=== PATIENT | female | born 1935 | race Caucasian/White ===

== ENCOUNTER 2021-11-05 11:40 | Inpatient (IN) ==
[2021-11-05 13:16] LABS: Basophils # (auto) 0.02 K/uL (0-0.2); Basophils % (auto) 0.3 %; Eosinophils % (auto) 1.6 %; Hematocrit (blood only) 40.9 % (37-47); Hemoglobin 12.9 g/dL (12.0-16.0); Immature Granulocytes # (auto) 0.01 K/uL (0.00-0.02); Immature Granulocytes % (auto) 0.2 %; Lymphocytes # (auto) 1.67 K/uL (1.2-3.4); Lymphocytes % (auto) 27.5 %; Mean Corpuscular Hemoglobin 30.5 pg (25-34); Mean Corpuscular Hgb Conc 31.5 g/dL (32-36); Mean Corpuscular Volume 96.7 fL (80-100); Monocytes # (auto) 0.46 K/uL (0.11-0.59); Monocytes % (auto) 7.6 %; Neutrophils # (auto) 3.81 K/uL (1.4-6.5); Neutrophils % (auto) 62.8 %; Platelet Count 277 K/uL (130-400); RDW Coefficient of Variation 13.6 % (11.5-14.5); RDW Standard Deviation 48.2 fL (36.4-46.3); Red Blood Count 4.23 M/uL (4.2-5.4); White Blood Count 6.07 K/uL (4.8-10.8)
[2021-11-05 13:35] LABS: Albumin Level 3.4 gm/dl (3.4-5.0); Calcium 8.8 mg/dl (8.5-10.1); Creatinine Clr Calc Pharmacy 35.2 ml/min; Est GFR (African American) 44.6 ml/min; Est GFR (Non-African American) 38.5 ml/min; Potassium 3.9 mmol/L (3.5-5.1)
[2021-11-05 13:38] LABS: Albumin Globulin Ratio 0.7 (0.9-2); Bilirubin,Total 0.6 mg/dl (0.2-1); Total Protein 8.4 gm/dl (6.4-8.2)
[2021-11-05] MEDS ORDERED: MECLIZINE HCL 25 MG TAB PO STA (14:07)
--- NOTE | 2021-11-05 14:09 | Emergency Department Note ---
Impression & Plan Dizziness, Hypertensive urgency ED Provider Note NAME: JUHI QUESADA AGE: 86 SEX: F : 1935 ARRIVES VIA: Walk-In INFORMANT: Patient ED PROVIDER(S): Octavio Paris DO CHIEF COMPLAINT: Dizzy HPI: Patient is an 86-year-old female who presents to the ER for dizziness. This started this past . She notes it comes and goes with movement of her head or changing positions. At rest it goes away. She has mild posterior headache 4 out of 10. No weakness or numbness in her arms or legs. She does have some nausea. No chest pain or shortness of breath. No vomiting or diarrhea. No dysuria, urgency, or frequency. She has been taking all of her medications as she normally does which includes amlodipine and metoprolol. She has had this once before and was worked up in nothing was found to be acute. ROS: See above HPI for pertinent positives & negatives. A total of 10 systems reviewed and were otherwise negative. PAST MEDICAL HISTORY:See Below PAST SURGICAL HISTORY:See Below FAMILY HISTORY:See Below SOCIAL HISTORY:See Below HOME MEDICATIONS:See Below ALLERGIES:See Below VITALS:See Below PHYSICAL EXAMINATION: GENERAL: Sitting up in bed, alert, well appearing, well nourished, no distress, non-toxic EYE EXAM: normal conjunctiva. PERRL and EOM's intact. OROPHARYNX: no exudate, no erythema, lips, buccal mucosa, and tongue normal and mucous membranes are moist NECK: supple, no nuchal rigidity, no adenopathy, non-tender LUNGS: Clear to auscultation. Normal chest wall mechanics HEART: no murmurs, S1 normal and S2 normal ABDOMEN: abdomen soft, non-tender, normo-active bowel sounds, no masses, no rebound or guarding. UPPER EXTREMITIES: upper extremities are grossly normal. LOWER EXTREMITIES: No pitting edema. NEURO EXAM: Normal sensorium, cranial nerves II-XII intact, normal speech, no weakness of arms, no weakness of legs. No drift. Finger to nose intact. Gross sensation intact. MEDICAL DECISION MAKING: Patient is an 86-year-old female who presents the ER for dizziness. This appears to be very vertiginous as its changing positions. Vitals were remarkable for systolics in the 230s. IV was established blood work was obtained. Labs show no significant leukocytosis or anemia. BMP with a creatini ne 1.27. LFTs bilirubin were unremarkable. Troponin was negative. UA was unremarkable. Covid was negative. Systolics were in the 230s and trended down to the 190s after IV hydralazine. She was given her oral amlodipine. She is updated bedside. Discussed with hospitalist for further evaluation. Triage Nursing notes reviewed. Limited review of prior medical records performed Vital Signs: reviewed and remarkable for HTN Differential diagnosis: Differential diagnosis includes etiologies such as benign positional vertigo, dehydration, hypovolemia, anemia, tumor, infection, hypoglycemia, electrolyte abnormalities, cardiac sources, intracerebral event, toxicologic, neurological, as well as others were entertained. ER treatment provided: See below Diagnostics interpreted by me: ECG: Sinus rhythm rate of 71 Normal axis PVCs present QTC 449 Cardiac Monitoring: An order was placed for continuous cardiac monitoring. The monitor shows a rate of 80 with sinus rhythm. Laboratory studies: As stated above and show below. Imaging studies: CT angios of the head and neck show Consultation(s): Discussed with hospitalist for further evaluation Procedures: none Critical Care: None Past Med/Surg History Medical History History of CVA (cerebrovascular accident) HTN (hypertension) Post-surgical hypothyroidism PVC (premature ventricular contraction) Thyroid cancer Surgical History H/O thyroidectomy Family History Mother Hypertension Father Hypertension Social History Smoking Status: Former smoker Tobacco Type: Cigarettes Hx Alcohol Use: No Feels Safe at Home: Yes Allergies Allergies Allergy/AdvReac Type Severity Reaction Status Date / Time No Known Allergies Allergy Unverified 11/05/21 15:31 Home Meds Home Medications Medication Instructions Recorded Confirmed acetaminophen 500 mg tablet 500 mg PO HS 11/05/21 11/05/21 (Tylenol Extra Strength) amlodipine 10 mg tablet 10 mg PO DAILY 11/05/21 11/05/21 aspirin 81 mg tablet,delayed 81 mg PO DAILY 11/05/21 11/05/21 release calcium carb-ergocalciferol (vit 4 tab PO DAILY 11/05/21 11/05/21 D2) 600 mg calcium-200 unit tablet cholecalciferol (vitamin D3) 125 125 mcg PO DAILY 11/05/21 11/05/21 mcg (5,000 unit) tablet (Vitamin D3) citalopram 10 mg tablet 10 mg PO DAILY 11/05/21 11/05/21 levothyroxine 75 mcg tablet 75 mcg PO DAILY 11/05/21 11/05/21 (Euthyrox) metoprolol tartrate 25 mg tablet 12.5 mg PO BID 11/05/21 11/05/21 Results & Data (ED) Vital Signs Vital Signs - 24 hr 11/05/21 11:47 11/05/21 14:00 11/05/21 16:00 Temperature 36.1 C L Temperature Source Temporal Artery Scan Pulse Rate 68 Pulse Rate [Right Finger] 67 65 Pulse Rhythm [Right Finger] Regular Regular Pulse Strength [Right Finger] Normal Normal Respiratory Rate 20 18 16 Respiratory Effort / Characteristics Non-Labored Non-Labored Non-Labored Respiratory Depth Normal Normal Normal Respiratory Pattern Regular Regular Blood Pressure 183/85 H Blood Pressure [Right Arm] 209/82 H 196/87 H Blood Pressure Mean 117 Blood Pressure Mean [Right Arm] 124 123 Blood Pressure Position [Right Arm] Lying Lying Pulse Oximetry 96 95 95 Oxygen Delivery Method Room Air Room Air Room Air Sepsis Recent Fever Within 48 Hours No Sepsis New/Unexplained Change in Mental Status N/A Sepsis Action Taken by Nursing No Action Required 11/05/21 19:25 Temperature Temperature Source Pulse Rate Pulse Rate [Right Finger] 80 Pulse Rhythm [Right Finger] Regular Pulse Strength [Right Finger] Normal Respiratory Rate 18 Respiratory Effort / Characteristics Non-Labored Spontaneous Respiratory Depth Normal Respiratory Pattern Regular Blood Pressure Blood Pressure [Right Arm] 191/83 H Blood Pressure Mean Blood Pressure Mean [Right Arm] 119 Blood Pressure Position [Right Arm] Lying Pulse Oximetry 95 Oxygen Delivery Method Room Air Sepsis Recent Fever Within 48 Hours Sepsis New/Unexplained Change in Mental Status Sepsis Action Taken by Nursing Laboratory Data Result diagrams: 11/05/21 12:57 11/05/21 12:57 Lab Results 11/05/21 11/05/21 11/05/21 Range/Units 12:57 12:57 14:02 WBC 6.07 (4.8-10.8) K/uL RBC 4.23 (4.2-5.4) M/uL Hgb 12.9 (12.0-16.0) g/dL Hct 40.9 (37-47) % MCV 96.7 (80-100) fL MCH 30.5 (25-34) pg MCHC 31.5 L (32-36) g/dL RDW Std Deviation 48.2 H (36.4-46.3) fL RDW Coeff of Nathan 13.6 (11.5-14.5) % Plt Count 277 (130-400) K/uL MPV 11.0 H (7.4-10.4) fL Immature Gran % (Auto) 0.2 % Neut % (Auto) 62.8 % Lymph % (Auto) 27.5 % Howard % (Auto) 7.6 % Eos % (Auto) 1.6 % Baso % (Auto) 0.3 % Neut # (Auto) 3.81 (1.4-6.5) K/uL Lymph # (Auto) 1.67 (1.2-3.4) K/uL Howard # (Auto) 0.46 (0.11-0.59) K/uL Eos # (Auto) 0.10 (0-0.5) K/uL Baso # (Auto) 0.02 (0-0.2) K/uL Immature Gran # (Auto) 0.01 (0.00-0.02) K/uL Sodium 135 L (136-145) mmol/L Potassium 3.9 (3.5-5.1) mmol/L Chloride 101 (98-107) mmol/L Carbon Dioxide 29 (21-32) mmol/L Anion Gap 5.0 (3-11) BUN 23 H (7-18) mg/dl Creatinine 1.27 H (0.6-1.2) mg/dl Est Cr Clr Drug Dosing 35.2 ml/min Est GFR ( Amer) 44.6 ml/min Est GFR (Non-Af Amer) 38.5 ml/min BUN/Creatinine Ratio 18.0 (10-20) Glucose 102 H (70-99) mg/dl Calcium 8.8 (8.5-10.1) mg/dl Total Bilirubin 0.6 (0.2-1) mg/dl AST 24 (15-37) U/L ALT 32 (12-78) Alkaline Phosphatase 86 (45-117) U/L Troponin I (0-0.045) ng/ml Total Protein 8.4 H (6.4-8.2) gm/dl Albumin 3.4 (3.4-5.0) gm/dl Globulin 5.0 H (2.5-4.0) gm/dl Albumin/Globulin Ratio 0.7 L (0.9-2) Urine Color Yellow Urine Appearance Clear (Clear) Urine pH 7.5 (4.5-7.5) Ur Specific [place] 1.036 H (1.000-1.030) Urine Protein Negative (Negative) Urine Glucose (UA) Negative (Negative) Urine Ketones Negative (Negative) Urine Blood Negative (Negative) Urine Nitrite Negative (Negative) Urine Bilirubin Negative (Negative) Urine Urobilinogen Negative (Negative) Ur Leukocyte Esterase Negative (Negative) SARS-CoV-2, RNA, NAAT (NEGATIVE) 11/05/21 11/05/21 Range/Units 14:44 19:15 WBC (4.8-10.8) K/uL RBC (4.2-5.4) M/uL Hgb (12.0-16.0) g/dL Hct (37-47) % MCV (80-100) fL MCH (25-34) pg MCHC (32-36) g/dL RDW Std Deviation (36.4-46.3) fL RDW Coeff of Nathan (11.5-14.5) % Plt Count (130-400) K/uL MPV (7.4-10.4) fL Immature Gran % (Auto) % Neut % (Auto) % Lymph % (Auto) % Howard % (Auto) % Eos % (Auto) % Baso % (Auto) % Neut # (Auto) (1.4-6.5) K/uL Lymph # (Auto) (1.2-3.4) K/uL Howard # (Auto) (0.11-0.59) K/uL Eos # (Auto) (0-0.5) K/uL Baso # (Auto) (0-0.2) K/uL Immature Gran # (Auto) (0.00-0.02) K/uL Sodium (136-145) mmol/L Potassium (3.5-5.1) mmol/L Chloride (98-107) mmol/L Carbon Dioxide (21-32) mmol/L Anion Gap (3-11) BUN (7-18) mg/dl Creatinine (0.6-1.2) mg/dl Est Cr Clr Drug Dosing ml/min Est GFR ( Amer) ml/min Est GFR (Non-Af Amer) ml/min BUN/Creatinine Ratio (10-20) Glucose (70-99) mg/dl Calcium (8.5-10.1) mg/dl Total Bilirubin (0.2-1) mg/dl AST (15-37) U/L ALT (12-78) Alkaline Phosphatase (45-117) U/L Troponin I < 0.015 (0-0.045) ng/ml Total Protein (6.4-8.2) gm/dl Albumin (3.4-5.0) gm/dl Globulin (2.5-4.0) gm/dl Albumin/Globulin Ratio (0.9-2) Urine Color Urine Appearance (Clear) Urine pH (4.5-7.5) Ur Specific [place] (1.000-1.030) Urine Protein (Negative) Urine Glucose (UA) (Negative) Urine Ketones (Negative) Urine Blood (Negative) Urine Nitrite (Negative) Urine Bilirubin (Negative) Urine Urobilinogen (Negative) Ur Leukocyte Esterase (Negative) SARS-CoV-2, RNA, NAAT NEGATIVE (NEGATIVE) Administered Medications Hydralazine HCl (Hydralazine Hcl 20 Mg/Ml Vial) 5 mg IV Q6H PRN PRN Reason: HTN Stop: 12/05/21 19:14 Last Admin: 11/05/21 19:25 Dose: 5 mg Documented by: [id number] Discontinued Medications Amlodipine Besylate (Amlodipine Besylate 5 Mg Tab) 10 mg PO NOW ONE Stop: 11/05/21 16:43 Last Admin: 11/05/21 17:57 Dose: 10 mg Documented by: [id number] Hydralazine HCl (Hydralazine Hcl 20 Mg/Ml Vial) 10 mg IV NOW STA Stop: 11/05/21 17:27 Last Admin: 11/05/21 17:57 Dose: 10 mg Documented by: [id number] Sodium Chloride (Nss) 500 mls @ 999 mls/hr IV .Q31M ONE Stop: 11/05/21 16:02 Last Infusion: 11/05/21 17:57 Dose: 0 mls/hr Documented by: [id number] Admin: 11/05/21 16:10 Dose: 999 mls/hr Documented by: [id number] Ioversol (Optiray 320 125ml) 117 ml IV ONCE ONE Stop: 11/05/21 15:01 Last Admin: 11/05/21 15:01 Dose: 117 ml Documented by: [id number] Meclizine HCl (Meclizine Hcl 25 Mg Tab) 25 mg PO NOW STA Stop: 11/05/21 14:08 Last Admin: 11/05/21 14:43 Dose: 25 mg Documented by: [id number] Imaging Data Radiologist's Impression: Head CTA 11/05/21 14:06 CT ANGIOGRAM OF THE BRAIN COMBO; CT ANGIOGRAM OF THE NECK CLINICAL HISTORY: Headache. Dizziness. COMPARISON STUDY: No priors. TECHNIQUE: Unenhanced axial CT scan of the brain is performed. Subsequently, following the IV administration of 117 of Optiray 320, CT angiogram of the head and neck was performed from the aortic arch to the vertex. Images are reviewed in the axial, sagittal, and coronal planes. 3-D MIPS images are created and assessed. IV contrast was administered without complication. All measurements were calculated based on NASCET criteria. A dose lowering technique was uti lized adhering to the principles of ALARA. CT DOSE: 1071.35 mGy.cm FINDINGS: Brain parenchyma: There is age-related involutional change noting [id number] subcortical and periventricular microangiopathic disease. There is no hemorrhage, mass effect, or evidence of acute territorial ischemia by CT criteria. There is no evidence of enhancing mass lesion on the angiogram phase images. A small chronic lacunar infarct is noted in the right cerebellar hemisphere. The ventricles, sulci, and cisterns are prominent secondary to involutional change. Blackburn-white matter differentiation is preserved. No extra- axial fluid collection is seen. Thoracic aorta: There is atherosclerotic calcification of the thoracic aorta. Visualized portions of the thoracic aorta are normal in caliber. The aortic arch demonstrates bovine variant anatomy. Right carotid arterial system: The right common carotid artery is widely patent. Atherosclerotic plaque in the carotid bulb causes approximately 50% luminal narrowing at the origin of the right internal carotid artery. The remainder of the internal carotid artery is widely patent, as is the external carotid artery. Left carotid arterial system: The left common carotid artery is widely patent, as are the left internal and external carotid arteries. Calcified plaque is noted in the carotid bulb. Vertebral arteries: The vertebral arteries are widely patent bilaterally noting left-sided dominance. Subclavian arteries: Widely patent bilaterally. Intracranial vasculature: There is atherosclerotic calcification of the cavernous carotid and vertebral arteries. The internal carotid arteries are patent at the skull base, as are the anterior and middle cerebral arteries bilaterally. The vertebrobasilar system and posterior cerebral arteries are widely patent. The left vertebral artery is dominant. 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 No additional aneurysm is seen. No high-grade stenosis or focal vessel cut off is identified Throughout the intracranial circulation. Jugular veins: Patent bilaterally. Dural sinuses: Patent. Lung apices: Partially visualized upper lobe lung parenchyma appears clear. Soft tissues: The visualized pharyngeal soft tissues are normal in appearance noting angiographic phase technique. The oropharyngeal airway appears widely patent. The thyroid gland is atrophic. The salivary glands are normal in appearance. No cervical lymphadenopathy is seen. Skeletal structures: The skeletal structures are osteopenic. The calvarium appears intact. The cervical spine is maintained noting multilevel spondylosis. No lytic or blastic lesion is seen. Orbits: The bony orbits are intact. Orbital contents are normal as visualized. Sinuses and mastoids: There is mild mucosal thickening in the left frontal sinus. The remaining paranasal sinuses are clear. The mastoid air cells are well pneumatized. IMPRESSION: 1. There is no hemorrhage, mass effect, or evidence of acute territorial isch emia by CT criteria. 2. 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 3. Otherwise unremarkable CT angiogram of the brain. 4. There is approximately 50% focal stenosis at the origin of the right internal carotid artery. 4. Otherwise unremarkable CT angiogram of the neck. ACT 112: Negative or not required by law. Electronically signed by: Hill Gonzalez M.D. 11/05/2021 3:19 PM Neck CTA 11/05/21 14:06 CT ANGIOGRAM OF THE BRAIN COMBO; CT ANGIOGRAM OF THE NECK CLINICAL HISTORY: Headache. Dizziness. COMPARISON STUDY: No priors. TECHNIQUE: Unenhanced axial CT scan of the brain is performed. Subsequently, following the IV administration of 117 of Optiray 320, CT angiogram of the head and neck was performed from the aortic arch to the vertex. Images are reviewed in the axial, sagittal, and coronal planes. 3-D MIPS images are created and assessed. IV contrast was administered without complication. All measurements were calculated based on NASCET criteria. A dose lowering technique was utilized adhering to the principles of ALARA. CT DOSE: 1071.35 mGy.cm FINDINGS: Brain parenchyma: There is age-related involutional change noting [id number] subcortical and periventricular microangiopathic disease. There is no hemorrhage, mass effect, or evidence of acute territorial ischemia by CT criteria. There is no evidence of enhancing mass lesion on the angiogram phase images. A small chronic lacunar infarct is noted in the right cerebellar hemisphere. The ventricles, sulci, and cisterns are prominent secondary to involutional change. Blackburn-white matter differentiation is preserved. No extra- axial fluid collection is seen. Thoracic aorta: There is atherosclerotic calcification of the thoracic aorta. Visualized portions of the thoracic aorta are normal in caliber. The aortic arch demonstrates bovine variant anatomy. Right carotid arterial system: The right common carotid artery is widely patent. Atherosclerotic plaque in the carotid bulb causes approximately 50% luminal narrowing at the origin of the right internal carotid artery. The remainder of the internal carotid artery is widely patent, as is the external carotid artery. Left carotid arterial system: The left common carotid artery is widely patent, as are the left internal and external carotid arteries. Calcified plaque is noted in the carotid bulb. Vertebral arteries: The vertebral arteries are widely patent bilaterally noting left-sided dominance. Subclavian arteries: Widely patent bilaterally. Intracranial vasculature: There is atherosclerotic calcification of the cavernous carotid and vertebral arteries. The internal carotid arteries are patent at the skull base, as are the anterior and middle cerebral arteries bilaterally. The vertebrobasilar system and posterior cerebral arteries are wi lyudmila patent. The left vertebral artery is dominant. 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 No additional aneurysm is seen. No high-grade stenosis or focal vessel cut off is identified Throughout the intracranial circulation. Jugular veins: Patent bilaterally. Dural sinuses: Patent. Lung apices: Partially visualized upper lobe lung parenchyma appears clear. Soft tissues: The visualized pharyngeal soft tissues are normal in appearance noting angiographic phase technique. The oropharyngeal airway appears widely patent. The thyroid gland is atrophic. The salivary glands are normal in appearance. No cervical lymphadenopathy is seen. Skeletal structures: The skeletal structures are osteopenic. The calvarium appears intact. The cervical spine is maintained noting multilevel spondylosis. No lytic or blastic lesion is seen. Orbits: The bony orbits are intact. Orbital contents are normal as visualized. Sinuses and mastoids: There is mild mucosal thickening in the left frontal sinus. The remaining paranasal sinuses are clear. The mastoid air cells are well pneumatized. IMPRESSION: 1. There is no hemorrhage, mass effect, or evidence of acute territorial ischemia by CT criteria. 2. 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 3. Otherwise unremarkable CT angiogram of the brain. 4. There is approximately 50% focal stenosis at the origin of the right internal carotid artery. 4. Otherwise unremarkable CT angiogram of the neck. ACT 112: Negative or not required by law. Electronically signed by: Hill Gonzalez M.D. 11/05/2021 3:19 PM Chest X-Ray 11/05/21 14:09 SINGLE VIEW CHEST CLINICAL HISTORY: Dizziness. FINDINGS: An AP, portable, upright chest radiograph is obtained. No prior studies are available for comparison at the time of dictation. The examination is mildly degraded by portable technique and patient rotation. There is a large hiatal hernia. The cardiomediastinal silhouette is unremarkable noting athe rosclerotic calcification of the thoracic aorta. There is mild bibasilar scarring/atelectasis. The lungs and pleural spaces are otherwise clear. No pneumothorax is seen. The skeletal structures are osteopenic. The bony thorax is grossly intact. IMPRESSION: 1. No acute cardiopulmonary abnormality. 2. Large hiatal hernia. ACT 112: Negative or not required by law. Electronically signed by: Hill Gonzalez M.D. 11/05/2021 3:04 PM Discharge Plan Visit Data Chief Complaint: Dizziness Stated Complaint: DIZZINESS, NAUSEA, GENERALIZED PAIN ED Provider: Octavio Paris Discharge Problem: Dizziness, Hypertensive urgency Forms Stand Alone Forms: My [facility] Prescriptions Prescriptions: No Action citalopram 10 mg tablet 10 mg PO DAILY RF: 0 aspirin [Aspir-Low] 81 mg Tablet,Delayed Release (Dr/Ec) 81 mg PO DAILY RF: 0 acetaminophen [Tylenol Extra Strength] 500 mg Tablet 500 mg PO HS RF: 0 levothyroxine [Euthyrox] 75 mcg tablet 75 mcg PO DAILY RF: 0 amlodipine 10 mg tablet 10 mg PO DAILY RF: 0 Calcium + Vitamin D 600 mg calcium- 200 unit Tablet 4 tab PO DAILY RF: 0 metoprolol tartrate 25 mg tablet 12.5 mg PO BID RF: 0 cholecalciferol (vitamin D3) [Vitamin D3] 125 mcg (5,000 unit) Tablet 125 mcg PO DAILY RF: 0 Referrals Referrals: PCP,NO [Primary Care Provider] -
[2021-11-05] MEDS ORDERED: OPTIRAY 320 125ml IV ONE (15:00)
--- NOTE | 2021-11-05 15:06 | XRay Report ---
SINGLE VIEW CHEST CLINICAL HISTORY: Dizziness. FINDINGS: An AP, portable, upright chest radiograph is obtained. No prior studies are available for c omparison at the time of dictation. The examination is mildly degraded by portable technique and tomasz ent rotation. There is a large hiatal hernia. The cardiomediastinal silhouette is unremarkable noting atherosclerotic calcification of the thoracic aorta. There is mild bibasilar scarring/atelectasis. T he lungs and pleural spaces are otherwise clear. No pneumothorax is seen. The skeletal structures are osteopenic. The bony thorax is grossly intact. IMPRESSION: 1. No acute cardiopulmonary abnormality. 2. Large hiatal hernia. ACT 112: Negative or not required by law. Electronically signed by: Hill Gonzalez M.D. 11/05/2021 3:04 PM
--- NOTE | 2021-11-05 15:20 | CT Scan Report ---
CT ANGIOGRAM OF THE BRAIN COMBO; CT ANGIOGRAM OF THE NECK CLINICAL HISTORY: Headache. Dizziness. COMPARISON STUDY: No priors. TECHNIQUE: Unenhanced axial CT scan of the brain is performed. Subsequently, following the IV adminis tration of 117 of Optiray 320, CT angiogram of the head and neck was performed from the aortic arch t o the vertex. Images are reviewed in the axial, sagittal, and coronal planes. 3-D MIPS images are cre ated and assessed. IV contrast was administered without complication. All measurements were calculate d based on NASCET criteria. A dose lowering technique was utilized adhering to the principles of ALA RA. CT DOSE: 1071.35 mGy.cm FINDINGS: Brain parenchyma: There is age-related involutional change noting [id number] subcortical and pe riventricular microangiopathic disease. There is no hemorrhage, mass effect, or evidence of acute ter ritorial ischemia by CT criteria. There is no evidence of enhancing mass lesion on the angiogram phas e images. A small chronic lacunar infarct is noted in the right cerebellar hemisphere. The ventricles , sulci, and cisterns are prominent secondary to involutional change. Blackburn-white matter differentiati on is preserved. No extra-axial fluid collection is seen. Thoracic aorta: There is atherosclerotic calcification of the thoracic aorta. Visualized portions of the thoracic aorta are normal in caliber. The aortic arch demonstrates bovine variant anatomy. Right carotid arterial system: The right common carotid artery is widely patent. Atherosclerotic plaq ue in the carotid bulb causes approximately 50% luminal narrowing at the origin of the right internal carotid artery. The remainder of the internal carotid artery is widely patent, as is the external ca rotid artery. Left carotid arterial system: The left common carotid artery is widely patent, as are the left internal medicine veterinary technician al and external carotid arteries. Calcified plaque is noted in the carotid bulb. Vertebral arteries: The vertebral arteries are widely patent bilaterally noting left-sided dominance. Subclavian arteries: Widely patent bilaterally. Intracranial vasculature: There is atherosclerotic calcification of the cavernous carotid and vertebr al arteries. The internal carotid arteries are patent at the skull base, as are the anterior and midd le cerebral arteries bilaterally. The vertebrobasilar system and posterior cerebral arteries are wide ly patent. The left vertebral artery is dominant. 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 No additional aneurysm is seen. No high-grade stenosis or focal vessel cut off is identified Throughout the intracranial circulation. Jugular veins: Patent bilaterally. Dural sinuses: Patent. Lung apices: Partially visualized upper lobe lung parenchyma appears clear. Soft tissues: The visualized pharyngeal soft tissues are normal in appearance noting angiographic pha se technique. The oropharyngeal airway appears widely patent. The thyroid gland is atrophic. The sali vary glands are normal in appearance. No cervical lymphadenopathy is seen. Skeletal structures: The skeletal structures are osteopenic. The calvarium appears intact. The cervic al spine is maintained noting multilevel spondylosis. No lytic or blastic lesion is seen. Orbits: The bony orbits are intact. Orbital contents are normal as visualized. Sinuses and mastoids: There is mild mucosal thickening in the left frontal sinus. The remaining paran emelyn sinuses are clear. The mastoid air cells are well pneumatized. IMPRESSION: 1. There is no hemorrhage, mass effect, or evidence of acute territorial ischemia by CT criteria. 2. 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 3. Otherwise unremarkable CT angiogram of the brain. 4. There is approximately 50% focal stenosis at the origin of the right internal carotid artery. 4. Otherwise unremarkable CT angiogram of the neck. ACT 112: Negative or not required by law. Electronically signed by: Hill Gonzalez M.D. 11/05/2021 3:19 PM
[2021-11-05] MEDS ORDERED: SODIUM CHLORIDE 0.9% 500 ML IV ONE (15:32)
[2021-11-05] MEDS ORDERED: amLODIPine BESYLATE 5 MG TAB PO ONE (16:42)
[2021-11-05 16:48] LABS: Appearance Urine Clear (Clear); Bilirubin Urine Negative (Negative); Blood Urine Negative (Negative); Color Urine Yellow; Glucose Urine UA Negative (Negative); Ketones Urine Negative (Negative); Leukocyte Esterase Urine Negative (Negative); Nitrite Urine Negative (Negative); Protein Urine Negative (Negative); Specific Gravity Urine 1.036 (1.000-1.030); Urobilinogen Urine Negative (Negative); pH Urine 7.5 (4.5-7.5)
[2021-11-05] MEDS ORDERED: hydrALAZINE HCL 20 MG/ML VIAL IV STA (17:26)
[2021-11-05] MEDS ORDERED: hydrALAZINE HCL 20 MG/ML VIAL IV PRN (19:01)
--- NOTE | 2021-11-05 19:45 | History & Physical Report ---
Date of Service November 05, 2021 Assessment & Plan (1) Hypertensive urgency: Plan: -Admit to telemetry -Patient presenting from home with reports of dizziness and nausea -In the ED, found to be significantly hypertensive with BP 209/82 -Patient was given her home dose of amlodipine 10 mg and 10 mg IV hydralazine -Continue home dose amlodipine 10 mg, metoprolol 12.5 mg twice daily, add losartan 25 mg. Continue as needed hydralazine -Dizziness likely due to uncontrolled BP. CTA head and neck unremarkable for acute findings. 50% focal stenosis at the origin of the right internal carotid artery. 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 (2) Post-surgical hypothyroidism: Plan: -Continue levothyroxine (3) PVC (premature ventricular contraction): Plan: -On metoprolol (4) DVT prophylaxis: Plan: -SQ heparin History of Present Illness Chief Complaint: Dizziness, Nausea Primary Care Provider: NO PCP 86-year-old female with PMH HTN, thyroid cancer s/p thyroidectomy, PVCs, and other problems listed below who presents to the ED for evaluation of dizziness and nausea. Patient is currently visiting from [place]. She has been staying with her daughter since August. Patient reports that over the past 1 week or so, she has had worsening dizziness. Dizziness seems to come on with standing and movement of her head. She also has developed nausea associated with it. Reports that she has been having trouble ambulating. No syncopal event. Denies chest pain, palpitations, shortness of breath. No other recent illnesses, fevers, chills. Denies abdominal pain, vomiting, diarrhea. No urinary symptoms. In the ED, patient is found to be significantly hypertensive with BP 209/82. Labs are unremarkable. Patient was given her home dose of amlodipine 10 mg and IV hydralazine 10 mg, meclizine, IVF. Allergies Allergy/AdvReac Type Severity Reaction Status Date / Time No Known Allergies Allergy Unverified 11/05/21 15:31 Home Medications Medication Instructions Recorded Confirmed Type acetaminophen 500 mg tablet 500 mg PO HS 11/05/21 11/05/21 History (Tylenol Extra Strength) amlodipine 10 mg tablet 10 mg PO DAILY 11/05/21 11/05/21 History aspirin 81 mg tablet,delayed 81 mg PO DAILY 11/05/21 11/05/21 History release calcium carb-ergocalciferol (vit 4 tab PO DAILY 11/05/21 11/05/21 History D2) 600 mg calcium-200 unit tablet cholecalciferol (vitamin D3) 125 125 mcg PO DAILY 11/05/21 11/05/21 History mcg (5,000 unit) tablet (Vitamin D3) citalopram 10 mg tablet 10 mg PO DAILY 11/05/21 11/05/21 History levothyroxine 75 mcg tablet 75 mcg PO DAILY 11/05/21 11/05/21 History (Euthyrox) metoprolol tartrate 25 mg tablet 12.5 mg PO BID 11/05/21 11/05/21 History Past Med/Surg History Medical History History of CVA (cerebrovascular accident) HTN (hypertension) Post-surgical hypothyroidism PVC (premature ventricular contraction) Thyroid cancer Surgical History H/O thyroidectomy Family History Mother Hypertension Father Hypertension Social History Smoking Status: Former smoker Tobacco Type: Cigarettes Hx Alcohol Use: No Feels Safe at Home: Yes Review of Systems Review of Systems: ROS per HPI, all other systems reviewed and negative Physical Exam Constitutional: WD/WN, vitals as above Eyes: PERRL, conjunctivae normal, anicteric sclerae ENMT: external ear and nose normal, oropharynx normal Respiratory: normal respiratory effort, lungs clear to auscultation Cardiovascular: Rate/Rhythm: regular rate and regular rhythm Vessels: normal peripheral pulses Extremities: no edema Gastrointestinal (Abdomen): normal bowel sounds, soft, nontender, no hepatosplenomegaly Musculoskeletal: no cyanosis or clubbing, extremities motor strength 5/5 Skin: no rashes, warm and dry Neurologic: PERRL, EOMI, accommodation nl, no face palsy, no dysarthria Psychiatric: A+Ox3, euthymic affect Results & Data Results & Data ([facility]) Vital Signs (Past 12 Hours) Vital Signs Temp Pulse Pulse Resp BP BP Pulse Ox 11/05/21 19:25 80 18 191/83 H 95 11/05/21 16:00 65 16 196/87 H 95 11/05/21 14:00 67 18 209/82 H 95 11/05/21 11:47 36.1 C L 68 20 183/85 H 96 Laboratory Results Short CBC 11/05/21 Range/Units 12:57 WBC 6.07 (4.8-10.8) K/uL Hgb 12.9 (12.0-16.0) g/dL Hct 40.9 (37-47) % Plt Count 277 (130-400) K/uL BMP 11/05/21 12:57 Sodium 135 L Potassium 3.9 Chloride 101 Carbon Dioxide 29 BUN 23 H Creatinine 1.27 H Glucose 102 H Calcium 8.8 Cardiac Enzymes 11/05/21 Range/Units 14:44 Troponin I < 0.015 (0-0.045) ng/ml Liver Function 11/05/21 Range/Units 12:57 Total Bilirubin 0.6 (0.2-1) mg/dl AST 24 (15-37) U/L ALT 32 (12-78) Alkaline Phosphatase 86 (45-117) U/L Albumin 3.4 (3.4-5.0) gm/dl Urine 11/05/21 Range/Units 14:02 Urine Color Yellow Urine Appearance Clear (Clear) Urine pH 7.5 (4.5-7.5) Ur Specific [place] 1.036 H (1.000-1.030) Urine Protein Negative (Negative) Urine Glucose (UA) Negative (Negative) Diagnostic Findings Head CTA 11/05/21 14:06 CT ANGIOGRAM OF THE BRAIN COMBO; CT ANGIOGRAM OF THE NECK CLINICAL HISTORY: Headache. Dizziness. COMPARISON STUDY: No priors. TECHNIQUE: Unenhanced axial CT scan of the brain is performed. Subsequently, following the IV administration of 117 of Optiray 320, CT angiogram of the head and neck was performed from the aortic arch to the vertex. Images are reviewed in the axial, sagittal, and coronal planes. 3-D MIPS images are created and assessed. IV contrast was administered without complication. All measurements were calculated based on NASCET criteria. A dose lowering technique was utilized adhering to the principles of ALARA. CT DOSE: 1071.35 mGy.cm FINDINGS: Brain parenchyma: There is age-related involutional change noting [id number] subcortical and periventricular microangiopathic disease. There is no hemorrhage, mass effect, or evidence of acute territorial ischemia by CT criteria. There is no evidence of enhancing mass lesion on the angiogram phase images. A small chronic lacunar infarct is noted in the right cerebellar hemisphere. The ventricles, sulci, and cisterns are prominent secondary to involutional change. Blackburn-white matter differentiation is preserved. No extra- axial fluid collection is seen. Thoracic aorta: There is atherosclerotic calcification of the thoracic aorta. Visualized portions of the thoracic aorta are normal in caliber. The aortic arch demonstrates bovine variant anatomy. Right carotid arterial system: The right common carotid artery is widely patent. Atherosclerotic plaque in the carotid bulb causes approximately 50% luminal narrowing at the origin of the right internal carotid artery. The remainder of the internal carotid artery is widely patent, as is the external carotid artery. Left carotid arterial system: The left common carotid artery is widely patent, as are the left internal and external carotid arteries. Calcified plaque is noted in the carotid bulb. Vertebral arteries: The vertebral arteries are widely patent bilaterally noting left-sided dominance. Subclavian arteries: Widely patent bilaterally. Intracranial vasculature: There is atherosclerotic calcification of the cavernous carotid and vertebral arteries. The internal carotid arteries are patent at the skull base, as are the anterior and middle cerebral arteries bilaterally. The vertebrobasilar system and posterior cerebral arteries are widely patent. The left vertebral artery is dominant. 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 No additional aneurysm is seen. No high-grade stenosis or focal vessel cut off is identified Throughout the intracranial circulation. Jugular veins: Patent bilaterally. Dural sinuses: Patent. Lung apices: Partially visualized upper lobe lung parenchyma appears clear. Soft tissues: The visualized pharyngeal soft tissues are normal in appearance noting angiographic phase technique. The oropharyngeal airway appears widely patent. The thyroid gland is atrophic. The salivary glands are normal in appearance. No cervical lymphadenopathy is seen. Skeletal structures: The skeletal structures are osteopenic. The calvarium appears intact. The cervical spine is maintained noting multilevel spondylosis. No lytic or blastic lesion is seen. Orbits: The bony orbits are intact. Orbital contents are normal as visualized. Sinuses and mastoids: There is mild mucosal thickening in the left frontal sinus. The remaining paranasal sinuses are clear. The mastoid air cells are well pneumatized. IMPRESSION: 1. There is no hemorrhage, mass effect, or evidence of acute territorial ischemia by CT criteria. 2. 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 3. Otherwise unremarkable CT angiogram of the brain. 4. There is approximately 50% focal stenosis at the origin of the right internal carotid artery. 4. Otherwise unremarkable CT angiogram of the neck. ACT 112: Negative or not required by law. Electronically signed by: Hill Gonzalez M.D. 11/05/2021 3:19 PM Neck CTA 11/05/21 14:06 CT ANGIOGRAM OF THE BRAIN COMBO; CT ANGIOGRAM OF THE NECK CLINICAL HISTORY: Headache. Dizziness. COMPARISON STUDY: No priors. TECHNIQUE: Unenhanced axial CT scan of the brain is performed. Subsequently, following the IV administration of 117 of Optiray 320, CT angiogram of the head and neck was performed from the aortic arch to the vertex. Images are reviewed in the axial, sagittal, and coronal planes. 3-D MIPS images are created and assessed. IV contrast was administered without complication. All measurements were calculated based on NASCET criteria. A dose lowering technique was u tilized adhering to the principles of ALARA. CT DOSE: 1071.35 mGy.cm FINDINGS: Brain parenchyma: There is age-related involutional change noting [id number]-oc-hfbvcgev subcortical and periventricular microangiopathic disease. There is no hemorrhage, mass effect, or evidence of acute territorial ischemia by CT criteria. There is no evidence of enhancing mass lesion on the angiogram phase images. A small chronic lacunar infarct is noted in the right cerebellar hemisphere. The ventricles, sulci, and cisterns are prominent secondary to involutional change. Blackburn-white matter differentiation is preserved. No extra- axial fluid collection is seen. Thoracic aorta: There is atherosclerotic calcification of the thoracic aorta. Visualized portions of the thoracic aorta are normal in caliber. The aortic arch demonstrates bovine variant anatomy. Right carotid arterial system: The right common carotid artery is widely patent. Atherosclerotic plaque in the carotid bulb causes approximately 50% luminal narrowing at the origin of the right internal carotid artery. The remainder of the internal carotid artery is widely patent, as is the external carotid artery. Left carotid arterial system: The left common carotid artery is widely patent, as are the left internal and external carotid arteries. Calcified plaque is noted in the carotid bulb. Vertebral arteries: The vertebral arteries are widely patent bilaterally noting left-sided dominance. Subclavian arteries: Widely patent bilaterally. Intracranial vasculature: There is atherosclerotic calcification of the cavernous carotid and vertebral arteries. The internal carotid arteries are patent at the skull base, as are the anterior and middle cerebral arteries bilaterally. The vertebrobasilar system and posterior cerebral arteries are widely patent. The left vertebral artery is dominant. 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 No additional aneurysm is seen. No high-grade stenosis or focal vessel cut off is identified Throughout the intracranial circulation. Jugular veins: Patent bilaterally. Dural sinuses: Patent. Lung apices: Partially visualized upper lobe lung parenchyma appears clear. Soft tissues: The visualized pharyngeal soft tissues are normal in appearance noting angiographic phase technique. The oropharyngeal airway appears widely patent. The thyroid gland is atrophic. The salivary glands are normal in appearance. No cervical lymphadenopathy is seen. Skeletal structures: The skeletal structures are osteopenic. The calvarium appea rs intact. The cervical spine is maintained noting multilevel spondylosis. No lytic or blastic lesion is seen. Orbits: The bony orbits are intact. Orbital contents are normal as visualized. Sinuses and mastoids: There is mild mucosal thickening in the left frontal sinus. The remaining paranasal sinuses are clear. The mastoid air cells are well pneumatized. IMPRESSION: 1. There is no hemorrhage, mass effect, or evidence of acute territorial ischemia by CT criteria. 2. 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 3. Otherwise unremarkable CT angiogram of the brain. 4. There is approximately 50% focal stenosis at the origin of the right internal carotid artery. 4. Otherwise unremarkable CT angiogram of the neck. ACT 112: Negative or not required by law. Electronically signed by: Hill Gonzalez M.D. 11/05/2021 3:19 PM Chest X-Ray 11/05/21 14:09 SINGLE VIEW CHEST CLINICAL HISTORY: Dizziness. FINDINGS: An AP, portable, upright chest radiograph is obtained. No prior studies are available for comparison at the time of dictation. The examination is mildly degraded by portable technique and patient rotation. There is a large hiatal hernia. The cardiomediastinal silhouette is unremarkable noting atherosclerotic calcification of the thoracic aorta. There is mild bibasilar scarring/atelectasis. The lungs and pleural spaces are otherwise clear. No pneumothorax is seen. The skeletal structures are osteopenic. The bony thorax is grossly intact. IMPRESSION: 1. No acute cardiopulmonary abnormality. 2. Large hiatal hernia. ACT 112: Negative or not required by law. Electronically signed by: Hill Gonzalez M.D. 11/05/2021 3:04 PM Code Status & VTE Plan Code Status Patient is a full code as per my discussion with her. VTE Prophylaxis Plan VTE Prophylaxis will be ordered: Yes Supervising Physician Co-Signing Physician Notes 86-year-old female with PMH HTN, thyroid cancer s/p thyroidectomy, PVCs, presented to the ED 11/15/2021 dizziness, sick and stomach and nausea. Patient reports taking her medications compliantly but reports not measuring her blood pressure that often but reports her blood pressure does not go above 150s. Patient found to have high blood pressure at ED presentation. We will continue to monitor, titrate her blood pressure medication, as needed me dications in place. Upon examination: GENERAL: Alert and oriented x3. NAD, on RA. HEENT: No pallor, no icterus. Pupils equal, round and reactive to light. Oral mucosa moist. NECK: No JVD, no neck masses. HEART: S1 and S2 heard. Regular rate and rhythm. No murmur, no gallop. RESPIRATORY SYSTEM: Normal AP diameter. No accessory muscle use. No wheezing, no crackles. ABDOMEN: Soft, bowel sounds present, nontender, no distention. CENTRAL NERVOUS SYSTEM: No facial droop. Speech is clear. Obeys simple commands. Moves extremities. EXTREMITIES: No edema, no erythema seen. I have seen and examined the patient and have discussed the case with the provider above. I agree with the assessment and plan as stated.
[2021-11-05] MEDS: LOSARTAN POTASSIUM 25 MG TAB PO SCH (20:23)
[2021-11-05] MEDS ORDERED: NON-FORMULARY MEDICATION (Citalopram 10 mg tablet) PO SCH (21:00)
[2021-11-05] MEDS ORDERED: PROMETHAZINE HCL 12.5 MG in SODIUM CHLORIDE 0.9% 50 ML IV PRN (22:35)
[2021-11-05] MEDS ORDERED: PROMETHAZINE 12.5 MG/50.5 ML NSS IV ONE (22:41)
[2021-11-05] MEDS: METOPROLOL TARTRATE 25 MG TAB PO SCH (23:02)
[2021-11-05] MEDS: CITALOPRAM 20 MG TAB PO SCH (23:04)
[2021-11-05] MEDS: HEPARIN SOD 5,000 UNIT/0.5 ML VIAL SQ SCH (23:59)
[2021-11-06 05:31] LABS: Hematocrit (blood only) 36.6 % (37-47); Hemoglobin 11.7 g/dL (12.0-16.0); Mean Corpuscular Hemoglobin 30.2 pg (25-34); Mean Corpuscular Volume 94.6 fL (80-100); Platelet Count 249 K/uL (130-400); RDW Coefficient of Variation 13.7 % (11.5-14.5); RDW Standard Deviation 47.1 fL (36.4-46.3); Red Blood Count 3.87 M/uL (4.2-5.4); White Blood Count 6.41 K/uL (4.8-10.8)
[2021-11-06] MEDS: HEPARIN SOD 5,000 UNIT/0.5 ML VIAL SQ SCH ×3 (06:02→21:30)
[2021-11-06] MEDS: LEVOTHYROXINE SODIUM 75 MCG TABLET PO SCH (06:06)
[2021-11-06 06:07] LABS: BUN Creatinine Ratio 18.7 (10-20); Calcium 8.5 mg/dl (8.5-10.1); Creatinine Clr Calc Pharmacy 39.5 ml/min; Est GFR (African American) 51.3 ml/min; Est GFR (Non-African American) 44.3 ml/min; Potassium 3.8 mmol/L (3.5-5.1)
[2021-11-06] MEDS: amLODIPine BESYLATE 5 MG TAB PO SCH (08:51)
[2021-11-06] MEDS: LOSARTAN POTASSIUM 25 MG TAB PO SCH (08:52)
[2021-11-06] MEDS: METOPROLOL TARTRATE 25 MG TAB PO SCH ×2 (08:53→21:30)
[2021-11-06] MEDS: ASPIRIN 81 MG ECTAB PO SCH (08:53)
--- NOTE | 2021-11-06 12:26 | Neurology Consultation ---
Date of Consultation November 06, 2021 Assessment & Plan (1) Dizziness: 1. PT - Esther manuever- and evaluation of gait 2. MRI brain with and without contrast - r/o stroke and tumor- will need to be done as outpatient open facility 3. CTA head and neck - no significant stenosis. 3.5 mm aneurysm can be evaluated by neurosurgery as outpatient 4. caution patient regarding cold and sinus medications, also likely still grieving loss of . 5. if stays local will see her in our office in 2-3 weeks if return to [place] will need to be set up for neurology follow up 6. ok to discharge form neurology stand point. 7. continue aspirin 81 mg daily 8. optimize HTN HLD DM LDL <70 (2) Hypertensive urgency: 1. blood pressure control Supervising Physician Co-Signing Physician Notes I have seen and discussed above patient with Dr Bladimir Ny, neurology I have interviewed and examined Deisy today and find her to be pretty normal neurologically with no head movement induced vertigo normal eye movements normal speech normal facial motility and strength without any cerebellar dysfunction and apparently able to ambulate without deficits. This apparently occurred 4 years ago or least a similar event that and she was found to have a "stroke" and was advised to see neurology and apparently did go for an evaluation with a balance type center and was told that she did not have vertigo The current symptoms are similar have been present since but have now responded to appropriate medications for vertigo and at this point with negative imaging studies I think she probably could be discharged on continued low-dose aspirin therapy and scheduled for an outpatient open MRI as she will not do a closed unit having had extreme claustrophobic reactions in the past We have discussed our impressions with her current attending and I think discharge from the emergency room inpatient unit will occur today. We will try to arrange for the outpatient MRI scan after she has a return visit with us in [facility] She may however be on route to return to her home in [place] and if this is the case then she can be followed up there and will at any rate need a follow-up CT angiography study in a year to check on the incidental small intracranial aneurysm which of course has nothing to do with her current complaints Bladimir Ny MD History of Present Illness Reason for Consultation: dizziness Requesting Physician: Isabelle Murray DO Attending Physician: Isabelle Murray DO History of Present Illness Deisy is an 86 year old female with PMH- HTN, thyroid cancer s/p thyroidectomy, PVCs. She presented to the ED 11/05/21 for evaluation of dizziness and nausea.She is currently visiting from [place] and staying with her daughter since August.Over the past 1 week or so, she has had worsening dizziness.The dizziness seems to happen with standing and movement of her head. She also has developed nausea associated with it.She has been having trouble ambulating. No syncopal event. On admission she was significantly hypertensive with BP 209/82. She was given her home dose of amlodipine 10 mg and IV hydralazine 10 mg, meclizine, IVF. She is feeling much better now. She had a previous MRI brain which showed she had an old stroke. This was done about 4 years ago after an episode of dizziness. She took her blood pressure medicine as prescribed but she had also taking some sinus medication which likely caused her blood pressure to spike. She can not tolerate MRI unless it is open but she is now feeling much better. She is here visiting her daughter because her in August and it is the first time she was able to visit for years. Her grandkids came to visit and this made her very nervous. denies, CP, SOB, abdominal pain, one sided weakness, numbness tingling. Allergies Allergy/AdvReac Type Severity Reaction Status Date / Time No Known Allergies Allergy Unverified 11/05/21 15:31 Home Medications Medication Instructions Recorded Confirmed Type acetaminophen 500 mg tablet 500 mg PO HS 11/05/21 11/05/21 History (Tylenol Extra Strength) amlodipine 10 mg tablet 10 mg PO DAILY 11/05/21 11/05/21 History aspirin 81 mg tablet,delayed 81 mg PO DAILY 11/05/21 11/05/21 History release calcium carb-ergocalciferol (vit 4 tab PO DAILY 11/05/21 11/05/21 History D2) 600 mg calcium-200 unit tablet cholecalciferol (vitamin D3) 125 125 mcg PO DAILY 11/05/21 11/05/21 History mcg (5,000 unit) tablet (Vitamin D3) citalopram 10 mg tablet 10 mg PO DAILY 11/05/21 11/05/21 History levothyroxine 75 mcg tablet 75 mcg PO DAILY 11/05/21 11/05/21 History (Euthyrox) metoprolol tartrate 25 mg tablet 12.5 mg PO BID 11/05/21 11/05/21 History Patient History Medical History History of CVA (cerebrovascular accident) HTN (hypertension) Post-surgical hypothyroidism PVC (premature ventricular contraction) Thyroid cancer Surgical History H/O thyroidectomy Family History Mother Hypertension Father Hypertension Social History Smoking Status: Former smoker Tobacco Type: Cigarettes Hx Alcohol Use: No Feels Safe at Home: Yes Assistive Devices: None Review of Systems Review of Systems: All systems reviewed & are unremarkable except as noted in HPI & below Physical Exam Physical Exam: Physical Exam: Constitutional: appearance over nourished, healthy Ears, Nose, Mouth and Throat: mucous membranes moist, no injection and skin normal, eyes normal Cardiovascular: normal S-1 and S-2 and regular rate and rhythm Respiratory: clear to auscultation (CTA) and no rales, rhonchi or wheeze Musculoskeletal: no peripheral edema and good distal pulses Skin: no stigmata of neurocutaneous disease noted and normal and intact Eyes: extraocular muscles intact (EOMI) and pupils equal, round and reactive to light (PERRL), no nystagmus NEUROLOGIC EXAMINATION: Mental status: Alert and interactive Oriented to full date and location Oriented to person Speech fluent with no evidence of aphasia Cranial Nerves no facial droop or asymmetry Reflexes: Deep tendon reflexes were symmetrical decrease LE Sensory: light cool touch Coordination: finger to nose Gait/Stance: Posture lying in bed Motor: Negative for pronator drift of out stretched arms with eyes closed. 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 hip flex 5/5 Results & Data ([facility]) Vital Signs (Past 12 Hours) Vital Signs Pulse Resp BP Pulse Ox 11/06/21 09:30 66 16 142/54 H 95 11/06/21 08:30 65 20 158/57 H 96 11/06/21 08:00 61 20 138/52 L 96 11/06/21 07:30 63 16 144/58 H 96 11/06/21 07:00 64 20 139/62 95 11/06/21 06:30 58 L 16 133/56 L 96 11/06/21 05:12 61 16 157/65 H 96 11/06/21 05:00 63 16 157/65 H 96 11/06/21 03:35 60 18 128/54 L 96 11/06/21 02:00 63 18 126/51 L 96 Laboratory Results Abnormal lab results 11/05/21 11/05/21 11/05/21 Range/Units 12:57 12:57 14:02 RBC (4.2-5.4) M/uL Hgb (12.0-16.0) g/dL Hct (37-47) % MCHC 31.5 L (32-36) g/dL RDW Std Deviation 48.2 H (36.4-46.3) fL MPV 11.0 H (7.4-10.4) fL Sodium 135 L (136-145) mmol/L BUN 23 H (7-18) mg/dl Creatinine 1.27 H (0.6-1.2) mg/dl Glucose 102 H (70-99) mg/dl Total Protein 8.4 H (6.4-8.2) gm/dl Globulin 5.0 H (2.5-4.0) gm/dl Albumin/Globulin Ratio 0.7 L (0.9-2) Ur Specific [place] 1.036 H (1.000-1.030) 11/06/21 11/06/21 Range/Units 04:53 04:53 RBC 3.87 L (4.2-5.4) M/uL Hgb 11.7 L (12.0-16.0) g/dL Hct 36.6 L (37-47) % MCHC (32-36) g/dL RDW Std Deviation 47.1 H (36.4-46.3) fL MPV 11.0 H (7.4-10.4) fL Sodium (136-145) mmol/L BUN 21 H (7-18) mg/dl Creatinine (0.6-1.2) mg/dl Glucose (70-99) mg/dl Total Protein (6.4-8.2) gm/dl Globulin (2.5-4.0) gm/dl Albumin/Globulin Ratio (0.9-2) Ur Specific [place] [facility] (1.000-1.030) Diagnostic Findings CXR-no acute cardiopulmonary abnormality. Large hiatal hernia. CTA head and neck-There is no hemorrhage, mass effect, or evidence of acute territorial ischemia by CT criteria. 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 . Otherwise unremarkable CT angiogram of the brain. There is approximately 50% focal stenosis at the origin of the right internal carotid artery.otherwise. unremarkable CT angiogram of the neck.
--- NOTE | 2021-11-06 12:53 | Hospitalist Progress Note ---
Date of Service November 06, 2021 Assessment & Plan (1) Hypertensive urgency: Plan: BP improved into the normal range with hydralazine. Cont losartan 25mg daily (new med), amlodipine 10mg daily, and lopressor 12.5mg PO BID per home regimen. PRN hydralazine as needed. CTA head and neck revealing 50% focal stenosis at the origin of the right internal carotid artery. 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 (2) Dizziness: Plan: Dizziness persists with head turning per patient report despite feeling better. Normal neuro exam and workup including head and neck CTA. CXR normal and no evidence of infection otherwise. Will check orthostatics, consult PT and OT as patient states "it was wild" when referring to her attempts to ambulate last evening. Will also consult neurology for thoughts on dizziness etiology. No current outpatient records available for review as she is from out [facility]. (3) Post-surgical hypothyroidism: Plan: -Continue levothyroxine per home regimen. (4) PVC (premature ventricular contraction): Plan: h/o PVCs on metoprolol per home regimen. (5) DVT prophylaxis: Plan: -SQ heparin (6) DVT prophylaxis: Admission and Anticipated Discharge Date Admission Date: November 05, 2021 Subjective 86 yo F presents with acute dizziness that began a few days ago. She reports "furniture walking" for about one year now. She reports having a runny nose last week for a few days and took an OTC cold medication on Sat. Subsequent dizziness ensued. She denies checking her BP at home which was elevated coming in and is now improved into the normal range. She denies any runny nose or sinus pain or ear full ness at this time but still has persistent dizziness when she turns her head side to side. TM are clear on evaluation. She is not acutely ill-appearing. She denies any cough, fevers, chills or other infetious symptoms at this time. She is reporting feeling improved in that she feels less "sick to my stomach" and feels "my head is clearer." Overnight she was placed on 2LPM [place] oxygen supplementation because her resting oxygen (not asleep) went to 88%. She doesn't typically use oxygen at home and is currently visiting her daughter from [place]. She reports long-standing neck pain and states that she has spinal stenosis which she feels may have something to do with her symptoms. She has yet to discuss treatment options with her PCP and doesn't see a chiropractor. Review of Systems Review of Systems: All systems were reviewed and negative except as indicated above. Physical Exam Physical Exam: CONSTITUTIONAL: obese, vitals as above, generally well-justice earing, NAD EYES: EOMI bilaterally, PERRL, normal conjunctivae, no scleral icterus ENT: external ear and nose normal, oropharynx clear, no TM abnormality, NECK: trachea midline, RESPIRATORY: clear to auscultation bilaterally, no crackles, rales or wheezes, normal respiratory effort CARDIOVASCULAR: regular rate and rhythm, S1 and 2 heard without murmurs, gallops or rubs, no JVD, no peripheral edema, GASTROINTESTINAL: soft, nontender, ND, no guarding MUSCULOSKELETAL: strength 5/5 throughout, head is normocephalic and atraumatic, SKIN: warm and dry, NEUROLOGIC: could not elicits patellar DTRs as patient was tensing. No facial palsy, no dysarthria. CN 2-12 grossly intact, no sensory deficit, normal cognition, normal speech, no tremor PSYCHIATRIC: alert cooperative and oriented to person, place and time. Euthymic mood, makes good eye contact, language grossly intact, recent and remote memory grossly intact. Results & Data Results & Data ([facility]) Vital Signs (Past 12 Hours) Vital Signs Pulse Resp BP Pulse Ox 11/06/21 09:30 66 16 142/54 H 95 11/06/21 08:30 65 20 158/57 H 96 11/06/21 08:00 61 20 138/52 L 96 11/06/21 07:30 63 16 144/58 H 96 11/06/21 07:00 64 20 139/62 95 11/06/21 06:30 58 L 16 133/56 L 96 11/06/21 05:12 61 16 157/65 H 96 11/06/21 05:00 63 16 157/65 H 96 11/06/21 03:35 60 18 128/54 L 96 11/06/21 02:00 63 18 126/51 L 96 Laboratory Results Short CBC 11/05/21 11/06/21 Range/Units 12:57 04:53 WBC 6.07 6.41 (4.8-10.8) K/uL Hgb 12.9 11.7 L (12.0-16.0) g/dL Hct 40.9 36.6 L (37-47) % Plt Count 277 249 (130-400) K/uL BMP 11/05/21 11/06/21 12:57 04:53 Sodium 135 L 139 Potassium 3.9 3.8 Chloride 101 106 Carbon Dioxide 29 27 BUN 23 H 21 H Creatinine 1.27 H 1.13 Glucose 102 H 92 Calcium 8.8 8.5 Cardiac Enzymes 11/05/21 Range/Units 14:44 Troponin I < 0.015 (0-0.045) ng/ml Liver Function 11/05/21 Range/Units 12:57 Total Bilirubin 0.6 (0.2-1) mg/dl AST 24 (15-37) U/L ALT 32 (12-78) Alkaline Phosphatase 86 (45-117) U/L Albumin 3.4 (3.4-5.0) gm/dl Urine 11/05/21 Range/Units 14:02 Urine Color Yellow Urine Appearance Clear (Clear) Urine pH 7.5 (4.5-7.5) Ur Specific [place] 1.036 H (1.000-1.030) Urine Protein Negative (Negative) Urine Glucose (UA) Negative (Negative) Medications Administered Current Inpatient Medications Acetaminophen (Acetaminophen 325 Mg Tab) 650 mg PO Q4H PRN PRN Reason: Pain or Fever Stop: 12/05/21 21:31 Amlodipine Besylate (Amlodipine Besylate 5 Mg Tab) 10 mg PO DAILY ARIELLA Stop: 12/06/21 08:59 Last Admin: 11/06/21 08:51 Dose: 10 mg Documented by: Aspirin (Aspirin 81 Mg Ectab) 81 mg PO DAILY ARIELLA Stop: 12/06/21 08:59 Last Admin: 11/06/21 08:53 Dose: 81 mg Documented by: Citalopram Hydrobromide (Citalopram 20 Mg Tab) 10 mg PO HS ARIELLA Stop: 12/05/21 20:59 Last Admin: 11/05/21 23:04 Dose: 10 mg Documented by: Heparin Sodium (Porcine) (Heparin Sod 5,000 Unit/0.5 Ml Vial) 5,000 units SQ Q8 ARIELLA Stop: 12/05/21 21:59 Last Admin: 11/06/21 06:02 Dose: 5,000 units Documented by: Hydralazine HCl (Hydralazine Hcl 20 Mg/Ml Vial) 5 mg IV Q6H PRN PRN Reason: HTN Stop: 12/05/21 19:14 Last Admin: 11/05/21 19:25 Dose: 5 mg Documented by: Promethazine HCl 12.5 mg/ (Sodium Chloride) 50.5 mls @ 202 mls/hr IV Q6H PRN PRN Reason: Nausea And Vomiting Stop: 12/05/21 22:34 Levothyroxine Sodium (Levothyroxine Sodium 75 Mcg Tablet) 75 mcg PO DAILYBB [facility] Stop: 12/06/21 06:29 Last Admin: 11/06/21 06:06 Dose: 75 mcg Documented by: Losartan Potassium (Losartan Potassium 25 Mg Tab) 25 mg PO QAM [facility] Stop: 12/05/21 19:04 Last Admin: 11/06/21 08:52 Dose: 25 mg Documented by: Metoprolol Tartrate (Metoprolol Tartrate 25 Mg Tab) 12.5 mg PO BID [facility] Stop: 12/05/21 21:31 Last Admin: 11/06/21 08:53 Dose: 12.5 mg Documented by:
--- NOTE | 2021-11-06 12:58 | Electrocardiogram Report ---
Test Reason : Blood Pressure : / mmHG Vent. Rate : 071 BPM Atrial Rate : 071 BPM P-R Int : 148 ms QRS Dur : 082 ms QT Int : 414 ms P-R-T Axes : 044 013 013 degrees QTc Int : 449 ms Sinus rhythm with frequent Premature ventricular complexes Premature atrial complexes Otherwise normal ECG No previous ECGs available Confirmed by Leandro Caballero ([id number]) on 11/06/2021 12:58:40 PM Referred By: Confirmed By:Leandro Caballero
[2021-11-06] MEDS: CITALOPRAM 20 MG TAB PO SCH (21:30)
[2021-11-06] MEDS: ACETAMINOPHEN 325 MG TAB PO PRN (21:43)
[2021-11-07] MEDS: LEVOTHYROXINE SODIUM 75 MCG TABLET PO SCH (05:59)
[2021-11-07] MEDS: HEPARIN SOD 5,000 UNIT/0.5 ML VIAL SQ SCH ×3 (06:00→20:15)
[2021-11-07] MEDS: METOPROLOL TARTRATE 25 MG TAB PO SCH ×2 (09:28→20:15)
[2021-11-07] MEDS: amLODIPine BESYLATE 5 MG TAB PO SCH (09:29)
[2021-11-07] MEDS: ASPIRIN 81 MG ECTAB PO SCH (09:30)
[2021-11-07] MEDS: LOSARTAN POTASSIUM 25 MG TAB PO SCH (09:31)
[2021-11-07 09:39] VITALS: TEMP 97.9
[2021-11-07] MEDS ORDERED: ALPRAZolam 0.5 MG TABLET PO ONE (16:05)
[2021-11-07] MEDS: ACETAMINOPHEN 325 MG TAB PO PRN (17:40)
[2021-11-07] MEDS ORDERED: GADOBUTROL 65ML VIAL IV ONE (18:09)
--- NOTE | 2021-11-07 19:01 | Magnetic Resonance Report ---
MR brain wo/w con HISTORY: 86 years-old Female dizzy, rule out stroke, mass acute dizziness with strokelike symptoms COMPARISON: CTA head and neck 11/05/2021 TECHNIQUE: Multiplanar multisequence MRI of the brain was obtained both with and without use of 8.3 c c [employer] FINDINGS: Director Of Residential Services localizer images demonstrate no gross extracranial abnormality. There is no restricted diffusio n to suggest acute or subacute infarct. Midline structures appear unremarkable. No acute intracranial hemorrhage, midline shift, abnormal extra-axial collection, hydrocephalus or intracranial mass. Stud y is mildly motion degraded. Age-related involutional changes. Mild scattered T2/FLAIR hyperintense f oci noted throughout the white matter. There is no abnormal intracranial enhancement. Chronic lacunar infarcts of the right cerebellar hemisphere. Cerebral venous sinuses and major arterial flow voids a ppear patent. The 3.5 mm saccular aneurysm of the supraclinoid left internal carotid artery is not re adily seen. Mastoid air cells and paranasal sinuses are generally clear. Prior bilateral lens repair. IMPRESSION: 1. No acute intracranial abnormality. No acute or subacute infarct. 2. Age-related involutional changes with chronic microvascular ischemic disease. ACT 112: Negative or not required by law. The above report was generated using voice recognition software. It may contain grammatical, syntax o r spelling errors. Electronically signed by: Jesus Vazquez M.D. 11/07/2021 7:00 PM
[2021-11-07] MEDS: CITALOPRAM 20 MG TAB PO SCH (20:14)
[2021-11-08] MEDS: HEPARIN SOD 5,000 UNIT/0.5 ML VIAL SQ SCH ×2 (05:56→13:22)
[2021-11-08] MEDS: LEVOTHYROXINE SODIUM 75 MCG TABLET PO SCH (05:56)
[2021-11-08] MEDS: amLODIPine BESYLATE 5 MG TAB PO SCH (08:15)
[2021-11-08] MEDS: ASPIRIN 81 MG ECTAB PO SCH (08:15)
[2021-11-08] MEDS: METOPROLOL TARTRATE 25 MG TAB PO SCH (08:16)
[2021-11-08] MEDS: LOSARTAN POTASSIUM 25 MG TAB PO SCH (08:16)
--- NOTE | 2021-11-08 11:23 | XRay Report ---
XR chest 1V portable CLINICAL HISTORY: overnight hypoxia, cough TECHNIQUE: Single frontal radiograph of the chest was obtained. Comparison: Comparison is made to chest one view 11/05/2021 FINDINGS: No lines and tubes are seen. The cardiomediastinal silhouette is stable. The lungs are clear. No evid ence of pleural effusion or pneumothorax. Redemonstration of large hiatal hernia. IMPRESSION: No acute chest disease. ACT 112: Negative or not required by law. Electronically signed by: Naif James M.D. 11/08/2021 11:21 AM
--- NOTE | 2021-11-08 15:06 | Discharge Summary ---
Date of Service November 08, 2021 Admission HPI Per Admitting Provider 86-year-old female with PMH HTN, thyroid cancer s/p thyroidectomy, PVCs, and other problems listed below who presents to the ED for evaluation of dizziness and nausea. Patient is currently visiting from [place]. She has been staying with her daughter since August. Patient reports that over the past 1 week or so, she has had worsening dizziness. Dizziness seems to come on with standing and movement of her head. She also has developed nausea associated with it. Reports that she has been having trouble ambulating. No syncopal event. Denies chest pain, palpitations, shortness of breath. No other recent illnesses, fevers, chills. Denies abdominal pain, vomiting, diarrhea. No urinary symptoms. In the ED, patient is found to be significantly hypertensive with BP 209/82. Labs are unremarkable. Patient was given her home dose of amlodipine 10 mg and IV hydralazine 10 mg, meclizine, IVF. Admission Exam Per Admitting Provider Constitutional: WD/WN, vitals as above Eyes: PERRL, conjunctivae normal, anicteric sclerae ENMT: external ear and nose normal, oropharynx normal Respiratory: normal respiratory effort, lungs clear to auscultation Cardiovascular: Rate/Rhythm: regular rate and regular rhythm Vessels: normal peripheral pulses Extremities: no edema Gastrointestinal (Abdomen): normal bowel sounds, soft, nontender, no hep atosplenomegaly Musculoskeletal: no cyanosis or clubbing, extremities motor strength 5/5 Skin: no rashes, warm and dry Neurologic: PERRL, EOMI, accommodation nl, no face palsy, no dysarthria Psychiatric: A+Ox3, euthymic affect Principal Diagnosis Hypertensive urgency Vertigo Anxiety Acute Bronchitis Discharge Exam CONSTITUTIONAL: obese, vitals as above, generally well-appearing, NAD EYES: pupils are round and equal bilaterally, normal conjunctivae, no scleral icterus ENT: external ear and nose normal NECK: trachea midline, MMM RESPIRATORY: clear to auscultation bilaterally, no crackles, rales or wheezes, normal respiratory effort CARDIOVASCULAR: regular rate and rhythm, S1 and 2 heard without murmurs, gallops or rubs, no JVD, no peripheral edema, GASTROINTESTINAL: soft, nontender, ND, no guarding MUSCULOSKELETAL: strength 5/5 throughout, head is normocephalic and atraumatic, SKIN: warm and dry, NEUROLOGIC: CN 2-12 grossly intact, no sensory deficit, normal cognition, normal speech, no tremor, no gross focal deficit. PSYCHIATRIC: alert cooperative and oriented to person, place and time. t. Discharge Data Allergies Allergy/AdvReac Type Severity Reaction Status Date / Time No Known Allergies Allergy Unverified 11/05/21 15:31 Consultations 11/05/21 17:51 ED Decision to Admit Stat 11/06/21 12:05 Consult Neurology Routine Ordered Studies Laboratory Results WBC 6.41 K/uL (4.8-10.8) 11/06/21 04:53 RBC 3.87 M/uL (4.2-5.4) L 11/06/21 04:53 Hgb 11.7 g/dL (12.0-16.0) L 11/06/21 04:53 Hct 36.6 % (37-47) L 11/06/21 04:53 MCV 94.6 fL (80-100) 11/06/21 04:53 MCH 30.2 pg (25-34) 11/06/21 04:53 MCHC 32.0 g/dL (32-36) 11/06/21 04:53 RDW Std Deviation 47.1 fL (36.4-46.3) H 11/06/21 04:53 RDW Coeff of Nathan 13.7 % (11.5-14.5) 11/06/21 04:53 Plt Count 249 K/uL (130-400) 11/06/21 04:53 MPV 11.0 fL (7.4-10.4) H 11/06/21 04:53 Immature Gran % (Auto) 0.2 % 11/05/21 12:57 Neut % (Auto) 62.8 % 11/05/21 12:57 Lymph % (Auto) 27.5 % 11/05/21 12:57 [place] % (Auto) 7.6 % 11/05/21 12:57 Eos % (Auto) 1.6 % 11/05/21 12:57 Baso % (Auto) 0.3 % 11/05/21 12:57 Neut # (Auto) 3.81 K/uL (1.4-6.5) 11/05/21 12:57 Lymph # (Auto) 1.67 K/uL (1.2-3.4) 11/05/21 12:57 [place] # (Auto) 0.46 K/uL (0.11-0.59) 11/05/21 12:57 Eos # (Auto) 0.10 K/uL (0-0.5) 11/05/21 12:57 Baso # (Auto) 0.02 K/uL (0-0.2) 11/05/21 12:57 Immature Gran # (Auto) 0.01 K/uL (0.00-0.02) 11/05/21 12:57 Sodium 139 mmol/L (136-145) 11/06/21 04:53 Potassium 3.8 mmol/L (3.5-5.1) 11/06/21 04:53 Chloride 106 mmol/L (98-107) 11/06/21 04:53 Carbon Dioxide 27 mmol/L (21-32) 11/06/21 04:53 Anion Gap 6.0 (3-11) 11/06/21 04:53 BUN 21 mg/dl (7-18) H 11/06/21 04:53 Creatinine 1.13 mg/dl (0.6-1.2) 11/06/21 04:53 Est Cr Clr Drug Dosing 39.5 ml/min 11/06/21 04:53 Est GFR ( Amer) 51.3 ml/min 11/06/21 04:53 Est GFR (Non-Af Amer) 44.3 ml/min 11/06/21 04:53 BUN/Creatinine Ratio 18.7 (10-20) 11/06/21 04:53 Glucose 92 mg/dl (70-99) 11/06/21 04:53 Calcium 8.5 mg/dl (8.5-10.1) 11/06/21 04:53 Total Bilirubin 0.6 mg/dl (0.2-1) 11/05/21 12:57 AST 24 U/L (15-37) 11/05/21 12:57 ALT 32 (12-78) 11/05/21 12:57 Alkaline Phosphatase 86 U/L (45-117) 11/05/21 12:57 Troponin I < 0.015 ng/ml (0-0.045) 11/05/21 14:44 Total Protein 8.4 gm/dl (6.4-8.2) H 11/05/21 12:57 Albumin 3.4 gm/dl (3.4-5.0) 11/05/21 12:57 Globulin 5.0 gm/dl (2.5-4.0) H 11/05/21 12:57 Albumin/Globulin Ratio 0.7 (0.9-2) L 11/05/21 12:57 Urine Color Yellow 11/05/21 14:02 Urine Appearance Clear (Clear) 11/05/21 14:02 Urine pH 7.5 (4.5-7.5) 11/05/21 14:02 Ur Specific [place] 1.036 (1.000-1.030) H 11/05/21 14:02 Urine Protein Negative (Negative) 11/05/21 14:02 Urine Glucose (UA) Negative (Negative) 11/05/21 14:02 Urine Ketones Negative (Negative) 11/05/21 14:02 Urine Blood Negative (Negative) 11/05/21 14:02 Urine Nitrite Negative (Negative) 11/05/21 14:02 Urine Bilirubin Negative (Negative) 11/05/21 14:02 Urine Urobilinogen Negative (Negative) 11/05/21 14:02 Ur Leukocyte Esterase Negative (Negative) 11/05/21 14:02 SARS-CoV-2, RNA, NAAT NEGATIVE (NEGATIVE) 11/05/21 19:15 Impressions Head CTA 11/05/21 14:06 CT ANGIOGRAM OF THE BRAIN COMBO; CT ANGIOGRAM OF THE NECK CLINICAL HISTORY: Headache. Dizziness. COMPARISON STUDY: No priors. TECHNIQUE: Unenhanced axial CT scan of the brain is performed. Subsequently, following the IV administration of 117 of Optiray 320, CT angiogram of the head and neck was performed from the aortic arch to the vertex. Images are reviewed in the axial, sagittal, and coronal planes. 3-D MIPS images are created and assessed. IV contrast was administered without complication. All measurements were calculated based on NASCET criteria. A dose lowering technique was utilized adhering to the principles of ALARA. CT DOSE: 1071.35 mGy.cm FINDINGS: Brain parenchyma: There is age-related involutional change noting [id number] subcortical and periventricular microangiopathic disease. There is no hemorrhage, mass effect, or evidence of acute territorial ischemia by CT criteria. There is no evidence of enhancing mass lesion on the angiogram phase images. A small chronic lacunar infarct is noted in the right cerebellar hemisphere. The ventricles, sulci, and cisterns are prominent secondary to involutional change. Blackburn-white matter differentiation is preserved. No extra- axial fluid collection is seen. Thoracic aorta: There is atherosclerotic calcification of the thoracic aorta. Visualized portions of the thoracic aorta are normal in caliber. The aortic arch demonstrates bovine variant anatomy. Right carotid arterial system: The right common carotid artery is widely patent. Atherosclerotic plaque in the carotid bulb causes approximately 50% luminal narrowing at the origin of the right internal carotid artery. The remainder of the internal carotid artery is widely patent, as is the external carotid artery. Left carotid arterial system: The left common carotid artery is widely patent, as are the left internal and external carotid arteries. Calcified plaque is noted in the carotid bulb. Vertebral arteries: The vertebral arteries are widely patent bilaterally noting left-sided dominance. Subclavian arteries: Widely patent bilaterally. Intracranial vasculature: There is atherosclerotic calcification of the cavernous carotid and vertebral arteries. The internal carotid arteries are patent at the skull base, as are the anterior and middle cerebral arteries bilaterally. The vertebrobasilar system and posterior cerebral arteries are widely patent. The left vertebral artery is dominant. 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 No additional aneurysm is seen. No high-grade stenosis or focal vessel cut off is identified Throughout the intracranial circulation. Jugular veins: Patent bilaterally. Dural sinuses: Patent. Lung apices: Partially visualized upper lobe lung parenchyma appears clear. Soft tissues: The visualized pharyngeal soft tissues are normal in appearance noting angiographic phase technique. The oropharyngeal airway appears widely patent. The thyroid gland is atrophic. The salivary glands are normal in appearance. No cervical lymphadenopathy is seen. Skeletal structures: The skeletal structures are osteopenic. The calvarium appears intact. The cervical spine is maintained noting multilevel spondylosis. No lytic or blastic lesion is seen. Orbits: The bony orbits are intact. Orbital contents are normal as visualized. Sinuses and mastoids: There is mild mucosal thickening in the left frontal sinus. The remaining paranasal sinuses are clear. The mastoid air cells are well pneumatized. IMPRESSION: 1. There is no hemorrhage, mass effect, or evidence of acute territorial ischemia by CT criteria. 2. 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 3. Otherwise unremarkable CT angiogram of the brain. 4. There is approximately 50% focal stenosis at the origin of the right internal carotid artery. 4. Otherwise unremarkable CT angiogram of the neck. ACT 112: Negative or not required by law. Electronically signed by: Hill Gonzalez M.D. 11/05/2021 3:19 PM Neck CTA 11/05/21 14:06 CT ANGIOGRAM OF THE BRAIN COMBO; CT ANGIOGRAM OF THE NECK CLINICAL HISTORY: Headache. Dizziness. COMPARISON STUDY: No priors. TECHNIQUE: Unenhanced axial CT scan of the brain is performed. Subsequently, following the IV administration of 117 of Optiray 320, CT angiogram of the head and neck was performed from the aortic arch to the vertex. Images are reviewed in the axial, sagittal, and coronal planes. 3-D MIPS images are created and assessed. IV contrast was administered without complication. All measurements were calculated based on NASCET criteria. A dose lowering technique was utilized adhering to the principles of ALARA. CT DOSE: 1071.35 mGy.cm FINDINGS: Brain parenchyma: There is age-related involutional change noting [id number] subcortical and periventricular microangiopathic disease. There is no hemorrhage, mass effect, or evidence of acute territorial ischemia by CT criteria. There is no evidence of enhancing mass lesion on the angiogram phase images. A small chronic lacunar infarct is noted in the right cerebellar hemisphere. The ventricles, sulci, and cisterns are prominent secondary to involutional change. Blackburn-white matter differentiation is preserved. No extra- axial fluid collection is seen. Thoracic aorta: There is atherosclerotic calcification of the thoracic aorta. Visualized portions of the thoracic aorta are normal in caliber. The aortic arch demonstrates bovine variant anatomy. Right carotid arterial system: The right common carotid artery is widely patent. Atherosclerotic plaque in the carotid bulb causes approximately 50% luminal narrowing at the origin of the right internal carotid artery. The remainder of the internal carotid artery is widely patent, as is the external carotid artery. Left carotid arterial system: The left common carotid artery is widely patent, as are the left internal and external carotid arteries. Calcified plaque is noted in the carotid bulb. Vertebral arteries: The vertebral arteries are widely patent bilaterally noting left-sided dominance. Subclavian arteries: Widely patent bilaterally. Intracranial vasculature: There is atherosclerotic calcification of the cavernous carotid and vertebral arteries. The internal carotid arteries are patent at the skull base, as are the anterior and middle cerebral arteries bilaterally. The vertebrobasilar system and posterior cerebral arteries are widely patent. The left vertebral artery is dominant. 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 No additional aneurysm is seen. No high-grade stenosis or focal vessel cut off is identified Throughout the intracranial circulation. Jugular veins: Patent bilaterally. Dural sinuses: Patent. Lung apices: Partially visualized upper lobe lung parenchyma appears clear. Soft tissues: The visualized pharyngeal soft tissues are normal in appearance noting angiographic phase technique. The oropharyngeal airway appears widely patent. The thyroid gland is atrophic. The salivary glands are normal in appearance. No cervical lymphadenopathy is seen. Skeletal structures: The skeletal structures are osteopenic. The calvarium appears intact. The cervical spine is maintained noting multilevel spondylosis. No lytic or blastic lesion is seen. Orbits: The bony orbits are intact. Orbital contents are normal as visualized. Sinuses and mastoids: There is mild mucosal thickening in the left frontal sinus. The remaining paranasal sinuses are clear. The mastoid air cells are well pneumatized. IMPRESSION: 1. There is no hemorrhage, mass effect, or evidence of acute territorial ischemia by CT criteria. 2. 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 3. Otherwise unremarkable CT angiogram of the brain. 4. There is approximately 50% focal stenosis at the origin of the right internal carotid artery. 4. Otherwise unremarkable CT angiogram of the neck. ACT 112: Negative or not required by law. Electronically signed by: Hill Gonzalez M.D. 11/05/2021 3:19 PM Brain MRI 11/07/21 16:04 MR brain wo/w con HISTORY: 86 years-old Female dizzy, rule out stroke, mass acute dizziness with strokelike symptoms COMPARISON: CTA head and neck 11/05/2021 TECHNIQUE: Multiplanar multisequence MRI of the brain was obtained both with and without use of 8.3 cc Gadavist FINDINGS: Microfiche Camera Operator localizer images demonstrate no gross extracranial abnormality. There is no restricted diffusion to suggest acute or subacute infarct. Midline structures appear unremarkable. No acute intracranial hemorrhage, midline shift, abnormal extra-axial collection, hydrocephalus or intracranial mass. Study is mildly motion degraded. Age-related involutional changes. Mild scattered T2/FLAIR hyperintense foci noted throughout the white matter. There is no abnormal intracranial enhancement. Chronic lacunar infarcts of the right cerebellar hem isphere. Cerebral venous sinuses and major arterial flow voids appear patent. The 3.5 mm saccular aneurysm of the supraclinoid left internal carotid artery is not readily seen. Mastoid air cells and paranasal sinuses are generally clear. Prior bilateral lens repair. IMPRESSION: 1. No acute intracranial abnormality. No acute or subacute infarct. 2. Age-related involutional changes with chronic microvascular ischemic disease. ACT 112: Negative or not required by law. The above report was generated using voice recognition software. It may contain grammatical, syntax or spelling errors. Electronically signed by: Jesus Vazquez M.D. 11/07/2021 7:00 PM Chest X-Ray 11/08/21 10:43 XR chest 1V portable CLINICAL HISTORY: overnight hypoxia, cough TECHNIQUE: Single frontal radiograph of the chest was obtained. Comparison: Comparison is made to chest one view 11/05/2021 FINDINGS: No lines and tubes are seen. The cardiomediastinal silhouette is stable. The lungs are clear. No evidence of pleural effusion or pneumothorax. Redemonstration of large hiatal hernia. IMPRESSION: No acute chest disease. ACT 112: Negative or not required by law. Electronically signed by: Naif James M.D. 11/08/2021 11:21 AM Hospital Course (1) Hypertensive urgency: BP improved into the normal range with hydralazine and addition of losartan. There was a significant improvement in symptoms after her blood pressure was controlled. Workup included a CTA head and neck revealing 50% focal stenosis at the origin of the right internal carotid artery. 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 Neurology was consulted and recommended physical therapy and MRI which was performed and negative for any mass, stroke or other acute intracranial process. She was found to have microvascular diseas e. In the physical therapy session cervical range of motion was normal in all major planes with no change in symptoms. She underwent a modified Bowman-Hallpike test which was essentially within normal limits for left-sided testing with no vertigo and no observed nystagmus. However right-sided testing produced marked dizziness/vertigo with some nystagmus but patient was closing her eyes due to the vertigo despite cues to keep her eyes open. (2) Anxiety: She is on citalopram but states that with recent life stressors to her pills may not be "strong enough." Follow-up with primary care to discuss additional strategies for controlling anxiety better. (3) Acute bronchitis: Patient reports a new progressive cough throughout this admission. Chest x-ray negative. Z-Colt provided at discharge. (4) Vertigo: Likely BPPV, positive Alejandro-Hallpike on the right however patient did not keep her eyes open to confirm nystagmus. She reports history of vertigo in the past. Central causes of vertigo ruled out. Follow-up with neurology as outpatient. (5) Carotid aneurysm, left: Cont outpatient monitoring. Overnight, patient reportedly required 2 L of oxygen. She never felt short of breath and reports this recent cough mildly productive as noted above. A two-step test was performed by respiratory ensuring she did not need any supplemental oxygen prior to discharge. Further work-up of her nighttime oxygen needs may be pursued with an outpatient sleep study or overnight pulse oximetry test. Would defer to primary care doctor to arrange this as needed. No known structural lung disease. At time of discharge she was hemodynamically stable and afebrile and tolerating p.o. She was reporting an improvement overall in her symptoms since admission and was eager to return home. She was discharged in stable condition with her daughter with close primary care follow-up recommended. Neurology appointment for follow-up was set up prior to her discharge Total Time Total Time Spent Total Time Spent (In Minutes): 60 Discharge Plan Discharge Items Patient Disposition: Home - Self-Care Reason For Visit: DIZZINESS, NAUSEA, GENERALIZED PAIN Discharge Diagnosis: Hypertensive urgency Vertigo Anxiety acute bronchitis Condition on Discharge: Good Activity: Resume your previous activity Non-emergency contact: Primary Care Provider Call non-emergency contact if: you have any medication questions and your symptoms worsen Follow-up/Referrals: Yisel Li PA-C [Outside Practitioners] - (Date & Time 11/09/2021 1:40 PM Yisel Li PA-C Family Medicine [address] [place] [address] ) Aisha Boyer PA-C [Physician Business Intelligence Analyst] - (Date & Time 11/29/2021 11:20 AM Provider Aisha Boyer PA-C Neurology [address] , [place] [address] ) Diet: Heart Healthy Addtl Attending Provider Instructions: Ms. Mora, You were admitted to the hospital for elevated blood pressure, called hypertensive urgency. As a result, you have been placed on an additional blood pressure medicine called losartan. Please stay on this medication until you see your primary care doctor who may want to adjust this. You will need blood work in 2 weeks time to ensure your kidney function and electrolytes are staying stable on this medicine. Your primary care doctor can order this for you when you follow-up with them. At this visit will also be important to discuss your anxiety which appears to be somewhat uncontrolled. This may be contributing to your dizziness symptoms. You have had an MRI that ruled out a stroke and your symptoms appear to improve with control of your blood pressure. You have a follow-up with neurology to continue monitoring your symptom of dizziness. As you have had a new cough a repeat chest x-ray was performed and was clear of any pneumonia. You have been given a short course of antibiotics to take. However, symptoms should be monitored by her primary care doctor on follow-up. You were found to have an incidental 3.5 mm aneurysm in the left carotid artery. This may need to be monitored and a referral to vascular surgery can be placed by your primary care doctor on follow-up. It was a pleasure taking care of you! Please call if you have any questions or problems. You can reach a [facility] hospitalist on duty at [facility] 24 hours a day by calling [phone]. Take care of yourself. Isabelle Murray, DO [facility] Hospitalist Pending Studies at Discharge: No Stand-Alone Forms: My [facility] Medications and DC Order Prescriptions: New losartan 50 mg tablet 50 mg PO DAILY Qty: 30 RF: 0 azithromycin 250 mg tablet See Rx Instructions .ROUTE .COMPLEX Qty: 6 RF: 0 Continued citalopram 10 mg tablet 10 mg PO DAILY RF: 0 aspirin 81 mg Tablet,Delayed Release (Dr/Ec) 81 mg PO DAILY RF: 0 acetaminophen [Tylenol Extra Strength] 500 mg Tablet 500 mg PO HS RF: 0 levothyroxine [Euthyrox] 75 mcg tablet 75 mcg PO DAILY RF: 0 amlodipine 10 mg tablet 10 mg PO DAILY RF: 0 calcium carbonate-vitamin D2 600 mg calcium- 200 unit Tablet 4 tab PO DAILY RF: 0 metoprolol tartrate 25 mg tablet 12.5 mg PO BID RF: 0 cholecalciferol (vitamin D3) [Vitamin D3] 125 mcg (5,000 unit) Tablet 125 mcg PO DAILY RF: 0 Discharge Orders: Discharge Order (Routine); Ordered 11/08/21 Ordered By: Isabelle Murray Admission Data Admit Date/Time: 11/08/21 08:32 Attending Provider: Isabelle Murray Admit Provider: Paddy Whyte Primary Care Provider: PCP,NO Other Providers: Paddy Whyte ; Bladimir Ny ; [facility]
[2021-11-08 15:12] VITALS: BP 146/67; PULSE 57; O2SAT 98
--- NOTE | 2021-11-08 15:32 | Hospitalist Progress Note ---
Date of Service November 07, 2021 Patient was seen on 11/07, however, this note retrospectively documented that encounter. Assessment & Plan (1) Hypertensive urgency: Plan: BP improved into the normal range with hydralazine and addition of losartan. There was a significant improvement in symptoms after her blood pressure was controlled. Workup included a CTA head and neck revealing 50% focal stenosis at the origin of the right internal carotid artery. 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 Neurology was consulted and recommended physical therapy and MRI which was performed and negative for any mass, stroke or other acute intracranial process. 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 In the physical therapy session cervical range of motion was normal in all major planes with no change in symptoms. She underwent a modified Lawrence-Hallpike test which was essentially within normal limits for left-sided testing with no vertigo and no observed nystagmus. However right-sided testing produced marked dizziness/vertigo with some nystagmus but patient was closing her eyes due to the vertigo despite cues to keep her eyes open. (2) Vertigo: Plan: Likely BPPV, positive Alejandro-Hallpike on the right however patient did not keep her eyes open to confirm nystagmus. She reports history of vertigo in the past. MRI brain pending today. (3) Anxiety: Plan: She is on citalopram but states that with recent life stressors to her pills may not be "strong enough." Follow-up with primary care to discuss additional strategies for controlling anxiety better. (4) Carotid aneurysm, left: Plan: Cont outpatient monitoring. (5) DVT prophylaxis: Plan: Heparin Full Code Dispo-to home in am pending MRI results this evening. Isabelle Murray DO [facility] Hospitalist Admission and Anticipated Discharge Date Admission Date: November 08, 2021 Subjective 86 yo F presents with acute dizziness that began a few days ago. She reports feeling better but still has some persistent dizziness. Modified Lawrence-Hallpike on the right was positive however patient did not keep her eyes open to document vertigo. She worked with physical therapy who has cleared her for home, however, we discussed expediting the MRI of the brain which was recommended by neurology. After some consideration she decided to go forward with that which was ordered. Otherwise she denies any chest pain, shortness of breath or other issues today. Tolerating p.o. Denies any headache or visual changes Review of Systems Review of Systems: All systems reviewed negative except as indicated above Physical Exam Physical Exam: CONSTITUTIONAL: obese, vitals as above, generally well- appearing, NAD EYES: pupils are round and equal bilaterally, normal conjunctivae, no scleral icterus ENT: external ear and nose normal NECK: trachea midline, MMM RESPIRATORY: clear to auscultation bilaterally, no crackles, rales or wheezes, normal respiratory effort CARDIOVASCULAR: regular rate and rhythm, S1 and 2 heard without murmurs, delgado ps or rubs, no JVD, no peripheral edema, GASTROINTESTINAL: soft, nontender, ND, no guarding MUSCULOSKELETAL: strength 5/5 throughout, head is normocephalic and atraumatic, SKIN: warm and dry, NEUROLOGIC: CN 2-12 grossly intact, no sensory deficit, normal cognition, normal speech, no tremor, no gross focal deficit. PSYCHIATRIC: alert cooperative and oriented to person, place and time. Results & Data Results & Data ([facility]) Vital Signs (Past 12 Hours) Vital Signs Temp Pulse Pulse Pulse Pulse Pulse Resp 11/08/21 15:10 36.6 C 57 L 18 11/08/21 10:43 73 92 H 59 L 11/08/21 08:06 60 18 11/08/21 08:04 69 15 11/08/21 07:00 65 3 L 11/08/21 06:34 57 L 18 11/08/21 06:00 53 L 14 11/08/21 05:45 57 L 7 L 11/08/21 05:00 57 L 15 11/08/21 04:00 53 L 14 Resp Resp Resp BP BP Pulse Ox Pulse Ox 11/08/21 15:10 146/67 H 98 11/08/21 10:43 20 18 18 95 11/08/21 08:06 150/76 H 11/08/21 08:04 11/08/21 07:00 98 11/08/21 06:34 146/67 H 99 11/08/21 06:00 96 11/08/21 05:45 146/67 H 98 11/08/21 05:00 98 11/08/21 04:00 97 Pulse Ox Pulse Ox 11/08/21 15:10 11/08/21 10:43 95 93 11/08/21 08:06 11/08/21 08:04 11/08/21 07:00 11/08/21 06:34 11/08/21 06:00 11/08/21 05:45 11/08/21 05:00 11/08/21 04:00
== END 2021-11-08 15:30 | disposition home or self-care (01) | DRG 305 ==
LOC: ED 11:40 → EDINP 11:40 → SUATTDRO 18:05 → EDINP 21:30

== ENCOUNTER 2024-01-21 07:32 | Observation (INO) ==
--- NOTE | 2023-11-29 08:03 | History & Physical Report ---
Date of Service November 29, 2023 date of surgery: 12/24/23 Procedure: Right Total Knee Arthroplasty Surgeon: Alan Cleary, DO Assessment & Plan (1) Arthritis of right knee: Plan: Further care discussed with patient and at this point in time has failed cons ervative measures and after discussion with Dr Cleary, she would like to proceed with a right total knee replacement. patient lives alone and will require SNF vs rehab. DVT prophylaxiswith TEDs, SCDs and will also place on aspirin 81 mg p.o. b.i.d. for a month postop. Patient will have follow up appointment in our office two weeks post op for staple/suture removal and re-evaluation. Patient otherwise has no other questions or concerns. The risks and benefits have been discussed including, but not limited to, risk of infection, nerve injury, stiffness, loss of motion, failure to improve, etc. Reasonable outcomes and options of treatment were discussed. An explanation of appropriate alternatives to the procedure that may be advantageous were discussed and their risks and benefits, as well as the risks and benefits of not proceeding with treatment. I offered to answer any additional inquiries concerning the treatment involved. All the patient's questions were answered. The patient is agreeable, understanding of the treatment plan and alternatives, and wishes to proceed with the treatment plan. Please note the above document was generated using voice recognition software. It may contain grammatical, syntax or spelling errors. Any formal questions or concerns about the content, text or information contained within the body of this dictation should be directly addressed to the provider for clarification History of Present Illness Chief Complaint: Right knee pain Primary Care Provider: ANGELIQUE Maki Ms Mora is an 88-year-old female who presented for preop prior to upcoming right total knee arthroplasty. She has a longstanding history of right knee pain which gradually worsened and is now affecting her daily activities. She rates her current pain as a 6 out of 10. She undergone previous injections including viscosupplementation with no improvement, she is also tried oral anti- inflammatories and Tylenol as well. At this point time she has failed conservative measures and wishes to proceed with a right total knee arthroplasty Allergies Allergy/AdvReac Type Severity Reaction Status Date / Time No Known Allergies Allergy Unverified 09/05/23 14:28 Home Medications Medication Instructions Recorded Confirmed Type acetaminophen 500 mg tablet 500 mg PO HS 11/05/21 09/05/23 History (Tylenol Extra Strength) cholecalciferol (vitamin D3) 125 125 mcg PO DAILY 11/05/21 09/05/23 History mcg (5,000 unit) tablet (Vitamin D3) citalopram 10 mg tablet 10 mg PO DAILY 11/05/21 09/05/23 History losartan 50 mg tablet 50 mg PO DAILY #30 tabs 11/08/21 09/05/23 Rx levothyroxine 100 mcg capsule 100 mcg PO DAILY 01/14/23 09/05/23 History calcium carbonate 600 mg calcium 1,800 mg PO DAILY 09/05/23 09/05/23 History (1,500 mg) tablet losartan 50 mg-hydrochlorothiazide 0.5 tab PO .COMPLEX 09/05/23 09/05/23 History 12.5 mg tablet metoprolol succinate 50 mg 50 mg PO BID 09/05/23 History tablet,extended release 24 hr Past Med/Surg History Medical History DVT prophylaxis Dizziness DVT prophylaxis Hypertensive urgency Thyroid cancer History of CVA (cerebrovascular accident) Post-surgical hypothyroidism HTN (hypertension) PVC (premature ventricular contraction) Surgical History H/O thyroidectomy Family History Mother Hypertension Father Hypertension Social History Smoking Status: Never smoker Tobacco Type: Cigarettes Hx Alcohol Use: No Hx Substance Use: No Preferred Language: Indian Communication Ability: Effective Piped Pocket Machine Operator Required: No Beliefs That Will Affect Care: None Current Living Situation: Alone Feels Safe at Home: Yes Assistive Devices: None Review of Systems Review of Systems: All systems reviewed & are unremarkable except as noted in HPI & below Constitutional: no fever, no chills and no sweats Respiratory: no cough and no dyspnea Cardiovascular: no chest pain, no dyspnea and no orthopnea Gastrointestinal: no abdominal pain, no nausea and no vomiting Musculoskeletal: as per Subjective / HPI Physical Exam Constitutional: WD/WN, vitals as above no acute distress Respiratory: normal respiratory effort, lungs clear to auscultation no respiratory distress, no labored breathing and does not use accessory muscles Cardiovascular: RRR, no murmur, no edema Gastrointestinal (Abdomen): normal bowel sounds, soft, nontender, no hepatosplenomegaly Musculoskeletal: Knee: + knee abnormal to inspection (RIGHT KNEE), + effusion (+1 effusion), + limited ROM of knee (ROM 0/3/110), + knee ROM with crepitation, + joint line tenderness (medial joint line) and + Nick's sign positive; no deformity, no skin erythema, no ecchymosis, no valgus laxity, no varus laxity, anterior drawer test negative, Yolanda's sign negative and pivot shift test negative Results & Data Results & Data Diagnostic Findings Right Knee X-ray: Right knee series showing advanced degenerative changes to the right knee, tricompartmental joint space narrowing, osteophyte formation and subchondral sclerosis noted. no acute bony pathology noted.
--- NOTE | 2023-12-04 16:14 | PAT Medication Instructions ---
Medication Instructions Date of Service December 04, 2023 Home Medications acetaminophen 500 mg tablet (Tylenol Extra Strength) 500 mg PO HS cholecalciferol (vitamin D3) 125 mcg (5,000 unit) tablet (Vitamin D3) 125 mcg PO QAM citalopram 10 mg tablet 20 mg PO HS levothyroxine 100 mcg capsule 100 mcg PO QAM calcium carbonate 600 mg calcium (1,500 mg) tablet 600 mg PO QAM metoprolol succinate 50 mg tablet,extended release 24 hr 50 mg PO BID biotin 1 tab PO DAILY losartan 100 mg-hydrochlorothiazide 12.5 mg tablet 0.5 tab PO BID STOP taking 2 weeks before surgery (or as soon as possible if surgery is within 2 weeks) biotin 1 tab PO DAILY DO NOT take the morning of surgery cholecalciferol (vitamin D3) 125 mcg (5,000 unit) tablet (Vitamin D3) 125 mcg PO QAM calcium carbonate 600 mg calcium (1,500 mg) tablet 600 mg PO QAM losartan 100 mg-hydrochlorothiazide 12.5 mg tablet 0.5 tab PO BID Take morning of surgery With a small sip of water, OTHERWISE NOTHING TO EAT OR DRINK AFTER MIDNIGHT: levothyroxine 100 mcg capsule 100 mcg PO QAM metoprolol succinate 50 mg tablet,extended release 24 hr 50 mg PO BID Take evening before surgery acetaminophen 500 mg tablet (Tylenol Extra Strength) 500 mg PO HS citalopram 10 mg tablet 20 mg PO HS metoprolol succinate 50 mg tablet,extended release 24 hr 50 mg PO BID losartan 100 mg-hydrochlorothiazide 12.5 mg tablet 0.5 tab PO BID Other Notes If you have any questions please call us at [phone] or [phone] or [phone] or [phone]
--- NOTE | 2023-12-09 10:15 | Anesthesiology Consultation ---
Date of Service December 09, 2023 Assessment & Plan (1) Encounter for pre-operative examination: - awaiting medical clearance, cardiology advised Dr. Santiago is out of office until 12/16/23. Optimization form to be faxed to PCP Dr. Jenifer Linn with [facility] in [place], [place]. - Case discussed in detail with Dr. Escobedo who advised patient have PCP clearance prior to surgery given HTN and age prior to surgery. Workload note also sent to [facility] cardiology for continuity of care. Surgeon's office made aware. - cardiology office visit 09/05/23 [place]: "...Dyspnea on exertion: Currently she believes her exertional ability is stable. Coronary disease: By history she had a catheterization showing coronary artery disease somewhere around 2011 in [place]. Although her coronary artery disease may not have progressed it would be advisable for her to take aspirin and atorvastatin as she had been on before, but she is no longer taking these. Hypertension: Her blood pressure is elevated, she is now off of amlodipine and only on losartan and metoprolol. I have not altered this regimen...Cryptogenic stroke: By history she has stroke identified and described to her as being an old stroke, a right hemispheric site. This was quite a few years ago and to my knowledge has not recurred, but a cause was not identified. Her current description of palpitations is worrisome and that it could represent atrial fibrillation. I am therefore going to use a 3-day monitor which she believes should record the symptoms. If it is atrial fibrillation she would need to be on an anticoagulant. She had been treated with aspirin and atorvastatin, which may help prevent further strokes if they are atherosclerotic, but she is no longer on these..." Chart Review Chart Review: Pending: Refer to Additional Notes / Consult section and Patient seen in Pre Admission Testing Teaching & Discussion Pre-Anesthesia Teaching/Discussion Notes: Instructed NPO after midnight before surgery, except medications with 15 cc of water. Medication instructions provided according to the PAT guidelines. History Surgery Operation Date: 12/24/23 07:15 Proposed Procedures p Right Total Knee Arthroplasty(Right) - Alan Cleary DO Height/Weight Height: 5 ft 6 in Weight: 85.7 kg Allergies Allergy/AdvReac Type Severity Reaction Status Date / Time No Known Allergies Allergy Verified 12/04/23 15:15 Medications Home Medications Medication Instructions Recorded Confirmed Last Taken acetaminophen 500 mg tablet 500 mg PO HS 11/05/21 12/04/23 Unknown (Tylenol Extra Strength) cholecalciferol (vitamin D3) 125 125 mcg PO QAM 11/05/21 12/04/23 Unknown mcg (5,000 unit) tablet (Vitamin D3) citalopram 10 mg tablet 20 mg PO HS 11/05/21 12/04/23 Unknown levothyroxine 100 mcg capsule 100 mcg PO QAM 01/14/23 12/04/23 Unknown calcium carbonate 600 mg calcium 600 mg PO QAM 09/05/23 12/04/23 Unknown (1,500 mg) tablet metoprolol succinate 50 mg 50 mg PO BID 09/05/23 12/04/23 Unknown tablet,extended release 24 hr biotin 1 tab PO DAILY 12/04/23 12/04/23 Unknown losartan 100 0.5 tab PO BID 12/04/23 12/04/23 Unknown mg-hydrochlorothiazide 12.5 mg tablet Past Medical History Medical History (Updated 12/09/23 @ 10:25 by Valery Spencer PA-C) Anxiety CAD (coronary artery disease) 2011 cath-not requiring stents per pt/[facility] cardio office note Carotid aneurysm, left DVT (deep venous thrombosis) right foot-in setting of trauma-7-8 yrs ago GERD (gastroesophageal reflux disease) occasional-diet controlled Hiatal hernia History of CVA (cerebrovascular accident) "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 and told her she had a stroke in the past as it was seen in imaging at [facility]">no residual effects HTN (hypertension) controlled, stable per pt Post-surgical hypothyroidism PVC (premature ventricular contraction) dx at "home in [place], [place]"; f/[place] dr. [place] [facility] [place] SOB (shortness of breath) on exertion chronic, denies change or worsening Thyroid cancer dx in her late 70's, in [place], [place]; sx tx only Patient denies h/o seizures, heart attack, heart failure, DM, or blood transfusions. Exercise / Class Metabolic Activity III < 4 Walking/Shop/Light housework (occasional shortness of breath with flat [id number] change or worsening) Past Family History Family History Mother Hypertension Father Hypertension Past Surgical History Surgical History H/O thyroidectomy History of cardiac cath ~age 81, for SOB, [place], [place], no stents; f/u dr. weaver, [place] History of dilatation and curettage History of esophagogastroduodenoscopy (EGD) Hx of bilateral cataract extraction Hx of colonoscopy Hx of dilation of urethra Hx of eye surgery "laser" surgery on eye after cataract sx. Hx of tonsillectomy Past Anesthesia History No Hx of Anesthesia Complications and No Family Hx of Anesthesia Complications History of PONV History of PONV (dilation of urethra) and Hx of Motion Sickness Social History Smoking Status: Former smoker Do You Dip or Chew Tobacco: No Smoking End Date: age 22 Hx Alcohol Use: No Hx Substance Use: No substance use type: does not use Review of Systems Snoring, denies witnessed apneas. Patient denies chest pain, shortness of breath, fever, chills, cough, wheezing, or palpitations. Physical Exam Vital Signs Vitals BP 172/81 (Pt notes is anxious/stressed regarding surgery) P 65 TEMP 97.9 SP02 94% on RA RESP 17 Physical Patient resting comfortably in chair in no acute distress, alert and oriented, responding appropriately throughout visit Full cervical extension range of motion without pain TMD 3.5 finger breadths Mallampati Score 3 Dentition: intact, denies chipped or loose teeth, caps/crowns, implants or bridges Lungs: normal respiratory effort. Good air movement, clear throughout to auscultation, no adventitious breath sounds Cardiac: regular rate and rhythm, no murmurs noted Carotid arteries: negative bruit bilat Lab Results Anesthesia Preop Results Results Anesthesia Widget: WBC 5.08 K/ul (4.8-10.8) 12/09/23 Hgb 12.2 g/dl (12.0-16.0) 12/09/23 Hct 37.3 % (37.0-47.0) 12/09/23 Plt 237 K/uL (130-400) 12/09/23 Na 134 mmol/L (136-145) L 12/09/23 K 3.4 mmol/L (3.5-5.1) L 12/09/23 Cl 96 mmol/L (98-107) L 12/09/23 CO2 30 mmol/L (21-32) 12/09/23 BUN 22 mg/dl (6-23) 12/09/23 Creat 1.13 mg/dl (0.6-1.2) 12/09/23 Glucose Level 74 mg/dl (70-99(Fasting)) 12/09/23 PT 10.3 Seconds (9.0-12.0) 12/09/23 PTT 28 Seconds (21-31) 12/09/23 INR 0.9 (0.9-1.1) 12/09/23 HA1c 6.0 % (4.5-5.6) H 12/09/23 Urine Color Yellow 12/09/23 Urine Appearance Clear (Clear) 12/09/23 Urine pH 7.0 (4.5-7.5) 12/09/23 Urine Specific Hardesty 1.015 (1.000-1.030) 12/09/23 Urine Protein Negative (Negative) 12/09/23 Urine Glucose (UA) Negative (Negative) 12/09/23 Urine Ketones Negative (Negative) 12/09/23 Urine Blood Negative (Negative) 12/09/23 Urine Nitrite Negative (Negative) 12/09/23 Urine Bilirubin Negative (Negative) 12/09/23 Urine Urobilinogen Negative (Negative) 12/09/23 Urine Leukocyte Esterase Trace (Negative) H 12/09/23 Urine WBC (Auto) 1-5 /hpf (0-5) 12/09/23 Urine RBC (Auto) 0-4 /hpf (0-4) 12/09/23 Urine Hyaline Casts (Auto) 0 /lpf (0-5) 12/09/23 Urine Epithelial Cells (Auto) >30 /lpf (0-5) H 12/09/23 Urine Bacteria (Auto) 1+ (Negative) H 12/09/23 Blood Type O Negative 12/09/23 Antibody Screen NEGATIVE 12/09/23 Testing Electrocardiogram Date: 09/05/23 NSR, rate 67 bpm Chest X-Ray Date: 12/09/23 1. No acute process of the chest. 2. Large hiatal hernia. Echocardiogram Date: 11/06/21 EF 55-60% Grossly normal valvular structure and function Trivial pericardial effusion Stress Test Date: 01/01/23 Pharmacologic Negative for ischemia at MPHR 88% EF 55-60% Mild LVH Moderate biatrial enlargement Mild RV dilation with normal function. Mild mitral regurgitation Other Testing Cardiac event monitor 09/12/23 Sinus rhythm, 52-88 bpm, avg 63 bpm Noted PVCs-burdeon 0.4% SVE: burden 0.6% SVT: 16 events VTach: 1 event-3 beats at 95 bpm Head and neck CTA 11/05/21 1. There is no hemorrhage, mass effect, or evidence of acute territorial ischemia by CT criteria. 2. 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 3. Otherwise unremarkable CT angiogram of the brain. 4. There is approximately 50% focal stenosis at the origin of the right internal carotid artery. 4. Otherwise unremarkable CT angiogram of the neck.
--- NOTE | 2023-12-27 08:14 | History & Physical Report ---
Date of Service December 27, 2023 date of surgery: 01/21/24 Procedure: Right Total Knee Arthroplasty Surgeon: Alan Cleary, DO Assessment & Plan (1) Arthritis of right knee: Plan: Further care discussed with patient and at this point in time has failed cons ervative measures and after discussion with Dr Cleary, she would like to proceed with a right total knee replacement. patient lives alone and will require SNF vs rehab. DVT prophylaxiswith TEDs, SCDs and will also place on aspirin 81 mg p.o. b.i.d. for a month postop. Patient will require cardiac clearance prior to her surgery, Patient will have follow up appointment in our office two weeks post op for staple/suture removal and re-evaluation. Patient otherwise has no other questions or concerns. The risks and benefits have been discussed including, but not limited to, risk of infection, nerve injury, stiffness, loss of motion, failure to improve, etc. Reasonable outcomes and options of treatment were discussed. An explanation of appropriate alternatives to the procedure that may be advantageous were discussed and their risks and benefits, as well as the risks and benefits of not proceeding with treatment. I offered to answer any additional inquiries concerning the treatment involved. All the patient's questions were answered. The patient is agreeable, understanding of the treatment plan and alternatives, and wishes to proceed with the treatment plan. Please note the above document was generated using voice recognition software. It may contain grammatical, syntax or spelling errors. Any formal questions or concerns about the content, text or information contained within the body of this dictation should be directly addressed to the provider for clarification History of Present Illness Chief Complaint: Right knee pain Primary Care Provider: NO PCP Ms Mora is an 88-year-old female who presented for preop prior to upcoming right total knee arthroplasty. She has a longstanding history of right knee pain which gradually worsened and is now affecting her daily activities. She rates her current pain as a 6 out of 10. She undergone previous injections including viscosupplementation with no improvement, she is also tried oral anti- inflammatories and Tylenol as well. At this point time she has failed conservative measures and wishes to proceed with a right total knee arthroplasty Allergies Allergy/AdvReac Type Severity Reaction Status Date / Time No Known Allergies Allergy Verified 12/18/23 14:33 Home Medications Medication Instructions Recorded Confirmed Type acetaminophen 500 mg tablet 500 mg PO HS 11/05/21 12/18/23 History (Tylenol Extra Strength) cholecalciferol (vitamin D3) 125 125 mcg PO QAM 11/05/21 12/18/23 History mcg (5,000 unit) tablet (Vitamin D3) citalopram 10 mg tablet 20 mg PO HS 11/05/21 12/18/23 History levothyroxine 100 mcg capsule 100 mcg PO QAM 01/14/23 12/18/23 History calcium carbonate 600 mg calcium 600 mg PO QAM 09/05/23 12/18/23 History (1,500 mg) tablet metoprolol succinate 50 mg 50 mg PO BID 09/05/23 12/18/23 History tablet,extended release 24 hr losartan 100 0.5 tab PO BID 12/04/23 12/18/23 History mg-hydrochlorothiazide 12.5 mg tablet Past Med/Surg History Medical History GERD (gastroesophageal reflux disease) occasional-diet controlled DVT (deep venous thrombosis) right foot-in setting of trauma-7-8 yrs ago Hiatal hernia Anxiety SOB (shortness of breath) on exertion chronic, denies change or worsening CAD (coronary artery disease) 2011 cath-not requiring stents per pt/[place] [facility] office note Carotid aneurysm, left Thyroid cancer dx in her late 70's, in [place], [place]; sx tx only History of CVA (cerebrovascular accident) "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 and told her she had a stroke in the past as it was seen in imaging at [place]">no residual effects Post-surgical hypothyroidism HTN (hypertension) controlled, stable per pt PVC (premature ventricular contraction) dx at "home in [place], [place]"; f/u sal strong while in [place] in the Surgical History History of dilatation and curettage Hx of dilation of urethra History of esophagogastroduodenoscopy (EGD) Hx of colonoscopy Hx of eye surgery "laser" surgery on eye after cataract sx. Hx of bilateral cataract extraction Hx of tonsillectomy History of cardiac cath ~age 81, for SOB, [place], [place], no stents; f/u jean strong H/O thyroidectomy Family History Mother Hypertension Father Hypertension Social History Smoking Status: Former smoker Tobacco Type: Cigarettes Second Hand Exposure: No; Do You Dip or Chew Tobacco: No; Hx Alcohol Use: No Hx Substance Use: No Preferred Language: Setswana Communication Ability: Effective Senior Structural Engineer Required: No Beliefs That Will Affect Care: None Current Living Situation: Family Feels Safe at Home: Yes Assistive Devices: Denture - Upper, Denture - Lower, Glasses and Walker Review of Systems Constitutional: no fever, no chills and no sweats Respiratory: no cough and no dyspnea Cardiovascular: no chest pain, no dyspnea and no orthopnea Gastrointestinal: no abdominal pain, no nausea and no vomiting Musculoskeletal: as per Subjective / HPI Physical Exam Physical Exam: HT: 5ft 6in WT: 85.7kg Constitutional: WD/WN, vitals as above no acute distress Respiratory: normal respiratory effort, lungs clear to auscultation no respiratory distress, no labored breathing and does not use accessory muscles Cardiovascular: RRR, no murmur, no edema Gastrointestinal (Abdomen): normal bowel sounds, soft, nontender, no hepatosplenomegaly Musculoskeletal: Knee: + knee abnormal to inspection (RIGHT KNEE), + effusion (+1 effusion), + limited ROM of knee (ROM 0/3/110), + knee ROM with crepitation, + joint line tenderness (medial joint line) and + Nick's sign positive; no deformity, no skin erythema, no ecchymosis, no valgus laxity, no varus laxity, anterior drawer test negative, Yolanda's sign negative and pivot shift test negative Results & Data Results & Data Diagnostic Findings Right Knee X-ray: Right knee series showing advanced degenerative changes to the right knee, tricompartmental joint space narrowing, osteophyte formation and subchondral sclerosis noted. no acute bony pathology noted.
[~2024-01-21 07:32] MED LIST: BUPIVACAINE 0.25% PF 30 ML VIAL ONE; BUPIVACAINE 0.5 % 5 MG/1 ML PF 10ML VIAL ONE
[2024-01-21] MEDS ORDERED: ATROPINE SULFATE 0.1 MG/ML 10ML SYR IV PRN (07:52)
[2024-01-21] MEDS ORDERED: ONDANSETRON INJ 2 MG/ML 2 ML VIAL IV PRN (07:52)
[2024-01-21] MEDS ORDERED: fentaNYL citrate PF 100 MCG/2 ML VIAL IV PRN (07:52)
[2024-01-21] MEDS ORDERED: ePHEDrine sulfate 50 MG/ML AMP IV PRN (07:52)
[2024-01-21] MEDS ORDERED: PHENYLEPHRINE 100MCG/ML 10ML SYR IV ONE (08:04)
[2024-01-21] MEDS ORDERED: ePHEDrine sulfate 50 MG/ML AMP ONE (08:04)
[2024-01-21] MEDS ORDERED: ONDANSETRON INJ 2 MG/ML 2 ML VIAL ONE (08:04)
[2024-01-21] MEDS ORDERED: PROPOFOL IV EMULSION 10 MG/ML 20 ML VIAL IV ONE (08:04)
[2024-01-21] MEDS ORDERED: MIDAZOLAM HCL 1 MG/ML 2ML VIAL ONE (08:04)
[2024-01-21] MEDS: LR 500ML BOLUS, THEN 15ML/HR IV SCH (08:53)
[2024-01-21] MEDS: ACETAMINOPHEN 500 MG TAB PO SCH ×2 (08:53→17:37)
[2024-01-21] MEDS: GABAPENTIN 300 MG CAP PO SCH (08:54)
[2024-01-21] MEDS: CeleBREX 200 MG CAP PO SCH (08:54)
[2024-01-21] MEDS: METOCLOPRAMIDE HCL 10 MG TABLET PO SCH (08:54)
[2024-01-21] MEDS: FAMOTIDINE 20 MG TAB PO SCH (08:54)
[2024-01-21] MEDS: LR 60ML/HR IV SCH (08:57)
[2024-01-21] MEDS: TRANEXAMIC ACID / 0.7% NACL 1,000 MG/100 ML BAG IV ONE ×2 (09:48→11:05)
[2024-01-21] MEDS: ceFAZolin 2000MG 2,000 MG/15 ML SYR IV SCH ×2 (10:04→17:38)
[2024-01-21] MEDS ORDERED: LABETALOL HCL IV 5 MG/ML 20ML IV PRN (10:13)
[2024-01-21] MEDS: ORTHO JOINT ANESTHETIC ONE (10:39)
[2024-01-21] MEDS: ROPIV 0.5% 246mg, Ketorolac 30mg, EPINEPHrine 0.5mg in NSS INFIL SCH (11:05)
[2024-01-21] MEDS ORDERED: hydrALAZINE HCL 20 MG/ML VIAL ONE (11:06)
--- NOTE | 2024-01-21 11:06 | Operative Report ---
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 LATRICE Hidalgo Estimated Blood Loss 5 Findings Consistent with Post-Op Diagnosis Patient presents with severe end-stage tricompartmental degenerative joint disease of the right knee with valgus alignment 10 degree flexion contracture large osteophytes subchondral sclerosis subchondral cystic changes eburnated [id number] with a moderate to large effusion Specimens Bone and cartilage Drains Medium bore Hemovac Anesthesia Type MAC Spinal Regional Complications none Disposition Accompanied Patient To Recovery: No Disposition: Recovery Room Indications Patient presents with severe end-stage tricompartmental degenerative joint dis ease of the right knee failed attempted conservative management occluding physical therapy anti-inflammatories relative rest activity modification corticosteroid injection viscosupplementation the above intraoperative findings were noted Description of Procedure After proper prepping and draping of the Right lower extremity anterior midline incision was made over the region of the extensor extensor mechanism after meticulous hemostasis was obtained and maintained in subcutaneous tissues a medial parapatellar incision was made The patella was subluxed lateralward the medial lateral gutter were cleaned from any hypertrophic synovitis and scar tissue of the distal femoral block was placed and the distal femoral osteotomy cut was made subsequently the chamfers anterior and posterior osteotomy cuts were made utilizing the 4-in-1 block the tibia was subsequently subluxed anteriorward medial and ateral meniscal remnants were excised in their entirety remnants of the anterior and posterior cruciate ligaments were excised in their entirety excellent exposure of the proximal tibia was obtained the tibial osteotomy guide was placed on the proximal tibial osteotomy cut was made once again the knee was irrigated with copious amounts of sterile saline solution the patella was subsequently everted lateralward thickened scar tissue around the p atella was removed the patella was subsequently cut utilizing a freehand technique and was drilled prepared for final preparation and placement of patella socially flexion-extension gaps were checked and the equal and symmetric trials were placed to the appropriate femoral and tibial trials with poly-spacer being placed for equal flexion and extension gaps and full range of motion including extension to 0 and flexion to 140 the trial components after having been taken to recovery range of motion was subsequently removed meticulous hemostasis was obtained and maintained subsequently a knee block injection of joint cocktail including ropivacaine 0.5% 150 mg. Bupivacaine 0.5% epinephrine 1-200,030 mL's toradol 30 mg dexamethasone 4 mg ketamine 10 mg clonidine 100 micrograms normal saline solution 30 mg was infiltrated into the soft tissues of the posterior knee medial lateral gutters and periosteal synovium special attention was paid to protect neurovascular structures at all times subsequently trial components having been removed the knee was irrigated with sterile saline solution. debris was removed the proximal tibia was subsequently prepared and was made ready for the placement of the tibial component tibial component was also cemented and tamped into position the femoral component was subsequently placed and cemented in the position the patellar component was subsequently cemented in position because hemostasis once again obtained and maintained wound having been thoroughly irrigated with debridement and debridement lavage was performed as well as a medial parapatellar incision closed with #1 Vicryl in interrupted fashion subcutaneous was closed with #2 Vicryl skin was closed with skin clips. PA-C was necessary for prepping and drapping as well as wound closure of deep fascia Sub cutaneous tissue and skin and was necessary for the case. A sterile compressive dressing was placed patient was taken to recovery in stable condition of report dictated by Evin I attest to the content of the Intraoperative Record and any orders documented therein. Any exceptions are noted below.Due to the complex nature of the procedure, the entire surgery was performed with the operational assistance of LATRICE Hidalgo. The triage assistant, under direct supervision, was involved in the actual performance of all aspects of the surgical procedure including hemostasis, tissue retraction and incision, instrument management, patient positioning, and wound closure. I attest to the content of the Intraoperative Record and any orders documented therein. Any exceptions are noted below.
--- NOTE | 2024-01-21 12:28 | XRay Report ---
XR knee RT 1 or 2V routine CLINICAL HISTORY: Surgical Post Op TECHNIQUE: 2 views of the right knee were obtained. Comparison: Comparison is made to knee radiographs 09/25/2022 FINDINGS: Patient is status post total knee arthroplasty with expected postsurgical changes including soft tiss ue swelling and subcutaneous emphysema. No periarticular lucency or hardware fracture is seen. IMPRESSION: Expected postoperative appearance status post placement of total knee arthroplasty. ACT 112: Negative or not required by law. Electronically signed by: Naif James M.D. 01/21/2024 12:27 PM
[2024-01-21] MEDS: hydrALAZINE HCL 20 MG/ML VIAL IV ONE (12:39)
--- NOTE | 2024-01-21 13:30 | Anesthesiology Progress Note ---
Date of Service January 21, 2024 Anesthesia Post Procedure Vital Signs Vital Signs: Temp Pulse Pulse Resp BP Pulse Ox O2 Del Method 01/21/24 13:15 36.4 C L 54 L 19 145/59 H 92 Room Air 01/21/24 13:05 53 L 22 158/62 H 93 Room Air 01/21/24 12:55 53 L 17 160/69 H 95 Room Air 01/21/24 12:45 52 L 16 185/76 H 94 Room Air 01/21/24 12:35 52 L 17 187/72 H 94 Room Air 01/21/24 12:30 192/71 H 01/21/24 12:25 53 L 20 168/67 H 94 Room Air 01/21/24 12:15 53 L 18 174/69 H 95 Room Air 01/21/24 12:05 54 L 17 155/67 H 94 Room Air 01/21/24 11:55 54 L 12 161/66 H 96 Room Air 01/21/24 11:45 57 L 12 164/67 H 100 Oxymask 01/21/24 11:35 36.2 C L 58 L 15 167/66 H 100 Oxymask 01/21/24 08:30 36.6 C 56 L 20 220/83 H 94 Room Air O2 Flow Rate 01/21/24 13:15 01/21/24 13:05 01/21/24 12:55 01/21/24 12:45 01/21/24 12:35 01/21/24 12:30 01/21/24 12:25 01/21/24 12:15 01/21/24 12:05 01/21/24 11:55 01/21/24 11:45 7 01/21/24 11:35 7 01/21/24 08:30 Transfer of Care Handoff Completed per policy Notes Mental Status: alert / awake / arousable Patient Amnestic to Procedure: Yes Nausea / Vomiting: adequately controlled Pain: adequately controlled Airway Patency, RR, SpO2: stable & adequate BP & HR: stable & adequate Hydration State: stable & adequate Neuraxial Anesthesia: was administered and sensory block is resolving Anesthetic Complications: no major complications apparent and Pt Satisfied with anesthetic care Notes: Patient received 5mg IV hydralazine near end of case in OR and another 5mg IV hydralazine in recovery. BP responded nicely. She is awake and conversant. No pain/PONV/chest pain/SOB/dizziness/blurry vision. Patient satisfied with her anesthetic care. Plan to go to med-tele for postop monitoring and possible BP control.
[2024-01-21] MEDS ORDERED: MAGNESIUM HYDROXIDE SUSP 30 ML UDC PO PRN (14:51)
[2024-01-21] MEDS ORDERED: NALOXONE HCL 0.4 MG/1 ML VIAL/CARP IV PRN (14:51)
[2024-01-21] MEDS ORDERED: bisacodyL 10 MG SUPP PR PRN (14:51)
[2024-01-21] MEDS ORDERED: diphenhydrAMINE Capsule 25 MG CAP PO PRN (14:51)
[2024-01-21] MEDS ORDERED: METOCLOPRAMIDE HCL INJ 5 MG/ML 2 ML VIAL IV PRN (14:51)
[2024-01-21] MEDS ORDERED: HYDROmorphone INJ 1 MG/ML SYRINGE IV PRN (14:51)
--- NOTE | 2024-01-21 17:17 | Hospitalist Consultation ---
Date of Consultation January 21, 2024 Assessment & Plan (1) Arthritis of right knee: s/p Right Total Knee Arthroplasty(Right) utilizing [employer] journey 2 patient-matched total knee arthroplasty size femur 4 tibia 3 poly 11 patella 29 oval- Alan Cleary DO 01/20 EBL 5cc Pain control, bowel regimen per primary service DVT proph: ASA 81mg BID PT/OT consults ordered Checking BMP/mag given pre-op hypokalemia. Monitoring on med tele, NSR/sinus tanya Monitor labs in AM (2) CAD (coronary artery disease): follows with [facility] cardiology, recently seen by Dr Santiago Continues on metoprolol BID Usual losartan increased to 100mg daily, HCTZ remains 25mg daily per most recent cardiology note -- cancelling current HCTZ/Losartan order and will monitor BP overnight and ensure renal function stable on AM labs (and post-op to ensure no electrolyte abn) --> If BP stable/no hypotension and renal function stable in AM can resume at correct dosing 100-25mg ASA BID for DVT proph as above, should be on daily but had not been taking per recent cards note Lipid panel acceptable TRG 128, chol 158, LDL 81, HDL 51 - should be on statin therapy given hx cryptogenic stroke per cards note. can be discussed in f/u telemetry monitoring post-op (3) HTN (hypertension): BP stable post-op in settingof pain 169/68 continue metoprolol BID holding AM hCTZ/losartan as above and hopefully able to resume in AM if no hypotension/Cr elevation Monitor (4) Hypothyroidism: s/p thyroidectomy most recent TSH wnl, remains on synthroid daily (5) Cryptogenic stroke: as above, noted old CVA per cards note. should be on ASA/statin as outlined (6) Carotid aneurysm, left: noted during admission in 2021 -- outpt f/u PCP Plan Thank you for allowing hospitalist service participate in the care of Ms Mora. Hospitalist service will follow along. Please call with any questions/concerns. Supervising Physician Co-Signing Physician Notes The patient was seen by me. The chart was reviewed. Case discussed with LATRICE Cooper. Agree with assessment and plan History of Present Illness Reason for Consultation: post-op management, HTN h/o CAD Requesting Physician: Dr Cleary Attending Physician: Alan J Cleary, DO History of Present Illness 88yo female with PMHx significant for hypothyroidism (s/p thyroidectomy), CAD, HTN, PVC, anxiety, GERD, CVA presented for elective RIGHT total knee arthoplasty with Dr Cleary this morning. EBL 5cc Evaluated post op in room 258-1, sitting up in bed, doing well. Ate turkey sandwich for lunch, inquiring about supper. Will discuss w/ nursing to ensure she receives a tray. Reports not having any CP/SOB at present time, on room air. Pain coming back to her left leg at present time, nursing calling pharmacy for medications. No abdominal pain, nausea, vomiting reported. Notable recent change to her HCTZ-Losartan. Lab in drawing repeat BMP/mag to ensure no electrolyte abnormality/replacement needed given hypokalemia on pre-op labs and no mag checked. Discussed likely from HCTZ use, she reports she is not on any oral potassium at baseline. Does endorse some fatigue, hx thyroidectomy and recent TSH wnl and remains on Synthroid. Patient was seen by PCP and cardiology prior to surgery. UA obtained/given bactrim and tolerated x 7 pills but had GI upset. Urine cx finalized mixed el. Cardiology recently changed her losartan component of her losartan-HCTZ to 100mg-25mg daily. Was told to be on aspirin, on BID for DVT prophylaxis but should continue daily. Lipid panel acceptable TRG 128, chol 158, LDL 81, HDL 51 and will need f/u about statin therapy given hx cryptogenic stroke (by history told old stroke, right hemispheric site, several years ago, have not identified afib but possible has missed it but should be on aspirin daily per recent note). She reports she had not started this yet but discussed BID x 6weeks then should continue once daily. She notes to take with food as does have reflux but not on meds. Typically takes tums or maalox if needed. Discussed adding pepcid if needed as got steroids with surgery and can sometimes make this worse. Questions/concerns addressed at this time. Allergies Allergy/AdvReac Type Severity Reaction Status Date / Time No Known Allergies Allergy Verified 01/21/24 08:16 Home Medications Medication Instructions Recorded Confirmed Type acetaminophen 500 mg tablet 500 mg PO HS 11/05/21 01/21/24 History (Tylenol Extra Strength) cholecalciferol (vitamin D3) 125 125 mcg PO QAM 11/05/21 01/21/24 History mcg (5,000 unit) tablet (Vitamin D3) citalopram 10 mg tablet 20 mg PO HS 11/05/21 01/21/24 History levothyroxine 100 mcg capsule 100 mcg PO QAM 01/14/23 01/21/24 History calcium carbonate 600 mg calcium 600 mg PO QAM 09/05/23 01/21/24 History (1,500 mg) tablet metoprolol succinate 50 mg 50 mg PO BID #180 tabs 01/07/24 01/21/24 Rx tablet,extended release 24 hr losartan 100 1 tab PO DAILY #30 tabs 01/09/24 01/21/24 Rx mg-hydrochlorothiazide 25 mg tablet Patient History Medical History GERD (gastroesophageal reflux disease) occasional-diet controlled DVT (deep venous thrombosis) right foot-in setting of trauma-7-8 yrs ago Hiatal hernia Anxiety SOB (shortness of breath) on exertion chronic, denies change or worsening CAD (coronary artery disease) 2012 cath-not requiring stents per pt/[place] cardio office note Carotid aneurysm, left Thyroid cancer dx in her late 70's, in [place], [place]; sx tx only History of CVA (cerebrovascular accident) "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 and told her she had a stroke in the past as it was seen in imaging at [place]">no residual effects Post-surgical hypothyroidism HTN (hypertension) controlled, stable per pt PVC (premature ventricular contraction) dx at "home in [place], [place]"; f/u sal strong while in [place] in the Surgical History History of dilatation and curettage Hx of dilation of urethra History of esophagogastroduodenoscopy (EGD) Hx of colonoscopy Hx of eye surgery Hx of bilateral cataract extraction Hx of tonsillectomy History of cardiac cath H/O thyroidectomy Family History Mother Hypertension Father Hypertension Social History Smoking Status: Former smoker Tobacco Type: Cigarettes Smoking End Date: age 22; Second Hand Exposure: No; Do You Dip or Chew Tobacco: No; Tobacco Cessation Education Requested by Patient: No Hx Alcohol Use: No Hx Substance Use: No Preferred Language: Kinyarwanda Communication Ability: Effective Oracle Fusion Developer Required: No Beliefs That Will Affect Care: None Current Living Situation: Alone Other Information That Helps Us Care for You: No Feels Safe at Home: Yes Safety Concerns: Feels Safe At This Time Assistive Devices: Denture - Upper, Denture - Lower and Glasses Review of Systems Review of Systems: All systems reviewed & are unremarkable except as noted in HPI & below Physical Exam Physical Exam: General: 88yo female sitting up in bed post-op, NAD, appears well Head atraumatic, normocephalic, mmm, trachea midline, prior thyroidectomy scar noted Resp: even/unlabored , no w/c/r, on room air CV: RRR/slightly tanya to 50s at times, no significant m/r/g, no pitting edema/calf tenderness, pulses palpable, toes mobile GI: +BS, soft/NT MSK/Neuro: dressing to RIGHT knee c/d/i, NAHUN wrap in place, 2 ice packs, drain functioning, approx 50cc bloody output, toes mobile, sensation returning to light touch, intact to pressure, cap refill wnl, SCDs in place Psych: AOx3, cooperative with exam Results & Data Results & Data Vital Signs (Past 12 Hours) Vital Signs Temp Pulse Pulse Pulse Pulse Resp BP 01/21/24 16:45 56 L 01/21/24 15:41 36.5 C 56 L 16 169/68 H 01/21/24 15:05 36.6 C 58 L 20 151/73 H 01/21/24 14:35 36.5 C 56 L 20 133/71 01/21/24 14:15 57 L 16 141/57 H 01/21/24 14:00 57 L 14 129/58 L 01/21/24 13:45 56 L 19 156/68 H 01/21/24 13:30 53 L 16 148/69 H 01/21/24 13:15 36.4 C L 54 L 19 145/59 H 01/21/24 13:05 53 L 22 158/62 H 01/21/24 12:55 53 L 17 160/69 H 01/21/24 12:45 52 L 16 185/76 H 01/21/24 12:35 52 L 17 187/72 H 01/21/24 12:30 192/71 H 01/21/24 12:25 53 L 20 168/67 H 01/21/24 12:15 53 L 18 174/69 H 01/21/24 12:05 54 L 17 155/67 H 01/21/24 11:55 54 L 12 161/66 H 01/21/24 11:45 57 L 12 164/67 H 01/21/24 11:35 36.2 C L 58 L 15 167/66 H 01/21/24 08:30 36.6 C 56 L 20 220/83 H Pulse Ox O2 Del Method O2 Flow Rate 01/21/24 16:45 01/21/24 15:41 95 Room Air 01/21/24 15:05 93 Room Air 01/21/24 14:35 96 Room Air 01/21/24 14:15 92 Room Air 01/21/24 14:00 95 Room Air 01/21/24 13:45 92 Room Air 01/21/24 13:30 94 Room Air 01/21/24 13:15 92 Room Air 01/21/24 13:05 93 Room Air 01/21/24 12:55 95 Room Air 01/21/24 12:45 94 Room Air 01/21/24 12:35 94 Room Air 01/21/24 12:30 01/21/24 12:25 94 Room Air 01/21/24 12:15 95 Room Air 01/21/24 12:05 94 Room Air 01/21/24 11:55 96 Room Air 01/21/24 11:45 100 Oxymask 7 01/21/24 11:35 100 Oxymask 7 01/21/24 08:30 94 Room Air Diagnostic Findings Knee X-Ray 01/21/24 11:39 XR knee RT 1 or 2V routine CLINICAL HISTORY: Surgical Post Op TECHNIQUE: 2 views of the right knee were obtained. Comparison: Comparison is made to knee radiographs 09/25/2022 FINDINGS: Patient is status post total knee arthroplasty with expected postsurgical changes including soft tissue swelling and subcutaneous emphysema. No periarticular lucency or hardware fracture is seen. IMPRESSION: Expected postoperative appearance status post placement of total knee arthroplasty. ACT 112: Negative or not required by law. Electronically signed by: Naif James M.D. 01/21/2024 12:27 PM PG Care Time/CCT Total # of Minutes Spent Total Time Spent with Patient: Total time spent is greater than 50% in coordination of care (as documented) at patient's floor/unit and/or counseling patient: Coding Level of Care Code 68917 IN/OBS CONSULT LVL 3,45M Diagnoses Arthritis of right knee M17.11 Coronary artery disease involving [place] coronary artery of [place] heart without angina pectoris I25.10 Associated angina: without angina Coronary Disease-Associated Artery/Lesion type: [place] artery [place] vs. transplanted heart: [place] heart Primary hypertension I10 Hypertension type: primary hypertension Hypothyroidism E03.9 Cryptogenic stroke I63.9 Carotid aneurysm, left I72.0 (2) CAD (coronary artery disease) Associated angina: without angina Coronary Disease-Associated Artery/Lesion type: [place] artery [place] vs. transplanted heart: [place] heart Qualified Code(s): I25.10 - Atherosclerotic heart disease of [place] coronary artery without angina pectoris (3) HTN (hypertension) Hypertension type: primary hypertension Qualified Code(s): I10 - Essential (primary) hypertension
[2024-01-21] MEDS ORDERED: FAMOTIDINE 20 MG TAB PO PRN (17:32)
[2024-01-21] MEDS: KETOROLAC TROMETHAMINE 15 MG/ML VIAL IV SCH (17:37)
[2024-01-21 17:59] LABS: BUN Creatinine Ratio 21.5 (10-20); Calcium 8.3 mg/dl (8.6-10.3); Creatinine Clr Calc Pharmacy 30.1 ml/min; Est GFR (African American) 37.7 ml/min; Est GFR (Non-African American) 32.6 ml/min; Potassium 3.5 mmol/L (3.5-5.1)
[2024-01-21] MEDS: SODIUM CHLORIDE 0.9% 1,000 ML IV SCH (18:32)
[2024-01-21] MEDS: hydrALAZINE HCL 20 MG/ML VIAL ONE (18:45)
[2024-01-21] MEDS: DOCUSATE SODIUM 100 MG CAP PO SCH (20:01)
[2024-01-21] MEDS: SENNA 8.6 MG TAB PO SCH (20:02)
[2024-01-21] MEDS: METOPROLOL SUCC 50MG EXT REL TAB PO SCH (20:02)
[2024-01-21] MEDS: CITALOPRAM 20 MG TAB PO SCH (20:02)
[2024-01-21] MEDS: ASPIRIN 81 MG ECTAB PO SCH (20:03)
[2024-01-22 06:39] LABS: Basophils # (auto) 0.03 K/uL (0.00-0.20); Basophils % (auto) 0.5 %; Eosinophils % (auto) 1.5 %; Hematocrit (blood only) 33.8 % (37.0-47.0); Hemoglobin 11.3 g/dl (12.0-16.0); Immature Granulocytes # (auto) 0.02 K/uL (0.01-0.20); Immature Granulocytes % (auto) 0.3 %; Lymphocytes # (auto) 1.19 K/uL (1.20-3.40); Mean Corpuscular Hemoglobin 30.9 pg (25.0-34.0); Mean Corpuscular Hgb Conc 33.4 g/dL (32.0-36.0); Mean Corpuscular Volume 92.3 fL (80.0-100.0); Mean Platelet Volume 10.9 fL (9.4-12.4); Monocytes # (auto) 0.53 K/uL (0.11-0.59); Neutrophils # (auto) 4.73 K/uL (1.40-6.50); Neutrophils % (auto) 71.7 %; Platelet Count 223 K/uL (130-400); RDW Coefficient of Variation 12.9 % (11.5-14.5); RDW Standard Deviation 43.7 fL (36.4-46.3); Red Blood Count 3.66 M/uL (4.20-5.40)
[2024-01-22 06:50] LABS: Albumin Globulin Ratio 1.1 (0.9-2); Albumin Level 3.2 gm/dl (3.4-5.0); BUN Creatinine Ratio 20.8 (10-20); Bilirubin,Total 0.6 mg/dl (0.2-1.0); Calcium 7.6 mg/dl (8.6-10.3); Creatinine Clr Calc Pharmacy 27.2 ml/min; Est GFR (African American) 33.5 ml/min; Est GFR (Non-African American) 28.9 ml/min; Globulin 2.8 gm/dl (2.5-4.0); Magnesium 1.9 mg/dl (1.7-2.4); Potassium 3.5 mmol/L (3.5-5.1)
[2024-01-22 07:05] LABS: Thyroid Stimulating Hormone 7.093 uIu/ml (0.300-4.500)
--- NOTE | 2024-01-22 07:27 | Orthopedic Progress Note ---
Date of Service January 22, 2024 Assessment & Plan (1) History of total right knee replacement: Plan: POD #1 s/p right TKA pt/ot dvt proph with JOCY/SCD/ASA plan for d/c home with HHPT, plans to stay with her daughter at her daughters house Admission and Anticipated Discharge Date Admission Date: January 21, 2024 Subjective POD #1 s/p Right TKA Review of Systems Constitutional: no fever, no chills and no sweats Respiratory: no cough and no dyspnea Cardiovascular: no chest pain and no dyspnea Gastrointestinal: no abdominal pain, no nausea and no vomiting Physical Exam Physical Exam: Vital Signs Temp 36.7 C 01/22/24 04:12 Pulse 61 01/22/24 07:17 Resp 18 01/22/24 04:12 BP 138/69 01/22/24 04:12 Pulse Ox 90 01/22/24 04:12 O2 Del Method Room Air 01/22/24 04:12 O2 Flow Rate 7 01/21/24 11:45 Intake & Output 01/21/24 01/22/24 01/22/24 18:59 06:59 18:59 Intake Total 1000 / 2600 1600 / 2600 Output Total 45 / 45 Balance 955 / 2555 1600 / 2555 Weight 84 kg Intake: IV 100 / 1500 1400 / 1500 Lactated Ringe r's 1,000 ml @ 15 0 / 0 mls/hr IV .Q24 H ARIELLA Rx#: [id number] Sodium Chlorid e 0.9% 1,000 ml @ 1300 / 1300 100 mls/hr IV .Q10H ARIELLA Rx#: [id number] Tranexamic Aci d / 0.7% NaCl 1, 100 / 200 100 / 200 000 mg In 100 ml @ 1 MG/KG/HR 8 .4 mls/hr IV . [id number] ONE Rx#: [id number] IV Perioperative 900 / 900 Oral 200 / 200 Output: Estimated Blood Loss 5 / 5 Drain Output 40 / 40 Right Knee Hem ovac 40 / 40 Other: # Unmeasured Voi ds 1 Weight Measureme nt Method Standing Scale Musculoskeletal: Right Leg: NVDI, calf SNT, negative tammy sign. DP palpable, able to wiggle toes/ankle movement without difficulty. dressing clean dry and intact. Results & Data Vital Signs (Past 12 Hours) Vital Signs Temp Pulse Pulse Resp BP Pulse Ox O2 Del Method 01/22/24 07:17 61 01/22/24 04:12 36.7 C 52 L 18 138/69 90 Room Air 01/22/24 00:34 61 01/21/24 23:31 36.7 C 76 18 177/80 H 91 Room Air 01/21/24 20:00 64 01/21/24 20:00 Room Air 01/21/24 19:53 36.7 C 58 L 18 137/65 91 Room Air Laboratory Results Laboratory Results WBC 6.60 K/ul (4.8-10.8) 01/22/24 05:52 RBC 3.66 M/uL (4.20-5.40) L 01/22/24 05:52 Hgb 11.3 g/dl (12.0-16.0) L 01/22/24 05:52 Hct 33.8 % (37.0-47.0) L 01/22/24 05:52 MCV 92.3 fL (80.0-100.0) 01/22/24 05:52 MCH 30.9 pg (25.0-34.0) 01/22/24 05:52 MCHC 33.4 g/dL (32.0-36.0) 01/22/24 05:52 RDW Std Deviation 43.7 fL (36.4-46.3) 01/22/24 05:52 RDW Coeff of Nathan 12.9 % (11.5-14.5) 01/22/24 05:52 Plt Count 223 K/uL (130-400) 01/22/24 05:52 MPV 10.9 fL (9.4-12.4) 01/22/24 05:52 Immature Gran % (Auto) 0.3 % 01/22/24 05:52 Neut % (Auto) 71.7 % 01/22/24 05:52 Lymph % (Auto) 18.0 % 01/22/24 05:52 [place] % (Auto) 8.0 % 01/22/24 05:52 Eos % (Auto) 1.5 % 01/22/24 05:52 Baso % (Auto) 0.5 % 01/22/24 05:52 Neut # (Auto) 4.73 K/uL (1.40-6.50) 01/22/24 05:52 Lymph # (Auto) 1.19 K/uL (1.20-3.40) L 01/22/24 05:52 [place] # (Auto) 0.53 K/uL (0.11-0.59) 01/22/24 05:52 Eos # (Auto) 0.10 K/uL (0.00-0.50) 01/22/24 05:52 Baso # (Auto) 0.03 K/uL (0.00-0.20) 01/22/24 05:52 Immature Gran # (Auto) 0.02 K/uL (0.01-0.20) 01/22/24 05:52 Sodium 134 mmol/L (136-145) L 01/22/24 05:52 Potassium 3.5 mmol/L (3.5-5.1) 01/22/24 05:52 Chloride 102 mmol/L (98-107) 01/22/24 05:52 Carbon Dioxide 27 mmol/L (21-32) 01/22/24 05:52 Anion Gap 5 (3-11) 01/22/24 05:52 BUN 33 mg/dl (6-23) H 01/22/24 05:52 Creatinine 1.59 mg/dl (0.6-1.2) H 01/22/24 05:52 Est Cr Clr Drug Dosing 27.2 ml/min 01/22/24 05:52 Est GFR ( Amer) 33.5 ml/min 01/22/24 05:52 Est GFR (Non-Af Amer) 28.9 ml/min 01/22/24 05:52 BUN/Creatinine Ratio 20.8 (10-20) H 01/22/24 05:52 Glucose 87 mg/dl (70-99(Fasting)) 01/22/24 05:52 Calcium 7.6 mg/dl (8.6-10.3) L 01/22/24 05:52 Magnesium 1.9 mg/dl (1.7-2.4) 01/22/24 05:52 Total Bilirubin 0.6 mg/dl (0.2-1.0) 01/22/24 05:52 AST 18 U/L (13-39) 01/22/24 05:52 ALT 7 U/L (7-52) 01/22/24 05:52 Alkaline Phosphatase 52 U/L (34-104) 01/22/24 05:52 Total Protein 6.0 gm/dl (6.0-8.3) 01/22/24 05:52 Albumin 3.2 gm/dl (3.4-5.0) L 01/22/24 05:52 Globulin 2.8 gm/dl (2.5-4.0) 01/22/24 05:52 Albumin/Globulin Ratio 1.1 (0.9-2) 01/22/24 05:52 TSH 7.093 uIu/ml (0.300-4.500) H 01/22/24 05:52 Impressions Knee X-Ray 01/21/24 11:39 XR knee RT 1 or 2V routine CLINICAL HISTORY: Surgical Post Op TECHNIQUE: 2 views of the right knee were obtained. Comparison: Comparison is made to knee radiographs 09/25/2022 FINDINGS: Patient is status post total knee arthroplasty with expected postsurgical changes including soft tissue swelling and subcutaneous emphysema. No periarticular lucency or hardware fracture is seen. IMPRESSION: Expected postoperative appearance status post placement of total knee arthroplasty. ACT 112: Negative or not required by law. Electronically signed by: Naif James M.D. 01/21/2024 12:27 PM
--- NOTE | 2024-01-22 07:30 | Discharge Summary ---
Date of Service date of discharge: January 22, 2024 date of admission: 01/21/24 Admission HPI Per Admitting Provider Ms Mora is an 88-year-old female who presented for preop prior to upcoming right total knee arthroplasty. She has a longstanding history of right knee pain which gradually worsened and is now affecting her daily activities. She rates her current pain as a 6 out of 10. She undergone previous injections including viscosupplementation with no improvement, she is also tried oral anti- inflammatories and Tylenol as well. At this point time she has failed conservative measures and wishes to proceed with a right total knee arthroplasty Principal Diagnosis right knee osteoarthritis Discharge Exam Vital Signs Temp 36.7 C 01/22/24 04:12 Pulse 61 01/22/24 07:17 Resp 18 01/22/24 04:12 BP 138/69 01/22/24 04:12 Pulse Ox 90 01/22/24 04:12 O2 Del Method Room Air 01/22/24 04:12 O2 Flow Rate 7 01/21/24 11:45 Intake & Output 01/21/24 01/22/24 01/22/24 18:59 06:59 18:59 Intake Total 1000 / 2600 1600 / 2600 Output Total 45 / 45 Balance 955 / 2555 1600 / 2555 Weight 84 kg Intake: IV 100 / 1500 1400 / 1500 Lactated Ringer's 1,000 ml @ 15 0 / 0 mls/hr IV .Q24H [facility] Rx#: [id number] Sodium Chloride 0.9% 1,000 ml @ 1300 / 1300 100 mls/hr IV .Q10H [facility] Rx#: [id number] Tranexamic Acid / 0.7% NaCl 1, 100 / 200 100 / 200 000 mg In 100 ml @ 1 MG/KG/HR 8 .4 mls/hr IV .[id number] ONE Rx#: [id number] IV Perioperative 900 / 900 Oral 200 / 200 Output: Estimated Blood Loss 5 / 5 Drain Output 40 / 40 Right Knee Hemovac 40 / 40 Other: # Unmeasured Voids 1 Weight Measurement Method Standing Scale Musculoskeletal Right Leg: NVDI, calf SNT, negative tammy sign. DP palpable, able to wiggle toes/ankle movement without difficulty. dressing clean dry and intact. Discharge Data Allergies Allergy/AdvReac Type Severity Reaction Status Date / Time No Known Allergies Allergy Verified 01/21/24 08:16 Consultations 01/21/24 14:51 Consult Hospitalist Routine Procedures Performed Operation Date: 01/21/24 09:15 Actual Procedures p Right Total Knee Arthroplasty(Right) - Alan Vinson DO Ordered Studies 01/21/24 05:00 US - OR guided needle placemen Routine Hospital Course (1) History of total right knee replacement: POD #1 s/p right TKA pt/ot dvt proph with JOCY/SCD/ASA plan for d/c home with HHPT, plans to stay with her daughter at her daughters house Total Time Total Time Spent Total Time Spent (In Minutes): 20 Discharge Plan Discharge Items Patient Disposition: Home - Home Health Services Reason For Visit: Right Knee Osteoarthritis Discharge Diagnosis: right total knee replacement Activity: Per Instructions section Weightbearing Comment: WBAT with walker Non-emergency contact: Surgeon Call non-emergency contact if: you have any medication questions, your temperature is above 101, your wound has increased redness, your wound has increased drainage and your wound pain has increased Follow-up/Referrals: PCP,NO [Physician] - Diet: Regular Ambulatory Orders: Basic Metabolic Panel (Routine) Timeframe: 20240124 Location: Determined by Patient Ordered By: Karen Astorga Attending Provider Instructions: ACTIVITY RECOMMENDATIONS: SELF CARE INSTRUCTIONS AFTER TOTAL KNEE REPLACEMENT A. You may need to continue a physical therapy program after discharge from the hospital. There are several options available to you. Your doctor will assist you in selecting the best one for you. 1. An out-patient facility 2 to 3 times a week for therapy or home therapy. 2. Continue working on all exercises taught to you in the hospital. Your goals should be to increase bending of your knee to 90 degrees and beyond and to fully straighten your knee. B. You may progress at your own pace from walking with a walker or crutches to a cane; then to no assistive devices. C. Make walking a part of your daily routine. Be up as much as comfortable with rest periods throughout the day. Rest with leg elevation is very important. Use the ice wrap frequently for the first 3-4 weeks. D. There are no restrictions on activities. You may ride in a car, shop, participate in cross country coach and all social activities. E. Wear the long elastic stockings (JOCY hose) 20 hours a day for 2 weeks after surgery. They can be removed several times a day for laundering and for a bath. F. You may shower, no tub baths until cleared by your doctor. SPECIAL CARE INSTRUCTIONS: VERY IMPORTANT TO READ AND REVIEW A. There are a few signs you need to watch for after you are home. Call [facility] if you notice any of the followin. Increased severe knee pain. Some pain is expected especially when you exercise. 2. Increased swelling in your leg or knee; pain or swelling of the calf muscle in either lower leg. 3. Any fluid drainage from the incision. 4. Shortness of breath or chest pain. B. Please call [facility] at if you have any concerns or questions about your operation or recovery. The doctor or his nurse will return your call promptly. C. You must take antibiotics before dental work, bladder, bowel or other surgery. Your doctor will provide you with a permanent care to carry describing this precaution. IMPORTANT: * REMEMBER TO TAKE ASPIRIN, 81 MG, TWICE DAILY FOR 4 WEEKS UNLESS OTHERWISE DIRECTED. THIS IS YOUR BLOOD THINNER. * HIGH RISK PATIENTS MAY BE PRESCRIBED A STRONGER BLOOD THINNER. THIS WILL BE PROVIDED AT DISCHARGE. * CALL IF INCREASED PAIN, REDNESS, DRAINAGE OR FEVER GREATER THAT 101. * WEAR JOCY HOSE 20 HOURS PER DAY FOR 2 WEEKS. DRESSING INSTRUCTIONS * MASON Dressing- This is a large suction dressing covering your incision. This will help pull any excess drainage from the wound and allow your incision to heal properly. You may shower with this if you can keep the unit outside of the shower. If any bleeding or leakage is noted please call your doctor's office. This will remain on your incision for 7 days and then should be removed. This can be done yourself or by the home nursing staff if applicable. The entire unit is disposable once removed. Once removed, keep incision clean and dry. If redness or drainage is noted, please call your surgeon. ONCE MASON IS REMOVED, FOLLOW THESE INSTRUCTIONS: DERMABOND Prineo- This is a mesh tape dressing that is covered with glue. It should remain in place until the incision is properly healed, usually 10-14 days. This dressing is designed to naturally slough off. You may trim the excess mesh tape as it peels off. Incision may be briefly wet in a shower. Dry immediately by blotting with a clean, dry towel. Do not bath or swim until instructed by your doctor. Do not scratch, rub, or pick at the dressing. Do not apply any topical ointments or lotions until dressing is completely removed and/or instructed by your doctor. There may be a small piece of suture material at one end of your incision. Do not pull or trim this. If it is bothersome or catching on clothing, you may cover it with a band-aid. IF INCISION IS LEAKING THROUGH DRESSING, CALL THE OFFICE . FOLLOW UP VISIT: If appointment is not already scheduled: Please call [facility] to make a follow-up appointment for 2 weeks after your surgery at . Addtl Toolroom Attendant Provider Instructions: You should HOLD off on taking the hydrochlorithiaize for blood pressure given elevated kidney numbers. This is a diuretic and can make this worse. You should continue to monitor your blood pressures at home and resume losartan 100mg for tomorrow. I have sent a new prescription. You should have repeat labs to monitor kidney function later this week and follow up with primary care. Please avoid NSAIDs - ibuprofen/aleve/motrin while on this. Your thyroid function testing will need repeated in 4-6 weeks to see if you need your Synthroid increased but your T4 was normal and you should continue current dose for now. You are being sent on aspirin to prevent blood clots. After completing the course you should remain on baby aspirin daily given your history of stroke as noted by cardiology. You should discuss about starting statin therapy for prevention as well but this can be discussed in follow up. Pending Studies at Discharge: No Stand-Alone Forms: My [facility] Medications and DC Order Prescriptions: New aspirin 81 mg tablet,delayed release (DR/EC) 81 mg PO BID 30 Days Qty: 60 0RF acetaminophen 500 mg tablet 1,000 mg PO Q8 21 Days Qty: 126 0RF cefadroxil 500 mg capsule 500 mg PO BID 14 Days Qty: 28 0RF docusate sodium 100 mg Capsule 100 mg PO BID Qty: 20 0RF oxycodone 5 mg tablet 5 - 10 mg PO Q6H PRN (Reason: pain) Qty: 30 0RF Rx Instructions: ongoing therapy, supervising dr suzette vinson. max 6 tabs in 24 hours. date of surgery 01/21/24 losartan 100 mg tablet 100 mg PO DAILY Qty: 30 0RF Continued calcium carbonate 600 mg calcium (1,500 mg) tablet 600 mg PO QAM levothyroxine 100 mcg capsule 100 mcg PO QAM metoprolol succinate 50 mg tablet extended release 24 hr 50 mg PO BID Qty: 180 3RF citalopram 10 mg tablet 20 mg PO HS cholecalciferol (vitamin D3) [Vitamin D3] 125 mcg (5,000 unit) Tablet 125 mcg PO QAM Held losartan-hydrochlorothiazide 100-25 mg tablet 1 tab PO DAILY Qty: 30 11RF Hold Instructions: Resume on 01/27/24. Discontinued acetaminophen [Tylenol Extra Strength] 500 mg Tablet 500 mg PO HS Admission Data Admit Date/Time: 01/21/24 11:39 Attending Provider: Alan Vinson Admit Provider: Alan Vinson Primary Care Provider: Nicole Romo Other Providers: [facility]; Inder Jackman; Karen Martinez; Enrico Juan; Ned Calvillo; Alan Tse; Octavio Gamez; Marianne Chambers; Alana Blake; Holly Auguste; Vikas Givens; Danny Castillo; Sole King; Carl Neri; Enrico Warner; Harshal Rosado; Haydee Hung; Maureen Gramajo; Jason Adam; Chiqui Haney; Boyd Richardson; Reese Gabriel; Aroldo Kruse; Makenna Doherty; Milly Mena; Carlos Smith; Tatyana Abreu; Ned Zamora; Alan Bardales; Rebeca Luna
[2024-01-22 07:40] LABS: T4 Free Thyroxine 1.11 ng/dl (0.61-1.60)
--- NOTE | 2024-01-22 08:22 | Hospitalist Progress Note ---
Date of Service January 22, 2024 Assessment & Plan (1) Arthritis of right knee: Plan: s/p Right Total Knee Arthroplasty(Right) utilizing [employer] 2 patient-matched total knee arthroplasty size femur 4 tibia 3 poly 11 patella 29 sofieValarie Cleary, DO 01/20 EBL 5cc Pain control, bowel regimen per primary service DVT proph: ASA 81mg BID PT/OT consults ordered 01/21 WBC wnl, afebrile BUN/Cr elevated to 33/1.59, home HCTZ/losartan on hold for this morning. * Na 134 on am labs, would consider holding her HCTZ component of BP meds, eric in setting of elevation in Cr/borderline compared to priors. * Could consider holding home losartan for day, monitoring BPs and resuming tomorrow w/ close f/u * Discussed with primary and would have her HOLD her HCTZ at discharge until seen in follow up and monitor BP. WOuld hold off losartan until tomorrow to resume. Continue metoprolol 50mg BID in meantime and consideration to increase further if BP allows * TSH checked, elevatd to 7, t4 wnl. added t3 to labs and discussed would have f/u with PCP about repeat TFT in 4-6 weeks. * Resumed requip 0.25mg HS - consider checking ferritin in f/u for underlying RLS reported by patient PT/OT consults pending, planning for dc home w/ HHPT and staying with her daughter. (2) CAD (coronary artery disease): Plan: follows with [facility] cardiology, recently seen by Dr Santiago Continues on metoprolol BID Usual losartan increased to 100mg daily, HCTZ remains 25mg daily per most recent cardiology note Placed HCTZ/losartan on hold, elevated Cr to 1.5 but making good urine. Discussed AVOIDING NSAIDs, ortho to cancel celebrex at dc. Stopped further toradol. BP meds asa above ASA BID for DVT proph as above, should be on daily but had not been taking per recent cards note - outpt f/u for recent lipid panel TRG 128, chol 158, LDL 81, HDL 51 as should be on statin therapy given hx cryptogenic stroke per cards note. can be discussed in f/u Telemetry monitoring post-op NSR/sinus tanya 50-60s, no CP reported (3) HTN (hypertension): Plan: BP stable post-op in settingof pain 178/67 continue metoprolol 50mg BID holding AM hCTZ/losartan as above and to hold her HCTZ at dc given hyponatremia and to monitor BPs/resume losartan tomorrow w/ close monitoring of labs as outlined above (4) Hypothyroidism: Plan: s/p thyroidectomy most recent TSH wnl earlier this month Repeated TSH given Na level/fatigue -- 7 but normal t4. t3 added to labs for completeness but suspect elevation 2nd to reactive from stress/surgery but should have repeat TFT outpatient (5) Cryptogenic stroke: Plan: as above, noted old CVA per cards note. should be on ASA/statin as outlined (6) Carotid aneurysm, left: Plan: noted during admission in 2021 -- outpt f/u PCP Plan Thank you for allowing hospitalist service participate in the care of Ms Mora. Please call with any questions/concerns. Admission and Anticipated Discharge Date Admission Date: January 21, 2024 Supervising Physician Co-Signing Physician Notes The patient was not seen by me. The chart was reviewed. Case discussed with LATRICE Cooper. Agree with assessment and plan Subjective Evaluated this morning, doing well. Reports some jerking motions this morning, however reports she usually takes requip at night and didn't get that last night. Also reported some issues with word finding however not confused and alert/oriented for myself. Discussed resuming requip - she notes she doesn't think she will be here. Pain controlled, no chest pain/shortness of breath, abdominal pain, nausea or vomiting. Drinking more water, reports making good urine. Discussed avoiding NSAIDs and holding her HCTZ at discharge as well as repeat BMP later this week with PCP and resuming losartan for tomorrow. Physical Exam Physical Exam: General: 88yo female sitting up in bed, NAD, appears well Head atraumatic, normocephalic, mmm, trachea midline, prior thyroidectomy scar noted Resp: even/unlabored , no w/c/r, on room air CV: RRR/slightly tanya to 50s-60s at times, no significant m/r/g, no pitting edema/calf tenderness, pulses palpable, toes mobile GI: +BS, soft/NT MSK/Neuro: dressing to RIGHT knee c/d/i, NAHUN wrap in place, , drain functioning, bloody output, toes mobile, sensation intact, cap refill wnl, SCDs in place Psych: AOx3, cooperative with exam Results & Data Results & Data Vital Signs (Past 12 Hours) Vital Signs Temp Pulse Pulse Resp BP Pulse Ox O2 Del Method 01/22/24 07:46 36.3 C L 67 18 178/67 H 96 Room Air 01/22/24 07:17 61 01/22/24 04:12 36.7 C 52 L 18 138/69 90 Room Air 01/22/24 00:34 61 01/21/24 23:31 36.7 C 76 18 177/80 H 91 Room Air Laboratory Results 01/22/24 01/21/24 01/21/24 Range/Units 05:52 17:27 17:22 WBC 6.60 (4.8-10.8) K/ul RBC 3.66 L (4.20-5.40) M/uL Hgb 11.3 L (12.0-16.0) g/dl Hct 33.8 L (37.0-47.0) % MCV 92.3 (80.0-100.0) fL MCH 30.9 (25.0-34.0) pg MCHC 33.4 (32.0-36.0) g/dL RDW Std Deviation 43.7 (36.4-46.3) fL RDW Coeff of Nathan 12.9 (11.5-14.5) % Plt Count 223 (130-400) K/uL MPV 10.9 (9.4-12.4) fL Immature Gran % (Auto) 0.3 % Neut % (Auto) 71.7 % Lymph % (Auto) 18.0 % [place] % (Auto) 8.0 % Eos % (Auto) 1.5 % Baso % (Auto) 0.5 % Neut # (Auto) 4.73 (1.40-6.50) K/uL Lymph # (Auto) 1.19 L (1.20-3.40) K/uL [place] # (Auto) 0.53 (0.11-0.59) K/uL Eos # (Auto) 0.10 (0.00-0.50) K/uL Baso # (Auto) 0.03 (0.00-0.20) K/uL Immature Gran # (Auto) 0.02 (0.01-0.20) K/uL Sodium 134 L 134 L (136-145) mmol/L Potassium 3.5 3.5 (3.5-5.1) mmol/L Chloride 102 100 (98-107) mmol/L Carbon Dioxide 27 28 (21-32) mmol/L Anion Gap 5 6 (3-11) BUN 33 H 31 H (6-23) mg/dl Creatinine 1.59 H 1.44 H (0.6-1.2) mg/dl Est Cr Clr Drug Dosing 27.2 30.1 ml/min Est GFR ( Amer) 33.5 37.7 ml/min Est GFR (Non-Af Amer) 28.9 32.6 ml/min BUN/Creatinine Ratio 20.8 H 21.5 H (10-20) Glucose 87 97 (70-99(Fasting)) mg/dl Calcium 7.6 L 8.3 L (8.6-10.3) mg/dl Magnesium 1.9 2.0 (1.7-2.4) mg/dl Total Bilirubin 0.6 (0.2-1.0) mg/dl AST 18 (13-39) U/L ALT 7 (7-52) U/L Alkaline Phosphatase 52 (34-104) U/L Total Protein 6.0 (6.0-8.3) gm/dl Albumin 3.2 L (3.4-5.0) gm/dl Globulin 2.8 (2.5-4.0) gm/dl Albumin/Globulin Ratio 1.1 (0.9-2) TSH 7.093 H (0.300-4.500) uIu/ml Free T4 1.11 (0.61-1.60) ng/dl Free T3 Pending Diagnostic Findings Knee X-Ray 01/21/24 11:39 XR knee RT 1 or 2V routine CLINICAL HISTORY: Surgical Post Op TECHNIQUE: 2 views of the right knee were obtained. Comparison: Comparison is made to knee radiographs 09/25/2022 FINDINGS: Patient is status post total knee arthroplasty with expected postsurgical changes including soft tissue swelling and subcutaneous emphysema. No periarticular lucency or hardware fracture is seen. IMPRESSION: Expected postoperative appearance status post placement of total knee ar throplasty. ACT 112: Negative or not required by law. Electronically signed by: Naif James M.D. 01/21/2024 12:27 PM PG Care Time/CCT Total # of Minutes Spent Total Time Spent with Patient: Total time spent is greater than 50% in coordination of care (as documented) at patient's floor/unit and/or counseling patient: Coding Level of Care Code 16495 SUB INP/OBS CARE 2/35MIN Diagnoses Arthritis of right knee M17.11 Coronary artery disease involving [place] coronary artery of [place] heart without angina pectoris I25.10 Associated angina: without angina Coronary Disease-Associated Artery/Lesion type: [place] artery [place] vs. transplanted heart: [place] heart Primary hypertension I10 Hypertension type: primary hypertension Hypothyroidism E03.9 Cryptogenic stroke I63.9 Carotid aneurysm, left I72.0 (2) CAD (coronary artery disease) Associated angina: without angina Coronary Disease-Associated Artery/Lesion type: [place] artery [place] vs. transplanted heart: [place] heart Qualified Code(s): I25.10 - Atherosclerotic heart disease of [place] coronary artery without angina pectoris (3) HTN (hypertension) Hypertension type: primary hypertension Qualified Code(s): I10 - Essential (primary) hypertension
[2024-01-22] MEDS: LEVOTHYROXINE SODIUM 100 MCG TABLET PO SCH (08:38)
[2024-01-22] MEDS: CALCIUM CARBONATE 1250MG TAB PO SCH (08:39)
[2024-01-22] MEDS: MULTIVITAMIN TAB PO SCH (08:39)
[2024-01-22] MEDS: CHOLECALCIFEROL 125 MCG (5,000 UNITS) TAB PO SCH (08:39)
[2024-01-22] MEDS ORDERED: LOSARTAN/HCTZ 50/12.5MG TAB PO SCH (09:00)
[2024-01-22] MEDS: rOPINIRole HCL 0.25 MG TABLET PO ONE (10:45)
[2024-01-22] MEDS: LOSARTAN POTASSIUM 50 MG TAB PO SCH (10:45)
--- NOTE | 2024-01-22 11:14 | CT Scan Report ---
CT head/brain wo con CLINICAL HISTORY: blurry vision, elevated BP Technique: Contiguous axial CT images of the head were acquired from the base of the skull to the andie augusto without intravenous contrast administration. Images were viewed in brain, [facility]. Automated dose lowering techniques and/or adjustment according to patient size were utilized for this exam. Comparison: Comparison is made to CTA head 11/05/2021 Findings: The ventricles, basal cisterns, and cerebral sulci are normal. There is no acute intracranial hemorrh age or evidence of acute territorial infarction. Neither mass effect, shift of the midline structures , nor abnormal extra-axial fluid collections are shown. Asymmetric prominence of the left temporal h orn is again seen which may represent old infarct, this is unchanged from prior exam. Imaged portions of the paranasal sinuses and mastoid air cells are clear. The orbits appear normal. There are no acute fractures of the calvaria or scalp swelling. Impression: No acute intracranial hemorrhage, no evidence of acute territorial infarction or other acute intracra nial disease process. ACT 112: Negative or not required by law. Electronically signed by: Naif James M.D. 01/22/2024 11:13 AM
[2024-01-22] MEDS: hydrALAZINE HCL 20 MG/ML VIAL IV PRN (15:02)
[2024-01-22] MEDS: ONDANSETRON INJ 2 MG/ML 2 ML VIAL IV PRN (17:38)
[2024-01-22] MEDS: rOPINIRole HCL 0.25 MG TABLET PO SCH (20:26)
[2024-01-22] MEDS ORDERED: CeleBREX 200 MG CAP PO SCH (21:00)
[2024-01-22] MEDS: LORazepam 0.25 MG in SYRINGE 0.125 ML IV STA (22:37)
[2024-01-22] MEDS: oxyCODONE HCL IR 5 MG TAB (IMMEDIATE RELEASE) PO PRN (22:48)
[2024-01-23 05:33] LABS: BUN Creatinine Ratio 21.7 (10-20); Calcium 7.9 mg/dl (8.6-10.3); Creatinine Clr Calc Pharmacy 30.3 ml/min; Est GFR (African American) 38.1 ml/min; Est GFR (Non-African American) 32.8 ml/min; Potassium 3.7 mmol/L (3.5-5.1)
--- NOTE | 2024-01-23 06:53 | Orthopedic Progress Note ---
Date of Service January 23, 2024 Assessment & Plan (1) History of total right knee replacement: Plan: POD #2 s/p Right TKA pt/ot PT recommends rehab vs SNF. CM consulted, awaiting authorization/bed availability. will see how she does today in PT she also felt a little dizzy/blurred vision yesterday morning, Head CT showing no acute findings, cont to observe dvt proph with JOCY/SCD/ASA can remove julia wrap today/d/c hemovac. Admission and Anticipated Discharge Date Admission Date: January 21, 2024 Subjective POD #2 s/p Right TKA Review of Systems Review of Systems: All systems reviewed & are unremarkable except as noted in HPI & below Constitutional: no fever and no chills Respiratory: no cough and no dyspnea Cardiovascular: no chest pain, no dyspnea and no orthopnea Gastrointestinal: no abdominal pain, no nausea and no vomiting Physical Exam Physical Exam: Vital Signs Temp 36.2 C L 01/23/24 03:46 Pulse 65 01/23/24 03:46 Resp 18 01/23/24 03:46 BP 159/93 H 01/23/24 03:46 Pulse Ox 96 01/23/24 03:46 O2 Del Method Nasal Cannula 01/23/24 03:46 O2 Flow Rate 2 01/23/24 03:46 Intake & Output 01/22/24 01/22/24 01/23/24 06:59 18:59 06:59 Intake Total 1600 / 2600 120 / 480 360 / 480 Output Total 80 / 80 Balance 1600 / 2555 120 / 400 280 / 400 Intake: IV 1400 / 1500 Sodium Chlorid e 0.9% 1,000 ml @ 1300 / 1300 100 mls/hr IV .Q10H ARIELLA Rx#: [id number] Tranexamic Aci d / 0.7% NaCl 1, 100 / 100 000 mg In 100 ml @ 1 MG/KG/HR 8 .4 mls/hr IV . [id number] ONE Rx#: [id number] Oral 200 / 200 120 / 480 360 / 480 Output: Drain Output 80 / 80 Right Knee Hem ovac 80 / 80 Other: # Unmeasured Voi ds 1 2 1 Constitutional: WD/WN, vitals as above no acute distress Musculoskeletal: Right leg: NVDI, calf SNT, negative tammy sign. DP palpable, able to wiggle toes/ankle movement without difficulty. dressing clean dry and intact. Results & Data Vital Signs (Past 12 Hours) Vital Signs Temp Pulse Pulse Resp BP BP Pulse Ox 01/23/24 03:46 36.2 C L 65 18 159/93 H 96 01/22/24 23:32 64 01/22/24 23:10 36.7 C 63 18 160/70 H 94 01/22/24 22:00 01/22/24 21:51 36.5 C 64 20 158/80 H 93 01/22/24 20:32 36.6 C 70 18 159/60 H 91 01/22/24 20:16 70 152/56 H O2 Del Method O2 Flow Rate 01/23/24 03:46 Nasal Cannula 2 01/22/24 23:32 01/22/24 23:10 Nasal Cannula 3 01/22/24 22:00 Nasal Cannula 3 01/22/24 21:51 Nasal Cannula 3 01/22/24 20:32 Room Air 01/22/24 20:16 Laboratory Results Laboratory Results WBC 6.60 K/ul (4.8-10.8) 01/22/24 05:52 RBC 3.66 M/uL (4.20-5.40) L 01/22/24 05:52 Hgb 11.3 g/dl (12.0-16.0) L 01/22/24 05:52 Hct 33.8 % (37.0-47.0) L 01/22/24 05:52 MCV 92.3 fL (80.0-100.0) 01/22/24 05:52 MCH 30.9 pg (25.0-34.0) 01/22/24 05:52 MCHC 33.4 g/dL (32.0-36.0) 01/22/24 05:52 RDW Std Deviation 43.7 fL (36.4-46.3) 01/22/24 05:52 RDW Coeff of Nathan 12.9 % (11.5-14.5) 01/22/24 05:52 Plt Count 223 K/uL (130-400) 01/22/24 05:52 MPV 10.9 fL (9.4-12.4) 01/22/24 05:52 Immature Gran % (Auto) 0.3 % 01/22/24 05:52 Neut % (Auto) 71.7 % 01/22/24 05:52 Lymph % (Auto) 18.0 % 01/22/24 05:52 [place] % (Auto) 8.0 % 01/22/24 05:52 Eos % (Auto) 1.5 % 01/22/24 05:52 Baso % (Auto) 0.5 % 01/22/24 05:52 Neut # (Auto) 4.73 K/uL (1.40-6.50) 01/22/24 05:52 Lymph # (Auto) 1.19 K/uL (1.20-3.40) L 01/22/24 05:52 [place] # (Auto) 0.53 K/uL (0.11-0.59) 01/22/24 05:52 Eos # (Auto) 0.10 K/uL (0.00-0.50) 01/22/24 05:52 Baso # (Auto) 0.03 K/uL (0.00-0.20) 01/22/24 05:52 Immature Gran # (Auto) 0.02 K/uL (0.01-0.20) 01/22/24 05:52 Sodium 134 mmol/L (136-145) L 01/23/24 04:48 Potassium 3.7 mmol/L (3.5-5.1) 01/23/24 04:48 Chloride 101 mmol/L (98-107) 01/23/24 04:48 Carbon Dioxide 29 mmol/L (21-32) 01/23/24 04:48 Anion Gap 4 (3-11) 01/23/24 04:48 BUN 31 mg/dl (6-23) H 01/23/24 04:48 Creatinine 1.43 mg/dl (0.6-1.2) H 01/23/24 04:48 Est Cr Clr Drug Dosing 30.3 ml/min 01/23/24 04:48 Est GFR ( Amer) 38.1 ml/min 01/23/24 04:48 Est GFR (Non-Af Amer) 32.8 ml/min 01/23/24 04:48 BUN/Creatinine Ratio 21.7 (10-20) H 01/23/24 04:48 Glucose 102 mg/dl (70-99(Fasting)) H 01/23/24 04:48 Calcium 7.9 mg/dl (8.6-10.3) L 01/23/24 04:48 Magnesium 2.0 mg/dl (1.7-2.4) 01/23/24 04:48 Total Bilirubin 0.6 mg/dl (0.2-1.0) 01/22/24 05:52 AST 18 U/L (13-39) 01/22/24 05:52 ALT 7 U/L (7-52) 01/22/24 05:52 Alkaline Phosphatase 52 U/L (34-104) 01/22/24 05:52 Total Protein 6.0 gm/dl (6.0-8.3) 01/22/24 05:52 Albumin 3.2 gm/dl (3.4-5.0) L 01/22/24 05:52 Globulin 2.8 gm/dl (2.5-4.0) 01/22/24 05:52 Albumin/Globulin Ratio 1.1 (0.9-2) 01/22/24 05:52 TSH 7.093 uIu/ml (0.300-4.500) H 01/22/24 05:52 Free T4 1.11 ng/dl (0.61-1.60) 01/22/24 05:52 Free T3 2.60 pg/ml (2.3-4.2) 01/21/24 17:27 Impressions Knee X-Ray 01/21/24 11:39 XR knee RT 1 or 2V routine CLINICAL HISTORY: Surgical Post Op TECHNIQUE: 2 views of the right knee were obtained. Comparison: Comparison is made to knee radiographs 09/25/2022 FINDINGS: Patient is status post total knee arthroplasty with expected postsurgical changes including soft tissue swelling and subcutaneous emphysema. No periarticular lucency or hardware fracture is seen. IMPRESSION: Expected postoperative appearance status post placement of total knee arthroplasty. ACT 112: Negative or not required by law. Electronically signed by: Naif James M.D. 01/21/2024 12:[address] 01/22/24 09:53 CT head/brain wo con CLINICAL HISTORY: blurry vision, elevated BP Technique: Contiguous axial CT images of the head were acquired from the base of the skull to the vertex without intravenous contrast administration. Images were viewed in brain, subdural and bone windows. Automated dose lowering techniques and/or adjustment according to patient size were utilized for this exam. Comparison: Comparison is made to CTA head 11/05/2021 Findings: The ventricles, basal cisterns, and cerebral sulci are normal. There is no acute intracranial hemorrhage or evidence of acute territorial infarction. Neither mass effect, shift of the midline structures, nor abnormal extra-axial fluid collections are shown. Asymmetric prominence of the left temporal horn is again seen which may represent old infarct, this is unchanged from prior exam. Imaged portions of the paranasal sinuses and mastoid air cells are clear. The orbits appear normal. There are no acute fractures of the calvaria or scalp swelling. Impression: No acute intracranial hemorrhage, no evidence of acute territorial infarction or other acute intracranial disease process. ACT 112: Negative or not required by law. Electronically signed by: Naif James M.D. 01/22/2024 11:13 AM
--- NOTE | 2024-01-23 08:12 | XRay Report ---
XR chest 1V portable CLINICAL HISTORY: new oxygen requirement COMPARISON STUDY: Chest radiograph December 09, 2023. FINDINGS: Upper mediastinal widening is unchanged and likely due to vessels. A large hiatal hernia is noted. There is no pneumothorax or pleural effusion. Cardiomediastinal silhouette is stable. There i s no evidence for overt pulmonary edema. IMPRESSION: 1. No acute cardiopulmonary findings. 2. Hiatal hernia. ACT 112: Negative or not required by law. Electronically signed by: Oscar Villatoro M.D. 01/23/2024 8:11 AM
--- NOTE | 2024-01-23 08:21 | Hospitalist Progress Note ---
Date of Service January 23, 2024 Assessment & Plan (1) Arthritis of right knee: Plan: s/p Right Total Knee Arthroplasty(Right) utilizing [employer] journey 2 patient-matched total knee arthroplasty size femur 4 tibia 3 poly 11 patella 29 heather Cleary, DO 01/20 EBL 5cc Pain control, bowel regimen per primary service DVT proph: ASA 81mg BID PT/OT consulted and rehab recommended, CM following/referrals sent WBC wnl, afebrile Holding her home HCTZ given hyponatremia/dizziness reported yesterday. None for today. Cr improved and remains on her losartan/metoprolol BID DId have reports of some blurry vision day prior w/ word finding, nonfocal but hx CVA and obtained CT head which was without acute finding. No further symptoms of such Did have episode of reports of shortness of breath overnight and placed on supplemental O2. No hypoxia noted. CXR obtained overnight team w/o acute finding Was provided ativan 0.25mg x1 w/ good results, suspect anxiety large factor. Titrated to room air today, no SOB but ongoing anxiety at times and reported great sleep/calm down w/ ativan overnight and discussed 0.25mg PO BID prn while inpatient and could be considered to continue at discharge. Dispo: per primary service, ok for dc to rehab when bed available. At dc, would continue to hold her HCTZ at discharge given above and discuss in follow up. Consideration for continued low dose ativan as needed for anxiety 0.25mg BID as outlined and f/u discussion w/ PCP Please call with any questions/concerns. (2) CAD (coronary artery disease): Plan: [place] [facility] [place], recently seen by Dr Santiago Continues on metoprolol BID Losartan resumed per discussion w/ supervising provider on01/21 but held HCTZ. Takes for HTN and not edema/no hx CHF and would avoid. New rx for losartan alone provided. Did get several doses hydralazine yesterday but none today BP 161/77 in setting of pain control -- did get 1gm tylenol, one dose oxycodone overnight ASA BID for DVT proph as above but prior discussed w/ patient and daughter about need to continue daily after done w/ six weeks given hx CVA. F/u cardiology/PCP about statin. Did get CM to arrange f/u appt Dr Kendall next week per discussion w/ daughter last evening Has been NSR/SB on monitor, no arrhythmia. No CP reported Would avoid NSAIDs -- placed further Toradol and Celebrex on hold (ortho not going to send celebrex at dc per discussion day prior) (3) HTN (hypertension): Plan: BP stable post-op in setting of pain and had not taking any oxycodone until overnight last night. Ongoing pain control as above/per primary COntinues on home metoprolol BID Losartan resumed, hydralazine available as outlined and has not needed for today Consideration to continue to hold HCTZ at discharge and f/u discussion w/ PCP/cardiology in follow up if needing vs additional medication not diuretic (4) Hypothyroidism: Plan: s/p thyroidectomy most recent TSH wnl earlier this month however repeated and was ~7. T4/t3 wnl and as discussed likely stress from surgery/reactive and should have repeat TFT 4-6 wks w/ PCP (5) Cryptogenic stroke: Plan: as above, noted old CVA per cards note. should be on ASA/statin as outlined (6) Carotid aneurysm, left: Plan: noted during admission in 2021 -- outpt f/u PCP (7) CKD (chronic kidney disease): Plan: leti on ckd 3 suspected 2nd to ongoing NSAID use for pain and increase in baseline losartan/HCTZ prior to surgery. Pre-op labs obtained prior to changes and Cr was 1.44 directly post-op w/ prior ~1.1-1.27 in system Cr on repeat to 1.59 and losartan placed on hold w/ HCTZ initially but resumed losartan and continued to hold HCTZ for BP control BUN/Cr improved on repeat to 31/1.43 and making good urine No hypotension noted Further NSAIDs placed on hold, would avoid in future. Ortho not to continue celebrex at discharge Renal dose meds/avoid nephrotoxins As above, HCTZ placed on hold and would continue to hold at discharge would recommend repeating her labs in next 2-3 days to ensure staying stable, consideration for f/u with nephrology if any ongoing issues. Plan Thank you for allowing hospitalist service participate in the care of Ms Mora. Medically stable for dc to rehab when bed available. Would continue to hold her HCTZ at discharge until seen in f/u and check BPs at rehab and monitoring of her renal function periodically PCP appt made for next week w/ Dr Kendall as requested/discussed with daughter last night Can consider low dose ativan BID prn for anxiety symptoms and would recommend continued discussions in f/u with PCP. Remains on celexa 20mg HS in meantime. Hospitalist service will sign off at this time. Please call with any questions/concerns. Admission and Anticipated Discharge Date Admission Date: January 21, 2024 Supervising Physician Co-Signing Physician Notes The patient was not seen by me. The chart was reviewed. Case discussed with LATRICE Cooper. Agree with assessment and plan Subjective Evaluated this afternoon following lunch. Had been placed on supplemental O2 overnight for reported shortness of breath. CXR reviewed and negative, titrated to room air 93% and lungs clear but diminished on exam. No cough/sputum production. When discussing concerns over anxiety, she reports she did have good effect w/ medication overnight (had been provided ativan IV 0.25mg x1) and discussed stress of surgery and needing rehab as unexpected and discussed will add BID prn. May help w/ slight tremor as well. She reports she slept the best she ever slept last night. Good appetite, no fever/chills. No further blurry vision or word finding difficulty. CT head negative yesterday, remains on DVT prophylaxis. She reports pain to her knee not well controlled, just being provided 1gm tylenol PO. Oxycodone available as needed. Awaiting placement at rehab at this time. Physical Exam Physical Exam: General: 88yo female sitting up in bed, NAD, appears well but reporting some pain to her knee, just getting tylenol by nursing Head atraumatic, normocephalic, mmm, trachea midline, prior thyroidectomy scar noted Resp: even/unlabored , slightly diminished in the bases but no w/c/r, on room air CV: RRR/slightly tanya to 50s-60s at times on telemetry, no significant m/r/g, no pitting edema/calf tenderness, pulses palpable, toes mobile GI: +BS, soft/NT MSK/Neuro: dressing to RIGHT knee c/d/i, NAHUN wrap in place, , drain functioning, bloody output, toes mobile, sensation intact, cap refill wnl, SCDs in place, calves nontender Psych: AOx3, cooperative with exam Results & Data Results & Data Vital Signs (Past 12 Hours) Vital Signs Temp Pulse Pulse Resp BP BP Pulse Ox 01/23/24 07:59 36.4 C L 62 18 159/79 H 93 01/23/24 03:46 36.2 C L 65 18 159/93 H 96 01/22/24 23:32 64 01/22/24 23:10 36.7 C 63 18 160/70 H 94 01/22/24 22:00 01/22/24 21:51 36.5 C 64 20 158/80 H 93 01/22/24 20:32 36.6 C 70 18 159/60 H 91 O2 Del Method O2 Flow Rate 01/23/24 07:59 Nasal Cannula 2 01/23/24 03:46 Nasal Cannula 2 01/22/24 23:32 01/22/24 23:10 Nasal Cannula 3 01/22/24 22:00 Nasal Cannula 3 01/22/24 21:51 Nasal Cannula 3 01/22/24 20:32 Room Air Laboratory Results 01/23/24 01/21/24 Range/Units 04:48 17:27 Sodium 134 L (136-145) mmol/L Potassium 3.7 (3.5-5.1) mmol/L Chloride 101 (98-107) mmol/L Carbon Dioxide 29 (21-32) mmol/L Anion Gap 4 (3-11) BUN 31 H (6-23) mg/dl Creatinine 1.43 H (0.6-1.2) mg/dl Est Cr Clr Drug Dosing 30.3 ml/min Est GFR ( Amer) 38.1 ml/min Est GFR (Non-Af Amer) 32.8 ml/min BUN/Creatinine Ratio 21.7 H (10-20) Glucose 102 H (70-99(Fasting)) mg/dl Calcium 7.9 L (8.6-10.3) mg/dl Magnesium 2.0 (1.7-2.4) mg/dl Free T3 2.60 (2.3-4.2) pg/ml Diagnostic Findings Head CT 01/22/24 09:53 CT head/brain wo con CLINICAL HISTORY: blurry vision, elevated BP Technique: Contiguous axial CT images of the head were acquired from the base of the skull to the vertex without intravenous contrast administration. Images were viewed in brain, subdural and bone windows. Automated dose lowering techniques and/or adjustment according to patient size were utilized for this exam. Comparison: Comparison is made to CTA head 11/05/2021 Findings: The ventricles, basal cisterns, and cerebral sulci are normal. There is no acute intracranial hemorrhage or evidence of acute territorial infarction. Neither mass effect, shift of the midline structures, nor abnormal extra-axial fluid collections are shown. Asymmetric prominence of the left temporal horn is again seen which may represent old infarct, this is unchanged from prior exam. Imaged portions of the paranasal sinuses and mastoid air cells are clear. The orbits appear normal. There are no acute fractures of the calvaria or scalp swelling. Impression: No acute intracranial hemorrhage, no evidence of acute territorial infarction or other acute intracranial disease process. ACT 112: Negative or not required by law. Electronically signed by: Naif James M.D. 01/22/2024 11:13 AM Chest X-Ray 01/22/24 22:15 XR chest 1V portable CLINICAL HISTORY: new oxygen requirement COMPARISON STUDY: Chest radiograph December 09, 2023. FINDINGS: Upper mediastinal widening is unchanged and likely due to vessels. A large hiatal hernia is noted. There is no pneumothorax or pleural effusion. Cardiomediastinal silhouette is stable. There is no evidence for overt pulmonary edema. IMPRESSION: 1. No acute cardiopulmonary findings. 2. Hiatal hernia. ACT 112: Negative or not required by law. Electronically signed by: Oscar Villatoro M.D. 01/23/2024 8:11 AM PG Care Time/CCT Total # of Minutes Spent Total Time Spent with Patient: Total time spent is greater than 50% in coordination of care (as documented) at patient's floor/unit and/or counseling patient: Coding Level of Care Code 96990 SUB INP/OBS CARE 3/50MIN Diagnoses Arthritis of right knee M17.11 Coronary artery disease involving [place] coronary artery of [place] heart without angina pectoris I25.10 Associated angina: without angina Coronary Disease-Associated Artery/Lesion type: [place] artery [place] vs. transplanted heart: [place] heart Primary hypertension I10 Hypertension type: primary hypertension Hypothyroidism E03.9 Cryptogenic stroke I63.9 Carotid aneurysm, left I72.0 CKD (chronic kidney disease) N18.9 (2) CAD (coronary artery disease) Associated angina: without angina Coronary Disease-Associated Artery/Lesion type: [place] artery [place] vs. transplanted heart: [place] heart Qualified Code(s): I25.10 - Atherosclerotic heart disease of [place] coronary artery without angina pectoris (3) HTN (hypertension) Hypertension type: primary hypertension Qualified Code(s): I10 - Essential (primary) hypertension
[2024-01-23] MEDS: FAMOTIDINE 20 MG TAB PO SCH (09:15)
[2024-01-23] MEDS: LORazepam 0.5 MG TAB PO PRN (20:20)
[2024-01-24] MEDS: hydrALAZINE HCL 20 MG/ML VIAL IV PRN (04:13)
--- NOTE | 2024-01-24 07:32 | Orthopedic Progress Note ---
Date of Service January 24, 2024 Assessment & Plan (1) History of total right knee replacement: Plan: POD #3 s/p Right TKA pt/ot PT recommends rehab vs SNF, she is approved for [employer] and will plan on family transportation after lunch today blurred vision has resolved, ativan seems to be helping as well, will add rx for po ativan prn for discharge dvt proph with JOCY/SCD/ASA Admission and Anticipated Discharge Date Admission Date: January 23, 2024 Subjective POD #3 s/p Right TKA Review of Systems Review of Systems: All systems reviewed & are unremarkable except as noted in HPI & below Constitutional: no fever and no chills Respiratory: no cough and no dyspnea Cardiovascular: no chest pain, no dyspnea and no orthopnea Gastrointestinal: no abdominal pain, no nausea and no vomiting Physical Exam Physical Exam: Vital Signs Temp 36.7 C 01/24/24 03:36 Pulse 65 01/24/24 05:51 Resp 18 01/24/24 03:36 BP 164/67 H 01/24/24 05:51 Pulse Ox 96 01/24/24 03:36 O2 Del Method Room Air 01/24/24 03:36 O2 Flow Rate 2 01/23/24 19:52 Intake & Output 01/23/24 01/24/24 01/24/24 18:59 06:59 18:59 Intake Total 460 / 900 440 / 900 Balance 460 / 900 440 / 900 Weight 83.6 kg Intake: Oral 460 / 900 440 / 900 Other: Weight Measureme nt Method Built in [facility] Constitutional: WD/WN, vitals as above no acute distress Musculoskeletal: Right leg: NVDI, calf SNT, negative tammy sign. DP palpable, able to wiggle toes/ankle movement without difficulty. dressing clean dry and intact. expected post-operative bruising noted. Results & Data Vital Signs (Past 12 Hours) Vital Signs Temp Pulse Pulse Resp BP BP Pulse Ox 01/24/24 05:51 65 164/67 H 01/24/24 04:48 64 181/72 H 01/24/24 03:36 36.7 C 67 18 191/74 H 96 01/23/24 23:55 36.6 C 56 L 18 132/69 97 01/23/24 22:00 67 01/23/24 19:52 36.9 C 67 18 164/70 H 92 O2 Del Method O2 Flow Rate 01/24/24 05:51 01/24/24 04:48 01/24/24 03:36 Room Air 01/23/24 23:55 Room Air 01/23/24 22:00 01/23/24 19:52 Nasal Cannula 2 Laboratory Results Laboratory Results WBC 6.60 K/ul (4.8-10.8) 01/22/24 05:52 RBC 3.66 M/uL (4.20-5.40) L 01/22/24 05:52 Hgb 11.3 g/dl (12.0-16.0) L 01/22/24 05:52 Hct 33.8 % (37.0-47.0) L 01/22/24 05:52 MCV 92.3 fL (80.0-100.0) 01/22/24 05:52 MCH 30.9 pg (25.0-34.0) 01/22/24 05:52 MCHC 33.4 g/dL (32.0-36.0) 01/22/24 05:52 RDW Std Deviation 43.7 fL (36.4-46.3) 01/22/24 05:52 RDW Coeff of Nathan 12.9 % (11.5-14.5) 01/22/24 05:52 Plt Count 223 K/uL (130-400) 01/22/24 05:52 MPV 10.9 fL (9.4-12.4) 01/22/24 05:52 Immature Gran % (Auto) 0.3 % 01/22/24 05:52 Neut % (Auto) 71.7 % 01/22/24 05:52 Lymph % (Auto) 18.0 % 01/22/24 05:52 [place] % (Auto) 8.0 % 01/22/24 05:52 Eos % (Auto) 1.5 % 01/22/24 05:52 Baso % (Auto) 0.5 % 01/22/24 05:52 Neut # (Auto) 4.73 K/uL (1.40-6.50) 01/22/24 05:52 Lymph # (Auto) 1.19 K/uL (1.20-3.40) L 01/22/24 05:52 [place] # (Auto) 0.53 K/uL (0.11-0.59) 01/22/24 05:52 Eos # (Auto) 0.10 K/uL (0.00-0.50) 01/22/24 05:52 Baso # (Auto) 0.03 K/uL (0.00-0.20) 01/22/24 05:52 Immature Gran # (Auto) 0.02 K/uL (0.01-0.20) 01/22/24 05:52 Sodium 134 mmol/L (136-145) L 01/23/24 04:48 Potassium 3.7 mmol/L (3.5-5.1) 01/23/24 04:48 Chloride 101 mmol/L (98-107) 01/23/24 04:48 Carbon Dioxide 29 mmol/L (21-32) 01/23/24 04:48 Anion Gap 4 (3-11) 01/23/24 04:48 BUN 31 mg/dl (6-23) H 01/23/24 04:48 Creatinine 1.43 mg/dl (0.6-1.2) H 01/23/24 04:48 Est Cr Clr Drug Dosing 30.3 ml/min 01/23/24 04:48 Est GFR ( Amer) 38.1 ml/min 01/23/24 04:48 Est GFR (Non-Af Amer) 32.8 ml/min 01/23/24 04:48 BUN/Creatinine Ratio 21.7 (10-20) H 01/23/24 04:48 Glucose 102 mg/dl (70-99(Fasting)) H 01/23/24 04:48 Calcium 7.9 mg/dl (8.6-10.3) L 01/23/24 04:48 Magnesium 2.0 mg/dl (1.7-2.4) 01/23/24 04:48 Total Bilirubin 0.6 mg/dl (0.2-1.0) 01/22/24 05:52 AST 18 U/L (13-39) 01/22/24 05:52 ALT 7 U/L (7-52) 01/22/24 05:52 Alkaline Phosphatase 52 U/L (34-104) 01/22/24 05:52 Total Protein 6.0 gm/dl (6.0-8.3) 01/22/24 05:52 Albumin 3.2 gm/dl (3.4-5.0) L 01/22/24 05:52 Globulin 2.8 gm/dl (2.5-4.0) 01/22/24 05:52 Albumin/Globulin Ratio 1.1 (0.9-2) 01/22/24 05:52 TSH 7.093 uIu/ml (0.300-4.500) H 01/22/24 05:52 Free T4 1.11 ng/dl (0.61-1.60) 01/22/24 05:52 Free T3 2.60 pg/ml (2.3-4.2) 01/21/24 17:27 Impressions Knee X-Ray 01/21/24 11:39 XR knee RT 1 or 2V routine CLINICAL HISTORY: Surgical Post Op TECHNIQUE: 2 views of the right knee were obtained. Comparison: Comparison is made to knee radiographs 09/25/2022 FINDINGS: Patient is status post total knee arthroplasty with expected postsurgical changes including soft tissue swelling and subcutaneous emphysema. No periarticular lucency or hardware fracture is seen. IMPRESSION: Expected postoperative appearance status post placement of total knee arthroplasty. ACT 112: Negative or not required by law. Electronically signed by: Naif James M.D. 01/21/2024 12:[address] 01/22/24 09:53 CT head/brain wo con CLINICAL HISTORY: blurry vision, elevated BP Technique: Contiguous axial CT images of the head were acquired from the base of the skull to the vertex without intravenous contrast administration. Images were viewed in brain, subdural and bone windows. Automated dose lowering techniques and/or adjustment according to patient size were utilized for this exam. Comparison: Comparison is made to CTA head 11/05/2021 Findings: The ventricles, basal cisterns, and cerebral sulci are normal. There is no acute intracranial hemorrhage or evidence of acute territorial infarction. Neither mass effect, shift of the midline structures, nor abnormal extra-axial fluid collections are shown. Asymmetric prominence of the left temporal horn is again seen which may represent old infarct, this is unchanged from prior exam. Imaged portions of the paranasal sinuses and mastoid air cells are clear. The orbits appear normal. There are no acute fractures of the calvaria or scalp swelling. Impression: No acute intracranial hemorrhage, no evidence of acute territorial infarction or other acute intracranial disease process. ACT 112: Negative or not required by law. Electronically signed by: Naif James M.D. 01/22/2024 11:13 AM Chest X-Ray 01/22/24 22:15 XR chest 1V portable CLINICAL HISTORY: new oxygen requirement COMPARISON STUDY: Chest radiograph December 09, 2023. FINDINGS: Upper mediastinal widening is unchanged and likely due to vessels. A large hiatal hernia is noted. There is no pneumothorax or pleural effusion. Cardiomediastinal silhouette is stable. There is no evidence for overt pulmonary edema. IMPRESSION: 1. No acute cardiopulmonary findings. 2. Hiatal hernia. ACT 112: Negative or not required by law. Electronically signed by: Oscar Villatoro M.D. 01/23/2024 8:11 AM
--- NOTE | 2024-01-24 07:36 | Discharge Summary ---
Date of Service date of discharge: January 24, 2024 date of admission: 01/21/24 Principal Diagnosis Right knee osteoarthritis Discharge Exam Vital Signs Temp 36.7 C 01/24/24 03:36 Pulse 65 01/24/24 05:51 Resp 18 01/24/24 03:36 BP 164/67 H 01/24/24 05:51 Pulse Ox 96 01/24/24 03:36 O2 Del Method Room Air 01/24/24 03:36 O2 Flow Rate 2 01/23/24 19:52 Intake & Output 01/23/24 01/24/24 01/24/24 18:59 06:59 18:59 Intake Total 460 / 900 440 / 900 Balance 460 / 900 440 / 900 Weight 83.6 kg Intake: Oral 460 / 900 440 / 900 Other: Weight Measurement Method Built in [employer] Musculoskeletal Right Knee: NVDI, calf SNT, negative tammy sign. DP palpable, able to wiggle toes/ankle movement without difficulty. MASON dressing clean dry and intact. expected post-operative bruising noted. Discharge Data Allergies Allergy/AdvReac Type Severity Reaction Status Date / Time No Known Allergies Allergy Verified 01/21/24 08:16 Consultations 01/21/24 14:51 Consult Hospitalist Routine Procedures Performed Operation Date: 01/21/24 09:15 Actual Procedures p Right Total Knee Arthroplasty(Right) - Alan Vinson, Ordered Studies 01/21/24 05:00 US - OR guided needle placemen Routine 01/22/24 09:53 CT head/brain wo con Stat Hospital Course (1) History of total right knee replacement: POD #3 s/p Right TKA pt/ot PT recommends rehab vs SNF, she is approved for [employer] and will plan on family transportation after lunch today blurred vision has resolved, ativan seems to be helping as well, will add rx for po ativan prn for discharge dvt proph with JOCY/SCD/ASA Total Time Total Time Spent Total Time Spent (In Minutes): 20 Discharge Plan Discharge Items Patient Disposition: Transfer Custodial Fac Reason For Visit: Right Knee Osteoarthritis Discharge Diagnosis: right total knee replacement Activity: Per Instructions section Weightbearing Comment: WBAT with walker Non-emergency contact: Surgeon Call non-emergency contact if: you have any medication questions, your temperature is above 101, your wound has increased redness, your wound has increased drainage and your wound pain has increased Follow-up/Referrals: Grecia Kendall MD [Physician] - 01/29/24 3:20 pm PCP,NO [Physician] - Diet: Regular Ambulatory Orders: Basic Metabolic Panel (Routine) Timeframe: 20240124 Location: Determined by Patient Ordered By: Karen Astorga Attending Provider Instructions: ACTIVITY RECOMMENDATIONS: SELF CARE INSTRUCTIONS AFTER TOTAL KNEE REPLACEMENT A. You may need to continue a physical therapy program after discharge from the hospital. There are several options available to you. Your doctor will assist you in selecting the best one for you. 1. An out-patient facility 2 to 3 times a week for therapy or home therapy. 2. Continue working on all exercises taught to you in the hospital. Your goals should be to increase bending of your knee to 90 degrees and beyond and to fully straighten your knee. B. You may progress at your own pace from walking with a walker or crutches to a cane; then to no assistive devices. C. Make walking a part of your daily routine. Be up as much as comfortable with rest periods throughout the day. Rest with leg elevation is very important. Use the ice wrap frequently for the first 3-4 weeks. D. There are no restrictions on activities. You may ride in a car, shop, participate in tire bladder maker and all social activities. E. Wear the long elastic stockings (JOCY hose) 20 hours a day for 2 weeks after surgery. They can be removed several times a day for laundering and for a bath. F. You may shower, no tub baths until cleared by your doctor. SPECIAL CARE INSTRUCTIONS: VERY IMPORTANT TO READ AND REVIEW A. There are a few signs you need to watch for after you are home. Call [facility] if you notice any of the followin. Increased severe knee pain. Some pain is expected especially when you exercise. 2. Increased swelling in your leg or knee; pain or swelling of the calf muscle in either lower leg. 3. Any fluid drainage from the incision. 4. Shortness of breath or chest pain. B. Please call [facility] at if you have any concerns or questions about your operation or recovery. The doctor or his nurse will return your call promptly. C. You must take antibiotics before dental work, bladder, bowel or other surgery. Your doctor will provide you with a permanent care to carry describing this precaution. IMPORTANT: * REMEMBER TO TAKE ASPIRIN, 81 MG, TWICE DAILY FOR 4 WEEKS UNLESS OTHERWISE DIRECTED. THIS IS YOUR BLOOD THINNER. * HIGH RISK PATIENTS MAY BE PRESCRIBED A STRONGER BLOOD THINNER. THIS WILL BE PROVIDED AT DISCHARGE. * CALL IF INCREASED PAIN, REDNESS, DRAINAGE OR FEVER GREATER THAT 101. * WEAR JOCY HOSE 20 HOURS PER DAY FOR 2 WEEKS. DRESSING INSTRUCTIONS * MASON Dressing- This is a large suction dressing covering your incision. This will help pull any excess drainage from the wound and allow your incision to heal properly. You may shower with this if you can keep the unit outside of the shower. If any bleeding or leakage is noted please call your doctor's off ice. This will remain on your incision for 7 days and then should be removed. This can be done yourself or by the home nursing staff if applicable. The entire unit is disposable once removed. Once removed, keep incision clean and dry. If redness or drainage is noted, please call your surgeon. ONCE MASON IS REMOVED, FOLLOW THESE INSTRUCTIONS: DERMABOND Prineo- This is a mesh tape dressing that is covered with glue. It should remain in place until the incision is properly healed, usually 10-14 days. This dressing is designed to naturally slough off. You may trim the excess mesh tape as it peels off. Incision may be briefly wet in a shower. Dry immediately by blotting with a clean, dry towel. Do not bath or swim until instructed by your doctor. Do not scratch, rub, or pick at the dressing. Do not apply any topical ointments or lotions until dressing is completely removed and/or instructed by your doctor. There may be a small piece of suture material at one end of your incision. Do not pull or trim this. If it is bothersome or catching on clothing, you may cover it with a band-aid. IF INCISION IS LEAKING THROUGH DRESSING, CALL THE OFFICE . FOLLOW UP VISIT: If appointment is not already scheduled: Please call [facility] to make a follow-up appointment for 2 weeks after your surgery at . 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 This is a diuretic and can make this worse. You should continue to monitor your blood pressures at home and resume losartan 100mg for tomorrow. I have sent a new prescription. You should have repeat labs to monitor kidney function later this week and follow up with primary care. Please avoid NSAIDs - ibuprofen/aleve/motrin while on this. Your thyroid function testing will need repeated in 4-6 weeks to see if you need your Synthroid increased but your T4 was normal and you should continue current dose for now. You are being sent on aspirin to prevent blood clots. After completing the course you should remain on baby aspirin daily given your history of stroke as noted by cardiology. You should discuss about starting statin therapy for prevention as well but this can be discussed in follow up. Pending Studies at Discharge: No Stand-Alone Forms: My [facility] Skilled Items Patient informed of condition?: Yes DNR: No Discharge Level of Care: Skilled Communicable Disease: No Discharge Prognosis: Stable Lines: None Urinary Catheter: No Medications and DC Order Prescriptions: New aspirin 81 mg tablet,delayed release (DR/EC) 81 mg PO BID 30 Days Qty: 60 0RF acetaminophen 500 mg tablet 1,000 mg PO Q8 21 Days Qty: 126 0RF cefadroxil 500 mg capsule 500 mg PO BID 14 Days Qty: 28 0RF docusate sodium 100 mg Capsule 100 mg PO BID Qty: 20 0RF oxycodone 5 mg tablet 5 - 10 mg PO Q6H PRN (Reason: pain) Qty: 30 0RF Rx Instructions: ongoing therapy, supervising dr suzette vinson. max 6 tabs in 24 hours. date of surgery 01/21/24 losartan 100 mg tablet 100 mg PO DAILY Qty: 30 0RF lorazepam 0.5 mg Tablet 0.25 mg PO BID PRN (Reason: anxiety) Qty: 30 0RF losartan 50 mg Tablet 100 mg PO QAM Qty: 30 0RF Continued calcium carbonate 600 mg calcium (1,500 mg) tablet 600 mg PO QAM levothyroxine 100 mcg capsule 100 mcg PO QAM metoprolol succinate 50 mg tablet extended release 24 hr 50 mg PO BID Qty: 180 3RF citalopram 10 mg tablet 20 mg PO HS cholecalciferol (vitamin D3) [Vitamin D3] 125 mcg (5,000 unit) Tablet 125 mcg PO QAM Held losartan-hydrochlorothiazide 100-25 mg tablet 1 tab PO DAILY Qty: 30 11RF Hold Instructions: Resume on 01/27/24. Discontinued acetaminophen [Tylenol Extra Strength] 500 mg Tablet 500 mg PO HS Discharge Orders: Discharge Order (Routine); Ordered 01/24/24 Ordered By: Dagoberto Chua Admission Data Admit Date/Time: 01/23/24 13:28 Attending Provider: Alan Vinson Admit Provider: Alan Vinson Primary Care Provider: Nicole Romo Other Providers: [facility]; Inder Jackman; Karen Martinez; Enrico Juan; Ned Calvillo; Alan Tse; Octavio Gamez; Marianne Chambers; Alana Blake; Holly Auguste; Vikas Givens; Danny Castillo; Sole King; Carl Neri; Enrico Warner; Harshal Rosado; Haydee Hung; Maureen Gramajo; Jason Adam; Chiqui Haney; Boyd Richardson; Reese Gabriel; Aroldo Kruse; Makenna Mari; Milly Mena; Carlos Smith; Tatyana Abreu; Ned Zamora; Alan Bardales; Rebeca Luna; [facility]
--- NOTE | 2024-01-24 10:40 | Communication Note ---
Date of Service: January 24, 2024 Eval patient this morning, resting in bed comfortable. On oxygen but no SOB. Was placed on O2 overnight without drop. She notes she does have snoring history, never tested for sleep apnea. CXR yesterday negative for acute process but noted hiatal hernia. No issues w/ PO intake. No lightheaded/dizziness reported. Discussed some drops can occur w/ pain meds but will check CXR prior to dc for completeness but discussed CM to arrange for O2 at discharge and she can titrate off but continue 2L HS and should have formal outpatient sleep study. Of note, patient does have some claustrophobia and would benefit from nasal pillows over full face mask for increased compliance. CM arranging transport w/ oxygen to [facility].
--- NOTE | 2024-01-24 10:44 | XRay Report ---
XR chest 1V portable CLINICAL HISTORY: f/u hypoxia COMPARISON STUDY: Chest radiograph January 22, 2024. FINDINGS: Lung volumes are normal. There is no pneumothorax or pleural effusion. No consolidation is identified. A hiatal hernia is again noted. Cardiomediastinal silhouette is stable. There is no evide nce for pulmonary edema. IMPRESSION: No acute cardiopulmonary findings. No change in appearance of the chest. ACT 112: Negative or not required by law. Electronically signed by: Oscar Villatoro M.D. 01/24/2024 10:43 AM
== END 2024-01-24 13:30 | DRG 470 ==
LOC: ASU 07:32 → 2W 07:32